=== PATIENT | male | born 1950 | race Caucasian/White ===

== ENCOUNTER 2017-03-11 20:05 | Emergency (ER) | payer BC ==
[~2017-03-11] VITALS: Ht 177.8 cm; Wt 105.2 kg
[~2017-03-11 20:05] MED LIST: ACHD5005 PO; ALLP100T PO; ALLP300T PO; AMLO5TAB2 PO; ASP325T NG; ASP81TEC PO; ASPI-586 PO; ASPI-624 PO; ASPI-999 PO; ASPI325T32 PO; ATOR40TA70 PO; CARV12.53 PO; CARV3.12 PO; CARV3.122 PO; CARV6.252 PO; CIPR500T78 PO; CLN.1TRX PO; CLOP75TA28 PO; CLOT45CR46 TOP; COLC0.6T7 PO; CPR500T PO; CTLP20T PO; CYCL10TA9 PO; ETD400T PO; EZET1TAB31 PO; FEBU40TA PO; FRSM40T PO; FURO40TA4 PO; HYDR-3454 PO; HYDR-3876 PO; HYDR118S10 PO; HYDR1TAB PO; HYDR1TAB8 OP; INDO50CA PO; LIDO20SO20 PO; LISI20TA2 PO; LISI40TA PO; LOSA100T28 PO; LSNP10T; NITR-68 PO; ONDA-42 SL; OXYC-12 PO; POTA10CA43 PO; PRAV80TA2 PO; SPIR25TA3 PO; TADA2.5T PO; TAMS0.4C2 PO; TAMS0.4C9 PO; TAMS0.4C98 PO; TEST75GE3 TD; TRAM50TA2 PO; [UNRECOGNIZED DRUG - REMARK]
[2017-03-11] MEDS ORDERED: DIGO125T18 (20:16)
[2017-03-11] MEDS ORDERED: TADA5TAB2 (20:16)
[2017-03-11] MEDS ORDERED: AMLO2.5T (20:16)
--- NOTE | 2017-03-11 20:36 | ED Lower Extremity ---
General Chief Complaint: Lower Extremity Stated Complaint: R FOOT PAIN Nursing Triage Note: PAIN TO DISTAL INFERIOR 1ST METATARSAL X2.5-3 WEEKS. NO KNOWN INJURY Nursing Sepsis Screen: No Definite Risk Source: patient Exam Limitations: no limitations History of Present Illness Time seen by provider: 20:33 Initial Comments To ER with reports of pain to the plantar surface of the right foot at the first MTP joint for the past 2 and half to 3 weeks. Has a history of gout but that typically affects the left foot and has never affected the right foot. He states that he may have exacerbated this while climbing on a ladder about a week ago. Onset: just prior to arrival Severity: moderate Pain/Injury Location: right 1st toe Allergies and Home Medications Allergies Coded Allergies: No Known Drug Allergies (Unverified , 10/23/09) Home Medications Amlodipine Besylate 2.5 Mg Tablet, (Reported) Aspirin 81 Mg Tablet.dr, 81 MG PO DAILY, (Reported) Carvedilol 3.125 Mg Tablet, 3.125 MG PO BID, (Reported) Clopidogrel Bisulfate 75 Mg Tablet, 75 MG PO DAILY, (Reported) Digoxin 125 Mcg Tablet, (Reported) Tadalafil 5 Mg Tablet, (Reported) Tamsulosin HCl 0.4 Mg Cap.er.24h, 0.4 MG PO DAILY, (Reported) Constitutional: see HPI EENTM: see HPI Respiratory: no symptoms reported Cardiovascular: no symptoms reported Genitourinary: no symptoms reported Musculoskeletal: see HPI Skin: no symptoms reported Psychiatric/Neurological: No Symptoms Reported Past Parmhsk-Bgjbgl-Blusoa Hx Patient Social History Alcohol Use: Denies Use Recreational Drug Use: No Smoking Status: Never a Smoker Recent Foreign Travel: No Contact w/Someone Who Travel: No Recent Infectious Disease Expo: No Recent Hopitalizations: No Immunizations Up To Date Tetanus Booster (TDap): Less than 5yrs Seasonal Allergies Seasonal Allergies: Yes Surgeries History of Surgeries: No (CAROTID, CARDIAC CATH--NO STENTS, CABGx4, R WRIST,EGD , ppm/aicd) Surgeries: Cardiac, CABG, Orthopedic, Pacemaker, Vascular Surgery Respiratory History of Respiratory Disorde: Yes Respiratory Disorders: Asthma Cardiovascular History of Cardiac Disorders: Yes (CAROTID DISEASE) Cardiac Disorders: Coronary Artery Disease, High Cholesterol, Hypertension, Peripheral Vascular Neurological History of Neurological Disord: Yes Neurological Disorders: TIA Reproductive System Hx Reproductive Disorders: No Sexually Transmitted Disease: No HIV/AIDS: No Genitourinary History of Genitourinary Disor: Yes Genitourinary Disorders: Prostate Problems, Kidney Stones Gastrointestinal History of Gastrointestinal Di: Yes Gastrointestinal Disorders: Gastroesophageal Reflux, Chronic Diarrhea Musculoskeletal History of Musculoskeletal Dis: Yes (RIGHT WRIST FX ORIF) Musculoskeletal Disorders: Chronic Back Pain, Fractures, Gout Endocrine History of Endocrine Disorders: No HEENT History of HEENT Disorders: No Loss of Vision: Bilateral Hearing Impairment: Deaf Cancer History of Cancer: No Psychosocial History of Psychiatric Problem: Yes Behavioral Health Disorders: Anxiety Integumentary History of Skin or Integumenta: No Blood Transfusions History of Blood Disorders: No Adverse Reaction to a Blood Tr: No Family Medical History Family Medial History: Cancer 03 FATHER (lung ca passed at 65) History of - disorder 03 MOTHER ( from complication of surgery with staph infection) Kidney disease 09 SISTER ( from severe uti at age 54) Physical Exam Vital Signs Vital Sign - Last 12Hours 03/11/17 20:16 Temp 97.1 Pulse 76 Resp 16 B/P (MAP) 155/97 Pulse Ox 98 O2 Delivery Room Air Capillary Refill : Less Than 3 Seconds General Appearance: WD/WN, no apparent distress HEENT: PERRL/EOMI, normal ENT inspection Neck: non-tender, full range of motion Respiratory: no respiratory distress, no accessory muscle use Gastrointestinal: normal bowel sounds, non tender, soft Hips: bilateral hip non-tender, bilateral hip normal inspection, bilateral hip normal range of motion Legs: bilateral leg non-tender, bilateral leg normal inspection, bilateral leg normal range of motion Knees: bilateral knee non-tender, bilateral knee normal inspection, bilateral knee normal range of motion Ankles: bilateral ankle non-tender, bilateral ankle normal inspection, bilateral ankle normal range of motion Feet: right foot pain, right foot soft tissue tenderness (there is tenderness to palpation as well as a bit of erythema to the plantar surface of the right foot over the first MTP joint. No pain to the medial or dorsal aspect of the right foot.) Progress/Results/Core Measures Results/Orders My Orders Orders - SHIVA DECKER APRN Foot, Right, 3 View (03/11/17 20:33) Vital Signs/I&O Vital Sign - Last 12Hours 03/11/17 20:16 Temp 97.1 Pulse 76 Resp 16 B/P (MAP) 155/97 Pulse Ox 98 O2 Delivery Room Air Blood Pressure Mean: 116 Diagnostic Imaging Diagonstic Imaging: Xray Comments NAME: JEFFREY MASON [facility] REC#: [id number] PT STATUS: REG ER : 1950 PHYSICIAN: SHIVA DECKER APRN ADMIT DATE: 03/11/17/ER Draft Date of Exam:03/11/17 FOOT, RIGHT, 3 VIEW INDICATION: Right foot injury. COMPARISON: None. FINDINGS: 3 views of the right foot demonstrate no fracture or dislocation. Articular surfaces are age-appropriate. There is no foreign body. IMPRESSION: No fracture or dislocation. Dictated on workstation # [id number] Dict: 03/11/172054 Trans: 03/11/172057 [id number] Interpreted by: JHONNY BECERRA Electronically signed by: Departure Impression Impression: Primary Impression: Right foot pain Disposition: HOME, SELF-CARE Condition: Stable Departure-Patient Inst. Decision time for Depature: 21:01 Referrals: DENY GOMEZ MD (PCP/Family) Primary Care Physician Patient Instructions: NO INSTRUCTIONS GIVEN Add. Discharge Instructions: 1. Continue to use Tylenol and Motrin as needed for pain 2. Follow-up with Dr. Gomez. Call tomorrow to make an appointment All discharge instructions reviewed with patient and/or family. Voiced understanding. SHIVA DECKER APRN Mar 11, 2017 20:36
--- NOTE | 2017-03-11 20:59 | Diagnostic Imaging Report ---
INDICATION: Right foot injury. COMPARISON: None. FINDINGS: 3 views of the right foot demonstrate no fracture or dislocation. Articular surfaces are age-appropriate. There is no foreign body. IMPRESSION: No fracture or dislocation. Dictated by: Dictated on workstation # [id number]
[2017-03-11 21:11] VITALS: BP 155/97
[2017-03-11] MEDS ORDERED: DEXAMETHASONE 10 MG/ML (DECADRON) 1 ML VIAL IM ONE (21:15)
[2017-03-11] MEDS ORDERED: KETOROLAC 60 MG/2 ML VIAL IM ONE (21:15)
== END 2017-03-11 21:20 | disposition home or self-care (01) ==
LOC: EDUNIT# 20:05 → ER 20:06
DX: M79.671 Pain in right foot (principal); I25.10 Atherosclerotic heart disease of native coronary artery without angina pectoris; E78.00 Pure hypercholesterolemia, unspecified; I10 Essential (primary) hypertension; I73.9 Peripheral vascular disease, unspecified; J45.909 Unspecified asthma, uncomplicated; K21.9 Gastro-esophageal reflux disease without esophagitis; M10.9 Gout, unspecified; F41.9 Anxiety disorder, unspecified; Z80.1 Family history of malignant neoplasm of trachea, bronchus and lung; Z95.0 Presence of cardiac pacemaker; Z87.19 Personal history of other diseases of the digestive system; Z79.82 Long term (current) use of aspirin; Z86.73 Personal history of transient ischemic attack (TIA), and cerebral infarction without residual deficits; Z95.1 Presence of aortocoronary bypass graft; Z87.442 Personal history of urinary calculi
CPT/HCPCS: 73630; 99284

== ENCOUNTER → 2017-04-17 | Outpatient (CLI) | payer BC ==
[~2017-04-17] MED LIST changes: +AMLO2.5T; +DIGO125T18; +TADA5TAB2
--- NOTE | 2017-04-17 09:16 | Diagnostic Imaging Report ---
EXAMINATION: Bilateral diagnostic mammogram with tomography evaluation. CAD is utilized. The current study was also evaluated with a Computer Aided Detection (CAD) system. No prior studies are available for comparison. INDICATION: Bilateral breast pain FINDINGS: There is bilateral retroareolar fibroglandular tissue seen suggestive of gynecomastia more prominent on the right side with no suspicious mass seen. There is an intramammary lymph node in the upper outer aspect of the right breast, probably benign measuring 5 mm. Benign-appearing calcifications are noted. IMPRESSION: Bilateral gynecomastia more prominent on the right side. Ultrasound evaluation pending. BI-RADS 0. ACR BI-RADS Category 0: Incomplete. (Needs additional imaging evaluation). Result letter will be mailed to the patient. Note: At least 10% of breast cancer is not imaged by mammography. Dictated by: Dictated on workstation # [id number]
--- NOTE | 2017-04-17 10:55 | Diagnostic Imaging Report ---
EXAMINATION: Bilateral breast ultrasound. TECHNIQUE: All four quadrants and the retroareolar region were examined on this study. FINDINGS: There are bilateral retroareolar breast masses seen. On the right side, it measures up to 2.6 x 1.2 x 1.2 cm. On the left side, it measures 2 x 1.2 x 1.4 cm. They are somewhat symmetric and have flame-shaped posterior borders. The combined ultrasound and mammographic appearance and symmetry in the retroareolar location are typical of gynecomastia. No definite superimposed suspicious mass. The 4 quadrants of the breasts were scanned bilaterally as well. There are axillary and axillary tail benign-appearing lymph nodes seen on the right side. No suspicious mass. IMPRESSION: The findings are suggestive of bilateral gynecomastia. Clinical followup is recommended. If symptoms persist or worsen, then a followup mammogram and ultrasound could be obtained to ensure no adverse development. ACR BI-RADS Category 2: Benign findings. Dictated by: Dictated on workstation # [id number]
== END ==
LOC: RAD 08:03
PROVIDERS: ATTEND Nurse Practitioner Family
DX: N64.9 Disorder of breast, unspecified (principal)
CPT/HCPCS: 77066

== ENCOUNTER 2017-09-21 23:27 | Emergency (ER) | payer OTHER, BC ==
[~2017-09-21] VITALS: Ht 177.8 cm; Wt 105.2 kg
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
[2017-09-22 01:16] VITALS: BP 135/88
--- OUTSIDE RECORDS SUMMARY | 2017-09-22 06:52 | XMS REPORT | Continuity of Care Document ---
Author Author [facility] Organization [facility] Address Unknown Phone Unavailable Allergies Active Description Code Type Severity Reaction Onset Reported/Identified Relationship to Patient Clinical Status Yes No Known Drug Allergies [id number] Drug Allergy Mild N/A 10/23/2009 Medications There is no data. Problems Date Dx Coded Attending Type Code Diagnosis Diagnosed By 04/26/2010 Ot 435.9 04/26/2010 Ot 784.59 05/16/2010 Ot 719.47 05/31/2010 Ot 401.9 05/31/2010 Ot 435.9 05/31/2010 Ot 782.0 05/31/2010 Ot V58.66 05/31/2010 Ot V58.69 08/07/2010 Ot 813.44 FX LOW RADIUS W ULNA-CL 08/07/2010 Ot 959.3 ELB/FOREARM/ WRST INJ NOS 08/07/2010 Ot E000.8 OTHER EXTERNAL CAUSE STATUS 08/07/2010 Ot E849[address] NEC 08/07/2010 Ot E885.9 FALL FROM SLIPPING, TRIPPING, OR STUMBLI 02/05/2011 Ot 274.9 GOUT NOS 02/05/2011 Ot 401.9 HYPERTENSION NOS 02/05/2011 Ot 780.4 DIZZINESS AND GIDDINESS 02/05/2011 Ot V45.81 AORTOCORONARY BYPASS 12/13/2012 JEFF HEREDIA KARLEY K Ot 401.9 HYPERTENSION NOS 12/13/2012 JEFF DO KARLEY K Ot V58.69 OTH MED,LT,CURRENT USE 12/16/2012 MAREN WADDELL, JANELL Temple Ot 592.1 CALCULUS OF URETER 12/16/2012 MAREN WADDELL, JANELL Temple Ot 789.09 ABDOMINAL PAIN, OTHER SPECIFIED SITE 01/07/2013 CORNELL FREEMAN MD Ot 592.0 CALCULUS OF KIDNEY 01/07/2013 CORNELL FREEMAN MD Ot 789.03 ABDOMINAL PAIN, RIGHT LOWER QUADRANT 01/08/2013 JAYSHREE YOUNG MD Ot 401.9 HYPERTENSION NOS 01/08/2013 JAYSHREE YOUNG MD Ot 493.90 ASTHMA, UNSPECIFIED 01/08/2013 JAYSHREE YOUNG MD Ot 592.0 CALCULUS OF KIDNEY 01/08/2013 JAYSHREE YOUNG MD Ot 789.03 ABDOMINAL PAIN, RIGHT LOWER QUADRANT 04/26/2013 ANASTACIA MCCONNELL Ot 840.9 SPRAIN SHOULDER/ARM NOS 04/26/2013 ANASTACIA MCCONNELL Ot 959.2 SHLDR/UPPER ARM INJ NOS 04/26/2013 ANASTACIA MCCONNELL Ot E000.8 OTHER EXTERNAL CAUSE STATUS 04/26/2013 ANASTACIA MCCONNELL Ot E849.0 ACCIDENT IN HOME 04/26/2013 ANASTACIA MCCONNELL Ot E927.0 OVEREXERTION FROM SUDDEN STRENUOUS MOVEM 06/19/2013 JOHANNA NUNEZ MD Ot 272.4 HYPERLIPIDEMIA NEC/NOS 06/19/2013 JOHANNA NUNEZ MD Ot 278.00 OBESITY, NOS 06/19/2013 JOHANNA NUNEZ MD Ot 401.9 HYPERTENSION NOS 06/19/2013 JOHANNA NUNEZ MD Ot 414.00 CORON ATHEROSCLER NOS TYPE VESSEL, NATIV 06/19/2013 JOHANNA NUNEZ MD Ot 786.50 CHEST PAIN NOS 06/19/2013 JOHANNA NUNEZ MD Ot V45.81 AORTOCORONARY BYPASS 06/19/2013 JOHANNA NUNEZ MD Ot V85.33 BODY MASS INDEX 33.0-33.9, ADULT 09/04/2013 ANASTACIA MCCONNELL Ot 112.9 CANDIDIASIS SITE NOS 09/04/2013 ANASTACIA MCCONNELL Ot 274.9 GOUT NOS 09/04/2013 ANASTACIA MCCONNELL Ot 729.5 PAIN IN LIMB 09/04/2013 ANASTACIA MCCONNELL Ot 782.3 EDEMA 10/30/2013 IGOR WADDELL, GINA Browne Ot 210.4 BENIGN DENITA MOUTH NEC/NOS 12/20/2014 Ot 414.01 12/20/2014 Ot 424.0 12/20/2014 Ot 429.3 12/20/2014 Ot V45.81 12/20/2014 Ot 272.4 12/20/2014 Ot 401.9 12/20/2014 Ot 780.79 12/20/2014 MAREN TULIO Ra FEDERAL LAW CLERK Ot 401.9 12/20/2014 MAREN TULIO Ra FEDERAL LAW CLERK Ot 414.01 12/20/2014 KAN WADDELL, WON Temple Ot 592.0 12/20/2014 AIMEE WADDELL FAC, ALI FACP CCDS Ot 272.4 12/20/2014 AIMEE WADDELL FAC, ALI FACP CCDS Ot 401.9 12/20/2014 AIMEE WADDELL FAC, ALI FACP CCDS Ot 414.00 12/20/2014 AIMEE WADDELL FAC, ALI FACP CCDS Ot 433.10 12/20/2014 AIMEE WADDELL FAC, ALI FACP CCDS Ot 780.79 12/20/2014 AIMEE WADDELL FAC, ALI FACP CCDS Ot V45.89 12/20/2014 IGOR WADDELL, GINA P Ot 784.2 12/20/2014 IGOR WADDELL, GINA P Ot V72.63 12/20/2014 IGOR WADDELL, GINA P Ot V72.81 12/20/2014 IGOR WADDELL, GINA P Ot V72.83 12/20/2014 IGOR WADDELL, GINA P Ot V72.84 12/20/2014 IGOR WADDELL, GINA P Ot V74.8 12/20/2014 CHARANJIT WALLER L FEDERAL LAW CLERK Ot 272.4 12/20/2014 CHARANJIT WALLER L FEDERAL LAW CLERK Ot 401.9 12/20/2014 BAIMACHARANJIT L FEDERAL LAW CLERK Ot 414.00 12/20/2014 BAIMA CHARANJIT L FEDERAL LAW CLERK Ot 425.4 12/20/2014 BAIMA CHARANJIT L FEDERAL LAW CLERK Ot 447.9 12/20/2014 BAIMA CHARANJIT L FEDERAL LAW CLERK Ot V45.89 12/20/2014 CHRISTIE NAYAK FEDERAL LAW CLERK Ot 272.4 12/20/2014 CHRISTIE NAYAK FEDERAL LAW CLERK Ot 274.9 12/20/2014 CHRISTIE NAYAK FEDERAL LAW CLERK Ot 401.9 01/07/2015 CHRISTIE NAYAK FEDERAL LAW CLERK Ot 257.2 01/07/2015 CHRISTIE NAYAK FEDERAL LAW CLERK Ot 414.00 01/07/2015 CHRISTIE NAYAK FEDERAL LAW CLERK Ot 433.10 01/09/2015 Ot 414.01 01/09/2015 Ot 424.0 01/09/2015 Ot 429.3 01/09/2015 Ot V45.81 01/09/2015 Ot 272.4 01/09/2015 Ot 401.9 01/09/2015 Ot 780.79 01/09/2015 TULIO ENGEL FEDERAL LAW CLERK Ot 401.9 01/09/2015 TULIO ENGEL FEDERAL LAW CLERK Ot 414.01 01/09/2015 KAN WADDELL, WON A Ot 592.0 01/09/2015 AIMEE WADDELL FACC, ALI FACP CCDS Ot 272.4 01/09/2015 AIMEE WADDELL FACC, ALI FACP CCDS Ot 401.9 01/09/2015 AIMEE WADDELL FACC, ALI FACP CCDS Ot 414.00 01/09/2015 AIMEE WADDELL FACC, ALI FACP CCDS Ot 433.10 01/09/2015 AIMEE WADDELL FACC, ALI FACP CCDS Ot 780.79 01/09/2015 AIMEE WADDELL FACC, ALI FACP CCDS Ot V45.89 01/09/2015 IGOR WADDELL, GINA P Ot 784.2 01/09/2015 IGOR WADDELL, GINA P Ot V72.63 01/09/2015 IGOR WADDELL, GINA P Ot V72.81 01/09/2015 IGOR WADDELL, GINA P Ot V72.83 01/09/2015 IGOR WADDELL, GINA P Ot V72.84 01/09/2015 IGOR WADDELL, GINA P Ot V74.8 01/09/2015 CHARANJIT WALLER L FEDERAL LAW CLERK Ot 272.4 01/09/2015 CHARANJIT WALLER L FEDERAL LAW CLERK Ot 401.9 01/09/2015 CHARANJIT WALLER L FEDERAL LAW CLERK Ot 414.00 01/09/2015 CHRISTIN CHARANJIT L FEDERAL LAW CLERK Ot 425.4 01/09/2015 BAIMA CHARANJIT L FEDERAL LAW CLERK Ot 447.9 01/09/2015 CHARANJIT WALLER L FEDERAL LAW CLERK Ot V45.89 01/09/2015 CHRISTIE NAYAK FEDERAL LAW CLERK Ot 272.4 01/09/2015 CHRISTIE NAYAK FEDERAL LAW CLERK Ot 274.9 01/09/2015 CHRISTIE NAYAK FEDERAL LAW CLERK Ot 401.9 01/09/2015 CHRISTIE NAYAK FEDERAL LAW CLERK Ot 257.2 01/09/2015 CHRISTIE NAYAK FEDERAL LAW CLERK Ot 414.00 01/09/2015 NAEL CHRISTIE Knapp FEDERAL LAW CLERK Ot 433.10 01/22/2015 Ot 414.01 01/22/2015 Ot 424.0 01/22/2015 Ot 429.3 01/22/2015 Ot V45.81 01/22/2015 Ot 272.4 01/22/2015 Ot 401.9 01/22/2015 Ot 780.79 01/22/2015 MARENTULIO FEDERAL LAW CLERK Ot 401.9 01/22/2015 MARENTULIO FEDERAL LAW CLERK Ot 414.01 01/22/2015 KAN WADDELL, WON Temple Ot 592.0 01/22/2015 AIMEE WADDELL FAC, ALI FACP CCDS Ot 272.4 01/22/2015 AIMEE WADDELL [facility], ALI FACP CCDS Ot 401.9 01/22/2015 AIMEE WADDELL [facility], ALI FACP CCDS Ot 414.00 01/22/2015 AIMEE WADDELL FAC, ALI FACP CCDS Ot 433.10 01/22/2015 AIMEE WADDELL [facility], ALI FACP CCDS Ot 780.79 01/22/2015 AIMEE WADDELL [facility], ALI FACP CCDS Ot V45.89 01/22/2015 IGOR WADDELL, GINA P Ot 784.2 01/22/2015 IGOR WADDELL, GINA P Ot V72.63 01/22/2015 IGOR WADDELL, GINA P Ot V72.81 01/22/2015 IGOR WADDELL, GINA P Ot V72.83 01/22/2015 IGOR WADDELL, GIAN P Ot V72.84 01/22/2015 IGOR WADDELL, GINA P Ot V74.8 01/22/2015 CHARANJIT WALLER L FEDERAL LAW CLERK Ot 272.4 01/22/2015 BAIAMANDA CHARANJIT L FEDERAL LAW CLERK Ot 401.9 01/22/2015 BAIAMANDA CHARANJIT L FEDERAL LAW CLERK Ot 414.00 01/22/2015 BAIMA CHARANJIT L FEDERAL LAW CLERK Ot 425.4 01/22/2015 BAIMA, CHARANJIT L FEDERAL LAW CLERK Ot 447.9 01/22/2015 BAIMA CHARANJIT L FEDERAL LAW CLERK Ot V45.89 01/22/2015 CHRISTIE NAYAK FEDERAL LAW CLERK Ot 272.4 01/22/2015 CHRISTIE NAYAK FEDERAL LAW CLERK Ot 274.9 01/22/2015 CHRISTIE NAYAK FEDERAL LAW CLERK Ot 401.9 01/22/2015 NAELCHRISTIE FEDERAL LAW CLERK Ot 257.2 01/22/2015 NAYAKCHRISTIE FEDERAL LAW CLERK Ot 414.00 01/22/2015 CHRISTIE NAYAK FEDERAL LAW CLERK Ot 433.10 01/22/2015 KARLEY AGUILAR DO Ot 592.1 CALCULUS OF URETER 01/22/2015 KARLEY AGUILAR DO Ot 789.00 ABDOMINAL PAIN, UNSPECIFIED SITE 01/24/2015 Ot 414.01 01/24/2015 Ot 424.0 01/24/2015 Ot 429.3 01/24/2015 Ot V45.81 01/24/2015 Ot 272.4 01/24/2015 Ot 401.9 01/24/2015 Ot 780.79 01/24/2015 MARENTULIO FEDERAL LAW CLERK Ot 401.9 01/24/2015 TULIO ENGEL FEDERAL LAW CLERK Ot 414.01 01/24/2015 KAN WADDELL, WON Temple Ot 592.0 01/24/2015 AIMEE WADDELL FACC, ALI FACP CCDS Ot 272.4 01/24/2015 AIMEE WADDELL FACC, ALI FACP CCDS Ot 401.9 01/24/2015 AIMEE WADDELL FACC, ALI FACP CCDS Ot 414.00 01/24/2015 AIMEE WADDELL FACC, ALI FACP CCDS Ot 433.10 01/24/2015 AIMEE WADDELL FACC, ALI FACP CCDS Ot 780.79 01/24/2015 AIMEE WADDELL FACC, ALI FACP CCDS Ot V45.89 01/24/2015 IGOR WADDELL, GINA P Ot 784.2 01/24/2015 IGOR WADDELL, GINA P Ot V72.63 01/24/2015 IGOR WADDELL, GINA P Ot V72.81 01/24/2015 IGOR WADDELL, GINA P Ot V72.83 01/24/2015 IGOR WADDELL, GINA P Ot V72.84 01/24/2015 IGOR WADDELL, GINA P Ot V74.8 01/24/2015 CHARANJIT WALLER L FEDERAL LAW CLERK Ot 272.4 01/24/2015 CHARANJIT WALLER L FEDERAL LAW CLERK Ot 401.9 01/24/2015 CHARANJIT WALLER L FEDERAL LAW CLERK Ot 414.00 01/24/2015 CHARANJIT WALLER L FEDERAL LAW CLERK Ot 425.4 01/24/2015 CHARANJIT WALLER L FEDERAL LAW CLERK Ot 447.9 01/24/2015 CHARANJIT WALLER FEDERAL LAW CLERK Ot V45.89 01/24/2015 NAELCHRISTIE FEDERAL LAW CLERK Ot 272.4 01/24/2015 CHRISTIE NAYAK FEDERAL LAW CLERK Ot 274.9 01/24/2015 CHRISTIE NAYAK FEDERAL LAW CLERK Ot 401.9 01/24/2015 CHRISTIE NAYAK FEDERAL LAW CLERK Ot 257.2 01/24/2015 NAYAKCHRISTIE FEDERAL LAW CLERK Ot 414.00 01/24/2015 NAYAKCHRISTIE FEDERAL LAW CLERK Ot 433.10 01/25/2015 KAN WADDELL, WON Temple Ot 592.0 CALCULUS OF KIDNEY 01/25/2015 KAN WADDELL, WON Temple Ot 592.1 CALCULUS OF URETER 01/25/2015 KAN WADDELL, WON Temple Ot 600.00 HYPERTROPHY (BENIGN) OF PROSTATE W/O URI 01/26/2015 KAN WADDELL, WON A Ot 592.9 01/26/2015 KAN WADDELL, WON A Ot 592.9 01/31/2015 KAN WADDELL, WON A Ot 592.0 01/31/2015 KAN WADDELL, WON A Ot 592.1 01/31/2015 KAN WADDELL, WON A Ot V72.63 01/31/2015 KAN WADDELL, WON A Ot V72.81 01/31/2015 KAN WADDELL, WON A Ot V74.8 02/10/2015 KAN WADDELL, WON A Ot 592.9 02/10/2015 KAN WADDELL, WON A Ot 592.0 02/10/2015 KAN WADDELL, WON A Ot 592.1 02/10/2015 KAN WADDELL, WON A Ot V72.63 02/10/2015 KAN WADDELL, WON A Ot V72.81 02/10/2015 KAN WADDELL, WON A Ot V74.8 02/18/2015 KAN WADDELL, WON A Ot V72.84 02/18/2015 KAN WADDELL, WON A Ot V72.84 02/22/2015 KAN WADDELL, WON Temple Ot 592.0 CALCULUS OF KIDNEY 02/24/2015 KAN WADDELL, WON A Ot 592.0 02/24/2015 KAN WADDELL, WON A Ot 562.10 02/24/2015 KAN WADDELL, WON A Ot 592.0 02/24/2015 KAN WADDELL, WON A Ot 592.1 03/25/2015 KAN WADDELL, WON A Ot 592.0 03/25/2015 KAN WADDELL, WON A Ot V67.09 04/07/2015 Ot 414.01 04/07/2015 Ot 424.0 04/07/2015 Ot 429.3 04/07/2015 Ot V45.81 04/07/2015 Ot 272.4 04/07/2015 Ot 401.9 04/07/2015 Ot 780.79 04/07/2015 TULIO ENEGL FEDERAL LAW CLERK Ot 401.9 04/07/2015 TULIO ENGEL M FEDERAL LAW CLERK Ot 414.01 04/07/2015 KAN WADDELL, WON A Ot 592.0 04/07/2015 AIMEE WADDELL FACC, ALI FACP CCDS Ot 272.4 04/07/2015 AIMEE WADDELL FACC, ALI FACP CCDS Ot 401.9 04/07/2015 AIMEE WADDELL FACC, ALI FACP CCDS Ot 414.00 04/07/2015 AIMEE WADDELL FACC, ALI FACP CCDS Ot 433.10 04/07/2015 AIMEE WADDELL FACC, ALI FACP CCDS Ot 780.79 04/07/2015 AIMEE WADDELL FACC, ALI FACP CCDS Ot V45.89 04/07/2015 IGOR WADDELL, GINA P Ot 784.2 04/07/2015 IGOR WADDELL, GINA P Ot V72.63 04/07/2015 IGOR WADDELL, GINA P Ot V72.81 04/07/2015 IGOR WADDELL, GINA P Ot V72.83 04/07/2015 IGOR WADDELL, GINA P Ot V72.84 04/07/2015 IGOR WADDELL, GINA P Ot V74.8 04/07/2015 CHARANJIT AWLLER FEDERAL LAW CLERK Ot 272.4 04/07/2015 CHARANJIT WALLER FEDERAL LAW CLERK Ot 401.9 04/07/2015 CHARANJIT WALLER L FEDERAL LAW CLERK Ot 414.00 04/07/2015 CHARANJIT WALLER FEDERAL LAW CLERK Ot 425.4 04/07/2015 CHARANJIT WALLER FEDERAL LAW CLERK Ot 447.9 04/07/2015 CHARANJIT WALLER FEDERAL LAW CLERK Ot V45.89 04/07/2015 CHRISTIE NAYAK FEDERAL LAW CLERK Ot 272.4 04/07/2015 CHRISTIE NAYAK FEDERAL LAW CLERK Ot 274.9 04/07/2015 CHRISTIE NAYAK FEDERAL LAW CLERK Ot 401.9 04/07/2015 CHRISTIE NAYAK FEDERAL LAW CLERK Ot 257.2 04/07/2015 CHRISTIE NAYAK FEDERAL LAW CLERK Ot 414.00 04/07/2015 CHRISTIE NAYAK FEDERAL LAW CLERK Ot 433.10 04/07/2015 KAN WADDELL, WON A Ot 592.9 04/07/2015 KAN WADDELL, WON A Ot 592.0 04/07/2015 KAN WADDELL, WON A Ot 592.1 04/07/2015 KAN WADDELL, WON A Ot V72.63 04/07/2015 KAN WADDELL, WON A Ot V72.81 04/07/2015 KAN WADDELL, WON A Ot V74.8 04/07/2015 KAN WADDELL, WON A Ot V72.84 04/07/2015 KAN WADDELL, WON A Ot 592.0 04/07/2015 KAN WADEDLL, WON A Ot 562.10 04/07/2015 KAN WADDELL, WON A Ot 592.0 04/07/2015 KAN WADDELL, WON A Ot 592.1 04/07/2015 KAN WADDELL, WON A Ot 592.0 04/07/2015 KAN WADDELL, WON A Ot V72.84 04/07/2015 KAN WADDELL, WON A Ot 592.0 04/07/2015 KAN WADDELL, WON A Ot V67.09 04/07/2015 Ot 414.01 04/07/2015 Ot 424.0 04/07/2015 Ot 429.3 04/07/2015 Ot V45.81 04/07/2015 Ot 272.4 04/07/2015 Ot 401.9 04/07/2015 Ot 780.79 04/07/2015 TULIO ENGEL FEDERAL LAW CLERK Ot 401.9 04/07/2015 TULIO ENGEL FEDERAL LAW CLERK Ot 414.01 04/07/2015 KAN WADDELL, WON A Ot 592.0 04/07/2015 AIMEE WADDELL [facility], ALI FACP CCDS Ot 272.4 04/07/2015 AIMEE WADDELL [facility], ALI FACP CCDS Ot 401.9 04/07/2015 AIMEE WADDELL [facility], ALI FACP CCDS Ot 414.00 04/07/2015 AIMEE WADDELL [facility], ALI FACP CCDS Ot 433.10 04/07/2015 AIMEE WADDELL [facility], ALI FACP CCDS Ot 780.79 04/07/2015 AIMEE WADDELL [facility], ALI FACP CCDS Ot V45.89 04/07/2015 IGOR WADDELL, GINA P Ot 784.2 04/07/2015 IGOR WADDELL, GINA P Ot V72.63 04/07/2015 IGOR WADDELL, GINA P Ot V72.81 04/07/2015 IGOR WADDELL, GINA P Ot V72.83 04/07/2015 IGOR WADDELL, GINA P Ot V72.84 04/07/2015 IGOR WADDELL, GINA P Ot V74.8 04/07/2015 CHARANJIT WALLER FEDERAL LAW CLERK Ot 272.4 04/07/2015 CHARANJIT WALLER FEDERAL LAW CLERK Ot 401.9 04/07/2015 CHARANJIT WALLER L FEDERAL LAW CLERK Ot 414.00 04/07/2015 CHARANJIT WALLER FEDERAL LAW CLERK Ot 425.4 04/07/2015 CHARANJIT WALLER L FEDERAL LAW CLERK Ot 447.9 04/07/2015 CHARANJIT WALLER L FEDERAL LAW CLERK Ot V45.89 04/07/2015 CHRISTIE NAYAK FEDERAL LAW CLERK Ot 272.4 04/07/2015 CHRISTIE NAYAK FEDERAL LAW CLERK Ot 274.9 04/07/2015 CHRISTIE NAYAK FEDERAL LAW CLERK Ot 401.9 04/07/2015 CHRISTIE NAYAK FEDERAL LAW CLERK Ot 257.2 04/07/2015 CHRISTIE NAYAK FEDERAL LAW CLERK Ot 414.00 04/07/2015 CHRISTIE NAYAK FEDERAL LAW CLERK Ot 433.10 04/07/2015 KAN WADDELL, WON Temple Ot 592.9 04/07/2015 KAN WADDELL, WON A Ot 592.0 04/07/2015 KAN WADDELL, WON A Ot 592.1 04/07/2015 KAN WADDELL, WON A Ot V72.63 04/07/2015 KAN WADDELL, WON A Ot V72.81 04/07/2015 KAN WADDELL, WON A Ot V74.8 04/07/2015 KAN WADDELL, WON A Ot V72.84 04/07/2015 KAN WADDELL, WON A Ot 592.0 04/07/2015 KAN WADDELL, WON A Ot 562.10 04/07/2015 KAN WADDELL, WON A Ot 592.0 04/07/2015 KAN WADDELL, WON A Ot 592.1 04/07/2015 KAN WADDELL, WON A Ot 592.0 04/07/2015 KAN WADDELL, WON A Ot V72.84 04/07/2015 KAN WADDELL, WON A Ot 592.0 04/07/2015 KAN WADDELL, WON A Ot V67.09 07/03/2015 Ot 414.01 07/03/2015 Ot 424.0 07/03/2015 Ot 429.3 07/03/2015 Ot V45.81 07/03/2015 Ot 272.4 07/03/2015 Ot 401.9 07/03/2015 Ot 780.79 07/03/2015 TULIO ENGEL FEDERAL LAW CLERK Ot 401.9 07/03/2015 TULIO ENGEL M FEDERAL LAW CLERK Ot 414.01 07/03/2015 KAN WADDELL, WON Temple Ot 592.0 07/03/2015 AIMEE WADDELL FACC, ALI FACP CCDS Ot 272.4 07/03/2015 AIMEE WADDELL FACC, ALI FACP CCDS Ot 401.9 07/03/2015 AIMEE WADDELL FACC, ALI FACP CCDS Ot 414.00 07/03/2015 AIMEE WADDELL FACC, ALI FACP CCDS Ot 433.10 07/03/2015 AIMEE WADDELL FACC, ALI FACP CCDS Ot 780.79 07/03/2015 AIMEE WADDELL FACC, ALI FACP CCDS Ot V45.89 07/03/2015 IGOR WADDELL, GINA P Ot 784.2 07/03/2015 IGOR WADDELL, GINA P Ot V72.63 07/03/2015 IGOR WADDELL, GINA P Ot V72.81 07/03/2015 IGOR WADDELL, GINA P Ot V72.83 07/03/2015 IGOR WADDELL, GINA P Ot V72.84 07/03/2015 IGOR WADDELL, GINA P Ot V74.8 07/03/2015 BAIAMANDA, CHARANJIT L FEDERAL LAW CLERK Ot 272.4 07/03/2015 BAIAMANDA, CHARANJIT L FEDERAL LAW CLERK Ot 401.9 07/03/2015 BAIMA, CHARANJIT L FEDERAL LAW CLERK Ot 414.00 07/03/2015 BAIAMANDA, CHARANJIT L FEDERAL LAW CLERK Ot 425.4 07/03/2015 BAIAMANDA, CHARANJIT L FEDERAL LAW CLERK Ot 447.9 07/03/2015 BAIAMANDA, CHARANJIT L FEDERAL LAW CLERK Ot V45.89 07/03/2015 NAYAKCHRISTIE FEDERAL LAW CLERK Ot 272.4 07/03/2015 NAYAKCHRISTIE FEDERAL LAW CLERK Ot 274.9 07/03/2015 CHRISTIE NAYAK FEDERAL LAW CLERK Ot 401.9 07/03/2015 NAYAKCHRISTIE FEDERAL LAW CLERK Ot 257.2 07/03/2015 NAYAKCHRISTIE FEDERAL LAW CLERK Ot 414.00 07/03/2015 NAELCHRISTIE FEDERAL LAW CLERK Ot 433.10 07/03/2015 KAN WADDELL, WON A Ot 592.9 07/03/2015 KAN WADDELL, WON A Ot 592.0 07/03/2015 KAN WADDELL, WON A Ot 592.1 07/03/2015 KAN WADDELL, WON A Ot V72.63 07/03/2015 KAN WADDELL, WON A Ot V72.81 07/03/2015 KNA WADDELL, WON A Ot V74.8 07/03/2015 KAN WADDELL, WON A Ot V72.84 07/03/2015 KAN WDADELL, WON A Ot 592.0 07/03/2015 KAN WADDELL, WON A Ot 562.10 07/03/2015 KAN WADDELL, WON A Ot 592.0 07/03/2015 KAN WADDELL, WON A Ot 592.1 07/03/2015 KAN WADDELL, WON A Ot 592.0 07/03/2015 KAN WADDELL, WON A Ot V72.84 07/03/2015 KAN WADDELL, WON A Ot 592.0 07/03/2015 KAN WADDELL, WON A Ot V67.09 07/03/2015 WEI WADDELL, GARRISON Zarate Ot 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, 07/03/2015 WEI WADDELL, GARRISON Zarate Ot G45.9 TRANSIENT CEREBRAL ISCHEMIC ATTACK, UNSP 07/03/2015 WEI WADDELL, GARRISON Zarate Ot I10 ESSENTIAL (PRIMARY) HYPERTENSION 07/03/2015 WEI WADDELL, GARRISON Zarate Ot I51.7 CARDIOMEGALY 07/03/2015 WEI WADDELL, GARRISON Zarate Ot Z95.1 PRESENCE OF AORTOCORONARY BYPASS GRAFT 07/04/2015 Ot 414.01 07/04/2015 Ot 424.0 07/04/2015 Ot 429.3 07/04/2015 Ot V45.81 07/04/2015 Ot 272.4 07/04/2015 Ot 401.9 07/04/2015 Ot 780.79 07/04/2015 MARENTULIO FEDERAL LAW CLERK Ot 401.9 07/04/2015 MAREN TULIO Knapp FEDERAL LAW CLERK Ot 414.01 07/04/2015 KAN WADDELL, WON Temple Ot 592.0 07/04/2015 AIMEE WADDELL FACC, ALI FACP CCDS Ot 272.4 07/04/2015 AIMEE WADDELL FACC, ALI FACP CCDS Ot 401.9 07/04/2015 AIMEE WADDELL FACC, ALI FACP CCDS Ot 414.00 07/04/2015 AIMEE WADDELL FACC, ALI FACP CCDS Ot 433.10 07/04/2015 AIMEE WADDELL FACC, ALI FACP CCDS Ot 780.79 07/04/2015 AIMEE WADDELL FACC, ALI FACP CCDS Ot V45.89 07/04/2015 IGOR WADDELL, GINA P Ot 784.2 07/04/2015 IGOR WADDELL, GINA P Ot V72.63 07/04/2015 IGOR WADDELL, GINA P Ot V72.81 07/04/2015 IGOR WADDELL, GINA P Ot V72.83 07/04/2015 IGOR WADDELL, GINA P Ot V72.84 07/04/2015 IGOR WADDELL, GINA P Ot V74.8 07/04/2015 CHARANJIT WALLER FEDERAL LAW CLERK Ot 272.4 07/04/2015 CHARANJIT WALLER FEDERAL LAW CLERK Ot 401.9 07/04/2015 CHARANJIT WALLER FEDERAL LAW CLERK Ot 414.00 07/04/2015 CHARANJIT WALLER FEDERAL LAW CLERK Ot 425.4 07/04/2015 CHARANJIT WALLER FEDERAL LAW CLERK Ot 447.9 07/04/2015 CHARANJIT WALLER FEDERAL LAW CLERK Ot V45.89 07/04/2015 CHRISTIE NAYAK FEDERAL LAW CLERK Ot 272.4 07/04/2015 CHRISTIE NAYAK FEDERAL LAW CLERK Ot 274.9 07/04/2015 CHRISTIE NAYAK FEDERAL LAW CLERK Ot 401.9 07/04/2015 CHRISTIE NAYAK FEDERAL LAW CLERK Ot 257.2 07/04/2015 CHRISTIE NAYAK FEDERAL LAW CLERK Ot 414.00 07/04/2015 CHRISTIE NAYAK FEDERAL LAW CLERK Ot 433.10 07/04/2015 KAN WADDELL, WON A Ot 592.9 07/04/2015 KAN WADDELL, WON A Ot 592.0 07/04/2015 KAN WADDELL, WON A Ot 592.1 07/04/2015 KAN WADDELL, WON A Ot V72.63 07/04/2015 KAN WADDELL, WON A Ot V72.81 07/04/2015 KAN WADDELL, WON A Ot V74.8 07/04/2015 KAN WADDELL, WON A Ot V72.84 07/04/2015 KAN WADDELL, WON A Ot 592.0 07/04/2015 KAN WADDELL, WON A Ot 562.10 07/04/2015 KAN WADDELL, WON A Ot 592.0 07/04/2015 KAN WADDELL, WON A Ot 592.1 07/04/2015 KAN WADDELL, WON A Ot 592.0 07/04/2015 KAN WADDELL, WON A Ot V72.84 07/04/2015 KAN WADDELL, WON A Ot 592.0 07/04/2015 KAN WADDELL, WON A Ot V67.09 07/21/2015 Ot 414.01 07/21/2015 Ot 424.0 07/21/2015 Ot 429.3 07/21/2015 Ot V45.81 07/21/2015 Ot 272.4 07/21/2015 Ot 401.9 07/21/2015 Ot 780.79 07/21/2015 TULIO ENGEL FEDERAL LAW CLERK Ot 401.9 07/21/2015 TULIO ENGEL FEDERAL LAW CLERK Ot 414.01 07/21/2015 KAN WADDELL, WON A Ot 592.0 07/21/2015 AIMEE WADDELL FAC, ALI FACP CCDS Ot 272.4 07/21/2015 AIMEE WADDELL [facility], ALI FACP CCDS Ot 401.9 07/21/2015 AIMEE WADDELL [facility], ALI FACP CCDS Ot 414.00 07/21/2015 AIMEE WADDELL [facility], ALI FACP CCDS Ot 433.10 07/21/2015 AIMEE WADDELL [facility], ALI FACP CCDS Ot 780.79 07/21/2015 AIMEE WADDELL [facility], ALI FACP CCDS Ot V45.89 07/21/2015 IGOR WADDELL, GINA P Ot 784.2 07/21/2015 IGOR WADDELL, GINA P Ot V72.63 07/21/2015 IGOR WADDELL, GINA P Ot V72.81 07/21/2015 IGOR WADDELL, GINA P Ot V72.83 07/21/2015 IGOR WADDELL, GINA P Ot V72.84 07/21/2015 IGOR WADDELL, GINA P Ot V74.8 07/21/2015 CHARANJIT WALLER FEDERAL LAW CLERK Ot 272.4 07/21/2015 CHARANJIT WALLER L FEDERAL LAW CLERK Ot 401.9 07/21/2015 CHARANJIT WALLER L FEDERAL LAW CLERK Ot 414.00 07/21/2015 CHARANJIT WALLER L FEDERAL LAW CLERK Ot 425.4 07/21/2015 CHARANJIT WALLER L FEDERAL LAW CLERK Ot 447.9 07/21/2015 CHARANJIT WALLER L FEDERAL LAW CLERK Ot V45.89 07/21/2015 CHRISTIE NAYAK FEDERAL LAW CLERK Ot 272.4 07/21/2015 CHRISTIE NAYAK FEDERAL LAW CLERK Ot 274.9 07/21/2015 CHRISTIE NAYAK FEDERAL LAW CLERK Ot 401.9 07/21/2015 CHRISTIE NAYAK FEDERAL LAW CLERK Ot 257.2 07/21/2015 CHRISTIE NAYAK FEDERAL LAW CLERK Ot 414.00 07/21/2015 CHRISTIE NAYAK FEDERAL LAW CLERK Ot 433.10 07/21/2015 KAN WADDELL, WON A Ot 592.9 07/21/2015 KAN WADDELL, WON A Ot 592.0 07/21/2015 KAN WADDELL, WON A Ot 592.1 07/21/2015 KAN WADDELL, WON A Ot V72.63 07/21/2015 KAN WADDELL, WON A Ot V72.81 07/21/2015 KAN WADDELL, WON A Ot V74.8 07/21/2015 KAN WADDELL, WON A Ot V72.84 07/21/2015 KAN WADDELL, WON A Ot 592.0 07/21/2015 KNA WADDELL, WON A Ot 562.10 07/21/2015 KAN WADDELL, WON A Ot 592.0 07/21/2015 KAN WADDELL, WON A Ot 592.1 07/21/2015 KAN WADDELL, WON A Ot 592.0 07/21/2015 KAN WADDELL, WON A Ot V72.84 07/21/2015 KAN WADDELL, WON A Ot 592.0 07/21/2015 KAN WADDELL, WON A Ot V67.09 07/21/2015 CHRISTIE NAYAK FEDERAL LAW CLERK Ot G45.9 07/21/2015 CHRISTIE NAYAK FEDERAL LAW CLERK Ot H53.8 07/21/2015 CHRISTIE NAYAK FEDERAL LAW CLERK Ot R03.0 07/22/2015 CHRISTIE NAYAK FEDERAL LAW CLERK Ot G45.9 07/22/2015 CHRISTIE NAYAK FEDERAL LAW CLERK Ot H53.8 07/22/2015 CHRISTIE NAYAK FEDERAL LAW CLERK Ot R03.0 09/01/2015 Ot 414.01 09/01/2015 Ot 424.0 09/01/2015 Ot 429.3 09/01/2015 Ot V45.81 09/01/2015 Ot 272.4 09/01/2015 Ot 401.9 09/01/2015 Ot 780.79 09/01/2015 TULIO ENGEL FEDERAL LAW CLERK Ot 401.9 09/01/2015 TULIO ENGEL FEDERAL LAW CLERK Ot 414.01 09/01/2015 KAN WADDELL, WON A Ot 592.0 09/01/2015 AIMEE WADDELL FACC, ALI FACP CCDS Ot 272.4 09/01/2015 AIMEE WADDELL FACC, ALI FACP CCDS Ot 401.9 09/01/2015 AIMEE WADDELL FACC, ALI FACP CCDS Ot 414.00 09/01/2015 AIMEE WADDELL FACC, ALI FACP CCDS Ot 433.10 09/01/2015 AIMEE WADDELL FAC, ALI FACP CCDS Ot 780.79 09/01/2015 AIMEE WADDELL FACC, ALI FACP CCDS Ot V45.89 09/01/2015 IGOR WADDELL, GINA P Ot 784.2 09/01/2015 IGOR WADDELL, GINA P Ot V72.63 09/01/2015 IGOR WADDELL, GINA P Ot V72.81 09/01/2015 IGOR WADDELL, GINA P Ot V72.83 09/01/2015 IGOR WADDELL, GINA P Ot V72.84 09/01/2015 IGOR WADDELL, GINA P Ot V74.8 09/01/2015 BAIMAMELACHARANJIT L FEDERAL LAW CLERK Ot 272.4 09/01/2015 BAIMA CHARANJIT L FEDERAL LAW CLERK Ot 401.9 09/01/2015 BAIMA, CHARANJIT L FEDERAL LAW CLERK Ot 414.00 09/01/2015 BAIMA, CHARANJIT L FEDERAL LAW CLERK Ot 425.4 09/01/2015 BAIMA, CHARANJIT L FEDERAL LAW CLERK Ot 447.9 09/01/2015 BAIMA CHARANJIT L FEDERAL LAW CLERK Ot V45.89 09/01/2015 CHRISTIE NAYAK FEDERAL LAW CLERK Ot 272.4 09/01/2015 CHRISTIE NAYAK FEDERAL LAW CLERK Ot 274.9 09/01/2015 CHRISTIE NAYAK FEDERAL LAW CLERK Ot 401.9 09/01/2015 CHRISTIE NAYAK FEDERAL LAW CLERK Ot 257.2 09/01/2015 CHRISTIE NAYAK FEDERAL LAW CLERK Ot 414.00 09/01/2015 CHRISTIE NAYAK FEDERAL LAW CLERK Ot 433.10 09/01/2015 KAN WADDELL, WON A Ot 592.9 09/01/2015 KAN WADDELL, WON A Ot 592.0 09/01/2015 KAN WADDELL, WON A Ot 592.1 09/01/2015 KAN WADDELL, WON A Ot V72.63 09/01/2015 KAN WADDELL, WON A Ot V72.81 09/01/2015 KAN WADDELL, WON A Ot V74.8 09/01/2015 KAN WADDELL, WON A Ot V72.84 09/01/2015 KAN WADDELL, WON A Ot 592.0 09/01/2015 KAN WADDELL, WON A Ot 562.10 09/01/2015 KAN WADDELL, WON Temple Ot 592.0 09/01/2015 KAN WADDELL, WON Temple Ot 592.1 09/01/2015 KAN WADDELL, WON Temple Ot 592.0 09/01/2015 KAN WADDELL, WON Temple Ot V72.84 09/01/2015 KAN WADDELL, WON Temple Ot 592.0 09/01/2015 KAN WADDELL, WON Temple Ot V67.09 09/01/2015 NAEL CHRISTIE Knapp FEDERAL LAW CLERK Ot G45.9 09/01/2015 NAEL CHRISTIE Knapp FEDERAL LAW CLERK Ot H53.8 09/01/2015 JONH NAYAKHANIE Ra FEDERAL LAW CLERK Ot R03.0 10/02/2015 HANNAH WADDELL, JAYSHREE Waller Ot 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, LEFT ANKLE AND FOOT 10/04/2015 HANNAH WADDELL, JAYSHREE Waller Ot M10.072 01/23/2016 Ot 414.01 CORONARY ATHEROSCLEROSIS OF AUGUSTINE CORON 01/23/2016 Ot 424.0 MITRAL VALVE DISORDER 01/23/2016 Ot 429.3 CARDIOMEGALY 01/23/2016 Ot V45.81 AORTOCORONARY BYPASS 01/23/2016 Ot 272.4 HYPERLIPIDEMIA NEC/NOS 01/23/2016 Ot 401.9 HYPERTENSION NOS 01/23/2016 Ot 780.79 OTH MALAISE FATIGUE 01/23/2016 TULIO ENGEL FEDERAL LAW CLERK Ot 401.9 HYPERTENSION NOS 01/23/2016 TULIO ENGEL FEDERAL LAW CLERK Ot 414.01 CORONARY ATHEROSCLEROSIS OF A[place]UST[place] CORON 01/23/2016 KAN WADDELL, WON Maverick Ot 592.0 CALCULUS OF KIDNEY 01/23/2016 AIMEE WADDELL FACC, ALI FACP CCDS Ot 272.4 HYPERLIPIDEMIA NEC/NOS 01/23/2016 AIMEE WADDELL FACC, ALI FACP CCDS Ot 401.9 HYPERTENSION NOS 01/23/2016 AIMEE WADDELL FACC, ALI FACP CCDS Ot 414.00 CORON ATHEROSCLER NOS TYPE VESSEL, NATIV 01/23/2016 AIMEE WADDELL FACC, ALI FACP CCDS Ot 433.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 W O CEREBRAL IN 01/23/2016 AIMEE WADDELL FACC, ALI FACP CCDS Ot 780.79 OTH MALAISE FATIGUE 01/23/2016 AIMEE WADDELL FACC, ALI FACP CCDS Ot V45.89 POSTSURGICAL STATES NEC 01/23/2016 GINA COSTA MD Ot 784.2 SWELLING IN HEAD NECK 01/23/2016 GINA COSTA MD Ot V72.63 PRE-PROCEDURAL LABORATORY EXAMINATION 01/23/2016 GINA COSTA MD Ot V72.81 [id number] CARDIOVASCULAR 01/23/2016 GINA COSTA MD Ot V72.83 EXAM PRE-OPERATIVE NEC 01/23/2016 GINA COSTA MD Ot V72.84 EXAM PRE-OPERATIVE NOS 01/23/2016 GINA COSTA MD Ot V74.8 SCREEN-BACTERIAL DIS NEC 01/23/2016 CHARANJIT WALLER L FEDERAL LAW CLERK Ot 272.4 HYPERLIPIDEMIA NEC/NOS 01/23/2016 CHARANJIT WALLER L FEDERAL LAW CLERK Ot 401.9 HYPERTENSION NOS 01/23/2016 CHARANJIT WALLER L FEDERAL LAW CLERK Ot 414.00 CORON ATHEROSCLER NOS TYPE VESSEL, NATIV 01/23/2016 CHARANJIT WALLER L FEDERAL LAW CLERK Ot 425.4 PRIM CARDIOMYOPATHY NEC 01/23/2016 MELA WALLERHER L FEDERAL LAW CLERK Ot 447.9 ARTERIAL DISEASE NOS 01/23/2016 CHRISTIN CHARANJIT L FEDERAL LAW CLERK Ot V45.89 POSTSURGICAL STATES NEC 01/23/2016 CHRISTIE NAYAK FEDERAL LAW CLERK Ot 272.4 HYPERLIPIDEMIA NEC/NOS 01/23/2016 CHRISTIE NAYAK FEDERAL LAW CLERK Ot 274.9 GOUT NOS 01/23/2016 CHRISTIE NAYAK FEDERAL LAW CLERK Ot 401.9 HYPERTENSION NOS 01/23/2016 CHRISTIE NAYAK FEDERAL LAW CLERK Ot 257.2 TESTICULAR HYPOFUNC NEC 01/23/2016 CHRISTIE NAYAK FEDERAL LAW CLERK Ot 414.00 CORON ATHEROSCLER NOS TYPE VESSEL, NATIV 01/23/2016 CHRISTIE NAYAK FEDERAL LAW CLERK Ot 433.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 W O CEREBRAL IN 01/23/2016 KAN WADDELL, WON Temple Ot 592.9 URINARY CALCULUS NOS 01/23/2016 KAN WADDELL, WON A Ot 592.0 CALCULUS OF KIDNEY 01/23/2016 WON OMER MD Ot 592.1 CALCULUS OF URETER 01/23/2016 WON OMER MD Ot V72.63 PRE-PROCEDURAL LABORATORY EXAMINATION 01/23/2016 WON OMER MD Ot V72.81 [id number] CARDIOVASCULAR 01/23/2016 KAN WADDELL, WON Temple Ot V74.8 SCREEN-BACTERIAL DIS NEC 01/23/2016 KAN WADDELL, WON Temple Ot V72.84 EXAM PRE-OPERATIVE NOS 01/23/2016 KAN WADDELL, WON Temple Ot 592.0 CALCULUS OF KIDNEY 01/23/2016 KAN WADDELL, WON Temple Ot 562.10 DIVERTICULOSIS COLON (W/O MENT OF HEMORR 01/23/2016 KAN WADDELL, WON Temple Ot 592.0 CALCULUS OF KIDNEY 01/23/2016 KAN WADDELL, WON Temple Ot 592.1 CALCULUS OF URETER 01/23/2016 KAN WADDELL, WON Temple Ot 592.0 CALCULUS OF KIDNEY 01/23/2016 KAN WADDELL, WON Temple Ot V72.84 EXAM PRE-OPERATIVE NOS 01/23/2016 KAN WADDELL, WON Temple Ot 592.0 CALCULUS OF KIDNEY 01/23/2016 KAN WADDELL, WON Temple Ot V67.09 SURGERY FOLLOW-UP, OTHER SURGERY 01/23/2016 CHRISTIE NAYAK FEDERAL LAW CLERK Ot G45.9 TRANSIENT CEREBRAL ISCHEMIC ATTACK, UNSP 01/23/2016 CHRISTIE NAYAK FEDERAL LAW CLERK Ot H53.8 OTHER VISUAL DISTURBANCES 01/23/2016 CHRISTIE NAYAK FEDERAL LAW CLERK Ot R03.0 ELEVATED BLOOD-PRESSURE READING, W/O RADHA 02/10/2016 Ot 414.01 CORONARY ATHEROSCLEROSIS OF AUGUST[place] CORON 02/10/2016 Ot 424.0 MITRAL VALVE DISORDER 02/10/2016 Ot 429.3 CARDIOMEGALY 02/10/2016 Ot V45.81 AORTOCORONARY BYPASS 02/10/2016 Ot 272.4 HYPERLIPIDEMIA NEC/NOS 02/10/2016 Ot 401.9 HYPERTENSION NOS 02/10/2016 Ot 780.79 OTH MALAISE FATIGUE 02/10/2016 TULIO ENGEL FEDERAL LAW CLERK Ot 401.9 HYPERTENSION NOS 02/10/2016 TULIO ENGEL FEDERAL LAW CLERK Ot 414.01 CORONARY ATHEROSCLEROSIS OF AUGUSTINE CORON 02/10/2016 WON OMER MD Ot 592.0 CALCULUS OF KIDNEY 02/10/2016 AIMEE WADDELL FACC, ALI FACP CCDS Ot 272.4 HYPERLIPIDEMIA NEC/NOS 02/10/2016 AIMEE WADDELL FACC, ALI FACP CCDS Ot 401.9 HYPERTENSION NOS 02/10/2016 AIMEE WADDELL [facility], [place] FACP CCDS Ot 414.00 CORON ATHEROSCLER NOS TYPE VESSEL, NATIV 02/10/2016 AIMEE MENJIVAR, [place] FACP CCDS Ot 433.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 W O CEREBRAL IN 02/10/2016 AIMEE WADDELL FACC, ABRAHAM FACP CCDS Ot 780.79 OTH MALAISE FATIGUE 02/10/2016 AIMEE WADDELL FACC, ABRAHAM FACP CCDS Ot V45.89 POSTSURGICAL STATES NEC 02/10/2016 IGOR WADDELL, GINA Browne Ot 784.2 SWELLING IN HEAD NECK 02/10/2016 IGOR WADDELL, GINA Browne Ot V72.63 PRE-PROCEDURAL LABORATORY EXAMINATION 02/10/2016 GINA COSTA MD Ot V72.81 [id number] CARDIOVASCULAR 02/10/2016 GINA COSTA MD Ot V72.83 EXAM PRE-OPERATIVE NEC 02/10/2016 GINA COSTA MD Ot V72.84 EXAM PRE-OPERATIVE NOS 02/10/2016 IGOR WADDELL, GINA Browne Ot V74.8 SCREEN-BACTERIAL DIS NEC 02/10/2016 CHARANJIT WALLER L FEDERAL LAW CLERK Ot 272.4 HYPERLIPIDEMIA NEC/NOS 02/10/2016 CHRISTIN CHARANJIT L FEDERAL LAW CLERK Ot 401.9 HYPERTENSION NOS 02/10/2016 CHARANJIT WALLER L FEDERAL LAW CLERK Ot 414.00 CORON ATHEROSCLER NOS TYPE VESSEL, NATIV 02/10/2016 CHARANJIT WALLER L FEDERAL LAW CLERK Ot 425.4 PRIM CARDIOMYOPATHY NEC 02/10/2016 MELA WALLERHER L FEDERAL LAW CLERK Ot 447.9 ARTERIAL DISEASE NOS 02/10/2016 CHARANJIT WALLER L FEDERAL LAW CLERK Ot V45.89 POSTSURGICAL STATES NEC 02/10/2016 CHRISTIE NAYAK FEDERAL LAW CLERK Ot 272.4 HYPERLIPIDEMIA NEC/NOS 02/10/2016 CHRISTIE NAYAK FEDERAL LAW CLERK Ot 274.9 GOUT NOS 02/10/2016 CHRISTIE NAYAK FEDERAL LAW CLERK Ot 401.9 HYPERTENSION NOS 02/10/2016 CHRISTIE NAYAK FEDERAL LAW CLERK Ot 257.2 TESTICULAR HYPOFUNC NEC 02/10/2016 CHRISTIE NAYAK FEDERAL LAW CLERK Ot 414.00 CORON ATHEROSCLER NOS TYPE VESSEL, NATIV 02/10/2016 CHRISTIE NAYAK FEDERAL LAW CLERK Ot 433.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 W O CEREBRAL IN 02/10/2016 KAN WADDELL, WON Temple Ot 592.9 URINARY CALCULUS NOS 02/10/2016 KAN WADDELL, WON A Ot 592.0 CALCULUS OF KIDNEY 02/10/2016 KAN WADDELL, WON A Ot 592.1 CALCULUS OF URETER 02/10/2016 WON OMER MD Ot V72.63 PRE-PROCEDURAL LABORATORY EXAMINATION 02/10/2016 WON OMER MD Ot V72.81 [id number] CARDIOVASCULAR 02/10/2016 WON OMER MD Ot V74.8 SCREEN-BACTERIAL DIS NEC 02/10/2016 WON OMER MD Ot V72.84 EXAM PRE-OPERATIVE NOS 02/10/2016 WON OMER MD Ot 592.0 CALCULUS OF KIDNEY 02/10/2016 KAN WADDELL, WON Temple Ot 562.10 DIVERTICULOSIS COLON (W/O MENT OF HEMORR 02/10/2016 WON OMER MD Ot 592.0 CALCULUS OF KIDNEY 02/10/2016 WON OMER MD A Ot 592.1 CALCULUS OF URETER 02/10/2016 WON OMER MD A Ot 592.0 CALCULUS OF KIDNEY 02/10/2016 WON OMER MD Ot V72.84 EXAM PRE-OPERATIVE NOS 02/10/2016 KAN WADDELL, WON Temple Ot 592.0 CALCULUS OF KIDNEY 02/10/2016 KAN WADDELL, WON Temple Ot V67.09 SURGERY FOLLOW-UP, OTHER SURGERY 02/10/2016 CHRISTIE NAYAKP Ot G45.9 TRANSIENT CEREBRAL ISCHEMIC ATTACK, UNSP 02/10/2016 CHRISTIE NAYAK FEDERAL LAW CLERK Ot H53.8 OTHER VISUAL DISTURBANCES 02/10/2016 CHRISTIE NAYAK FEDERAL LAW CLERK Ot R03.0 ELEVATED BLOOD-PRESSURE READING, W/O RADHA 04/25/2016 CHRISTIE NAYAK FEDERAL LAW CLERK Ot I10 ESSENTIAL (PRIMARY) HYPERTENSION 04/25/2016 CHRISTIE NAYAK FEDERAL LAW CLERK Ot R05 COUGH 04/25/2016 CHRISTIE NAYAK FEDERAL LAW CLERK Ot R06.02 SHORTNESS OF BREATH 04/25/2016 CHRISTIE NAYAK FEDERAL LAW CLERK Ot R06.83 SNORING 04/25/2016 CHRISTIE NAYAK FEDERAL LAW CLERK Ot R73.01 IMPAIRED FASTING GLUCOSE 04/30/2016 CHRISTIE NAYAK FEDERAL LAW CLERK Ot I10 ESSENTIAL (PRIMARY) HYPERTENSION 04/30/2016 CHRISTIE NAYAK FEDERAL LAW CLERK Ot R05 COUGH 04/30/2016 CHRISTIE NAYAK FEDERAL LAW CLERK Ot R06.02 SHORTNESS OF BREATH 04/30/2016 CHRISTIE NAYAK FEDERAL LAW CLERK Ot R06.83 SNORING 04/30/2016 CHRISTIE NAYAK FEDERAL LAW CLERK Ot R73.01 IMPAIRED FASTING GLUCOSE 05/03/2016 CHRISTIE NAYAK FEDERAL LAW CLERK Ot I10 ESSENTIAL (PRIMARY) HYPERTENSION 05/03/2016 CHRISTIE NAYAK FEDERAL LAW CLERK Ot R05 COUGH 05/03/2016 CHRISTIE NAYAK FEDERAL LAW CLERK Ot R06.02 SHORTNESS OF BREATH 05/03/2016 NAYAKCHRISTIE FEDERAL LAW CLERK Ot R06.83 SNORING 05/03/2016 NAYAKCHRISTIE FEDERAL LAW CLERK Ot R73.01 IMPAIRED FASTING GLUCOSE 05/14/2016 AIMEE WADDELL FACC, [place] FACP CCDS Ot E78.4 OTHER HYPERLIPIDEMIA 05/14/2016 AIMEE WADDELL FACC, ALI FACP CCDS Ot I11.0 HYPERTENSIVE HEART DISEASE WITH HEART FA 05/14/2016 AIMEE WADDELL FACC, ALI FACP CCDS Ot I25.10 ATHSCL HEART DISEASE OF [place]UST[place] CORONARY 05/14/2016 AIMEE WADDELL FACC, ALI FACP CCDS Ot I51.7 CARDIOMEGALY 05/14/2016 AIMEE WADDELL FACC ALI FACP CCDS Ot R06.02 SHORTNESS OF BREATH 05/16/2016 AIMEE WADDELL FACC, [place] FACP CCDS Ot E78.4 OTHER HYPERLIPIDEMIA 05/16/2016 AIMEE WADDELL FACC, ALI FACP CCDS Ot I11.0 HYPERTENSIVE HEART DISEASE WITH HEART FA 05/16/2016 AIMEE WADDELL FACC, ALI FACP CCDS Ot I25.10 ATHSCL HEART DISEASE OF [place] CORONARY 05/16/2016 AIMEE WADDELL FACC, ALI FACP CCDS Ot I51.7 CARDIOMEGALY 05/16/2016 AIMEE WADDELL FACC ALI FACP CCDS Ot R06.02 SHORTNESS OF BREATH 05/22/2016 NAEL CHRISTIE M FEDERAL LAW CLERK Ot G47.10 HYPERSOMNIA, UNSPECIFIED 05/22/2016 CHRISTIE NAYAK FEDERAL LAW CLERK Ot R06.02 SHORTNESS OF BREATH 05/22/2016 CHRISTIE NAYAK FEDERAL LAW CLERK Ot R06.83 SNORING 05/22/2016 CHRISTIE NAYAK FEDERAL LAW CLERK Ot G47.10 HYPERSOMNIA, UNSPECIFIED 05/22/2016 CHRISTIE NAYAK FEDERAL LAW CLERK Ot R06.02 SHORTNESS OF BREATH 05/22/2016 CHRISTIE NAYAK FEDERAL LAW CLERK Ot R06.83 SNORING 05/22/2016 AIMEE WADDELL FACC, [place] FACP CCDS Ot E78.4 OTHER HYPERLIPIDEMIA 05/22/2016 AIMEE WADDELL FACC, ALI FACP CCDS Ot I10 ESSENTIAL (PRIMARY) HYPERTENSION 05/22/2016 AIMEE WADDELL FACC, ALI FACP CCDS Ot I25.10 ATHSCL HEART DISEASE OF [place] CORONARY 05/22/2016 AIMEE WADDELL FACC, ALI FACP CCDS Ot I42.0 DILATED CARDIOMYOPATHY 05/22/2016 AIMEE WADDELL FACC, ALI FACP CCDS Ot I50.23 ACUTE ON CHRONIC SYSTOLIC (CONGESTIVE) H 05/22/2016 AIMEE WADDELL FACC, [place] FACP CCDS Ot I51.7 CARDIOMEGALY 05/24/2016 AIMEE WADDELL FACC, ALI FACP CCDS Ot E78.4 OTHER HYPERLIPIDEMIA 05/24/2016 AIMEE WADDELL FACC, ALI FACP CCDS Ot I10 ESSENTIAL (PRIMARY) HYPERTENSION 05/24/2016 AIMEE WADDELL FACC, ALI FACP CCDS Ot I25.10 ATHSCL HEART DISEASE OF [place]UST[place] CORONARY 05/24/2016 ABRAHAM YU MD, FACC FACP CCDS Ot I42.9 CARDIOMYOPATHY, UNSPECIFIED 05/24/2016 ABRAHAM YU MD, FACC FACP CCDS Ot R06.02 SHORTNESS OF BREATH 05/24/2016 AIMEE WADDELL FACC ALI FACP CCDS Ot E78.4 OTHER HYPERLIPIDEMIA 05/24/2016 AIMEE WADDELL FACC, ALI FACP CCDS Ot I10 ESSENTIAL (PRIMARY) HYPERTENSION 05/24/2016 AIMEE WADDELL FACC, ALI FACP CCDS Ot I25.10 ATHSCL HEART DISEASE OF [place]UST[place] CORONARY 05/24/2016 AIMEE WADDELL FACC, ALI FACP CCDS Ot I42.9 CARDIOMYOPATHY, UNSPECIFIED 05/24/2016 AIMEE WADDELL FACC, ALI FACP CCDS Ot R06.02 SHORTNESS OF BREATH 05/24/2016 AIMEE WADDELL FACC, ALI FACP CCDS Ot E66.9 OBESITY, UNSPECIFIED 05/24/2016 AIMEE WADDELL FACC, ALI FACP CCDS Ot E78.5 HYPERLIPIDEMIA, UNSPECIFIED 05/24/2016 AIMEE WADDELL FACC, ALI FACP CCDS Ot I10 ESSENTIAL (PRIMARY) HYPERTENSION 05/24/2016 AIMEE WADDELL FACC, ALI FACP CCDS Ot I25.10 ATHSCL HEART DISEASE OF [place]UST[place] CORONARY 05/24/2016 AIMEE WADDELL FACC, [place]RA[place] FACP CCDS Ot I42.0 DILATED CARDIOMYOPATHY 05/24/2016 AIMEE WADDELL FACC, ALI FACP CCDS Ot I44.7 LEFT BUNDLE-BRANCH BLOCK, UNSPECIFIED 05/24/2016 AIMEE WADDELL FACC, ALI FACP CCDS Ot I50.42 CHRONIC COMBINED SYSTOLIC AND DIASTOLIC 05/24/2016 AIMEE WADDELL FACC, ALI FACP CCDS Ot I71.2 THORACIC AORTIC ANEURYSM, WITHOUT RUPTUR 05/24/2016 AIMEE WADDELL FACC, ALI FACP CCDS Ot R53.82 CHRONIC FATIGUE, UNSPECIFIED 05/24/2016 AIMEE WADDELL FACC, ALI FACP CCDS Ot R73.09 OTHER ABNORMAL GLUCOSE 05/24/2016 AIMEE WADDELL FACC, ALI FACP CCDS Ot Z68.33 BODY MASS INDEX (BMI) 33.0-33.9, ADULT 05/24/2016 AIMEE WADDELL FACC, ALI FACP CCDS Ot Z79.899 OTHER PENITENTIARY (CURRENT) DRUG THERAPY 05/24/2016 AIMEE WADDELL FACC, ALI FACP CCDS Ot Z86.73 PRSNL HX OF TIA (TIA), AND CEREB INFRC W 05/24/2016 AIMEE WADDELL FACC, ALI FACP CCDS Ot Z95.1 PRESENCE OF AORTOCORONARY BYPASS GRAFT 05/25/2016 AIMEE WADDELL FACC, ALI FACP CCDS Ot E78.4 OTHER HYPERLIPIDEMIA 05/25/2016 AIMEE WADDELL FACC, ALI FACP CCDS Ot I11.0 HYPERTENSIVE HEART DISEASE WITH HEART FA 05/25/2016 AIMEE WADDELL FACC, ALI FACP CCDS Ot I25.10 ATHSCL HEART DISEASE OF [place] CORONARY 05/25/2016 AIMEE WADDELL FACC, ALI FACP CCDS Ot I51.7 CARDIOMEGALY 05/25/2016 AIMEE WADDELL FACC, ALI FACP CCDS Ot R06.02 SHORTNESS OF BREATH 05/27/2016 NAELCHRISTIE FEDERAL LAW CLERK Ot G47.10 HYPERSOMNIA, UNSPECIFIED 05/27/2016 NAELCHRISTIE FEDERAL LAW CLERK Ot R06.02 SHORTNESS OF BREATH 05/27/2016 NAYAKCHRISTIE FEDERAL LAW CLERK Ot R06.83 SNORING 05/27/2016 AIMEE WADDELL FACC, ALI FACP CCDS Ot E78.4 OTHER HYPERLIPIDEMIA 05/27/2016 AIMEE WADDELL FACC, ALI FACP CCDS Ot I10 ESSENTIAL (PRIMARY) HYPERTENSION 05/27/2016 AIMEE WADDELL FACC, ALI FACP CCDS Ot I25.10 ATHSCL HEART DISEASE OF [place] CORONARY 05/27/2016 AIMEE WADDELL FACC, ALI FACP CCDS Ot I42.0 DILATED CARDIOMYOPATHY 05/27/2016 AIMEE WADDELL FACC, ALI FACP CCDS Ot I50.23 ACUTE ON CHRONIC SYSTOLIC (CONGESTIVE) H 05/27/2016 AIMEE WADDELL FACC, ALI FACP CCDS Ot I51.7 CARDIOMEGALY 06/06/2016 IAMEE WADDELL FACC, ALI FACP CCDS Ot E78.4 OTHER HYPERLIPIDEMIA 06/06/2016 AIMEE WADDELL FACC, ALI FACP CCDS Ot I10 ESSENTIAL (PRIMARY) HYPERTENSION 06/06/2016 AIMEE WADDELL FACC, ALI FACP CCDS Ot I25.10 ATHSCL HEART DISEASE OF [place] CORONARY 06/06/2016 AIMEE WADDELL FACC, ALI FACP CCDS Ot I42.9 CARDIOMYOPATHY, UNSPECIFIED 06/06/2016 AIMEE WADDELL FACC, ALI FACP CCDS Ot R06.02 SHORTNESS OF BREATH 06/06/2016 AIMEE WADDELL FACC, ALI FACP CCDS Ot E78.4 OTHER HYPERLIPIDEMIA 06/06/2016 AIMEE WADDELL FACC, ALI FACP CCDS Ot I10 ESSENTIAL (PRIMARY) HYPERTENSION 06/06/2016 AIMEE WADDELL FACC, ALI FACP CCDS Ot I25.10 ATHSCL HEART DISEASE OF [place] CORONARY 06/06/2016 AIMEE WADDELL FACC, ALI FACP CCDS Ot I42.0 DILATED CARDIOMYOPATHY 06/06/2016 AIMEE WADDELL FACC, ALI FACP CCDS Ot I50.23 ACUTE ON CHRONIC SYSTOLIC (CONGESTIVE) H 06/06/2016 AIMEE WADDELL FACC, ALI FACP CCDS Ot I51.7 CARDIOMEGALY 07/03/2016 AIMEE WADDELL FACC, ALI FACP CCDS Ot E66.9 OBESITY, UNSPECIFIED 07/03/2016 AIMEE WADDELL FACC, ALI FACP CCDS Ot E78.5 HYPERLIPIDEMIA, UNSPECIFIED 07/03/2016 AIMEE WADDELL FACC, ALI FACP CCDS Ot I10 ESSENTIAL (PRIMARY) HYPERTENSION 07/03/2016 AIMEE WADDELL FACC, ALI FACP CCDS Ot I25.10 ATHSCL HEART DISEASE OF [place] CORONARY 07/03/2016 AIMEE WADDELL FACC, ALI FACP CCDS Ot I42.0 DILATED CARDIOMYOPATHY 07/03/2016 AIMEE WADDELL FACC, ALI FACP CCDS Ot I44.7 LEFT BUNDLE-BRANCH BLOCK, UNSPECIFIED 07/03/2016 AIMEE WADDELL FACC, ALI FACP CCDS Ot I50.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 COMBINED SYSTOLIC AND DIASTOLIC 07/03/2016 AIMEE WADDELL FACC, ALI FACP CCDS Ot I71.2 THORACIC AORTIC ANEURYSM, WITHOUT RUPTUR 07/03/2016 AIMEE WADDELL FACC, ALI FACP CCDS Ot R53.82 CHRONIC FATIGUE, UNSPECIFIED 07/03/2016 AIMEE WADDELL FACC, ALI FACP CCDS Ot R73.09 OTHER ABNORMAL GLUCOSE 07/03/2016 AIMEE WADDELL FACC, ALI FACP CCDS Ot Z68.33 BODY MASS INDEX (BMI) 33.0-33.9, ADULT 07/03/2016 AIMEE WADDELL FACC, ALI FACP CCDS Ot Z79.899 OTHER PENITENTIARY (CURRENT) DRUG THERAPY 07/03/2016 AIMEE WADDELL FACC, ALI FACP CCDS Ot Z86.73 PRSNL HX OF TIA (TIA), AND CEREB INFRC W 07/03/2016 AIMEE WADDELL FACC, ALI FACP CCDS Ot Z95.1 PRESENCE OF AORTOCORONARY BYPASS GRAFT 10/13/2016 Ot 414.01 CORONARY ATHEROSCLEROSIS OF [place]UST[place] CORON 10/13/2016 Ot 424.0 MITRAL VALVE DISORDER 10/13/2016 Ot 429.3 CARDIOMEGALY 10/13/2016 Ot V45.81 AORTOCORONARY BYPASS 10/13/2016 Ot 272.4 HYPERLIPIDEMIA NEC/NOS 10/13/2016 Ot 401.9 HYPERTENSION NOS 10/13/2016 Ot 780.79 OTH MALAISE FATIGUE 10/13/2016 TULIO ENGEL Ra FEDERAL LAW CLERK Ot 401.9 HYPERTENSION NOS 10/13/2016 TULIO ENGEL FEDERAL LAW CLERK Ot 414.01 CORONARY ATHEROSCLEROSIS OF [place]UST[place] CORON 10/13/2016 KAN WADDELL, WON Temple Ot 592.0 CALCULUS OF KIDNEY 10/13/2016 AIMEE WADDELL FAC, ALI FACP CCDS Ot 272.4 HYPERLIPIDEMIA NEC/NOS 10/13/2016 AIMEE WADDELL FACC, ALI FACP CCDS Ot 401.9 HYPERTENSION NOS 10/13/2016 AIMEE WADDELL FACC, ALI FACP CCDS Ot 414.00 CORON ATHEROSCLER NOS TYPE VESSEL, NATIV 10/13/2016 AIMEE WADDELL FACC, ALI FACP CCDS Ot 433.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 W O CEREBRAL IN 10/13/2016 AIMEE WADDELL FACC, ALI FACP CCDS Ot 780.79 OTH MALAISE FATIGUE 10/13/2016 AIMEE WADDELL FACC, ALI FACP CCDS Ot V45.89 POSTSURGICAL STATES NEC 10/13/2016 IGOR WADDELL, GINA P Ot 784.2 SWELLING IN HEAD NECK 10/13/2016 IGOR WADDELL, GINA P Ot V72.63 PRE-PROCEDURAL LABORATORY EXAMINATION 10/13/2016 IGOR WADDELL, GINA P Ot V72.81 [id number] CARDIOVASCULAR 10/13/2016 IGOR WADDELL, GINA P Ot V72.83 EXAM PRE-OPERATIVE NEC 10/13/2016 IGOR WADDELL, GINA P Ot V72.84 EXAM PRE-OPERATIVE NOS 10/13/2016 IGOR WADDELL, GINA P Ot V74.8 SCREEN-BACTERIAL DIS NEC 10/13/2016 CHARANJIT WALLER L FEDERAL LAW CLERK Ot 272.4 HYPERLIPIDEMIA NEC/NOS 10/13/2016 CHARANJIT WALLER L FEDERAL LAW CLERK Ot 401.9 HYPERTENSION NOS 10/13/2016 CHARANJIT WALLER L FEDERAL LAW CLERK Ot 414.00 CORON ATHEROSCLER NOS TYPE VESSEL, NATIV 10/13/2016 CHARANJIT WALLER L FEDERAL LAW CLERK Ot 425.4 PRIM CARDIOMYOPATHY NEC 10/13/2016 CHARANJIT WALLER L FEDERAL LAW CLERK Ot 447.9 ARTERIAL DISEASE NOS 10/13/2016 MELA WALLERHER L FEDERAL LAW CLERK Ot V45.89 POSTSURGICAL STATES NEC 10/13/2016 CHRISTIE NAYAK FEDERAL LAW CLERK Ot 272.4 HYPERLIPIDEMIA NEC/NOS 10/13/2016 CHRISTIE NAYAK FEDERAL LAW CLERK Ot 274.9 GOUT NOS 10/13/2016 CHRISTIE NAYAK FEDERAL LAW CLERK Ot 401.9 HYPERTENSION NOS 10/13/2016 CHRISTIE NAYAK FEDERAL LAW CLERK Ot 257.2 TESTICULAR HYPOFUNC NEC 10/13/2016 CHRISTIE NAYAK FEDERAL LAW CLERK Ot 414.00 CORON ATHEROSCLER NOS TYPE VESSEL, NATIV 10/13/2016 CHRISTIE NAYAK FEDERAL LAW CLERK Ot 433.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 W O CEREBRAL IN 10/13/2016 WON OMER MD Ot 592.9 URINARY CALCULUS NOS 10/13/2016 WON OMER MD Ot 592.0 CALCULUS OF KIDNEY 10/13/2016 WON OMER MD Ot 592.1 CALCULUS OF URETER 10/13/2016 WON OMER MD Ot V72.63 PRE-PROCEDURAL LABORATORY EXAMINATION 10/13/2016 WON OMER MD Ot V72.81 [id number] CARDIOVASCULAR 10/13/2016 WON OMER MD Ot V74.8 SCREEN-BACTERIAL DIS NEC 10/13/2016 WON OMER MD Ot V72.84 EXAM PRE-OPERATIVE NOS 10/13/2016 WON OMER MD Ot 592.0 CALCULUS OF KIDNEY 10/13/2016 WON OMER MD Ot 562.10 DIVERTICULOSIS COLON (W/O MENT OF HEMORR 10/13/2016 WON OMER MD Ot 592.0 CALCULUS OF KIDNEY 10/13/2016 WON OMER MD Ot 592.1 CALCULUS OF URETER 10/13/2016 WON OMER MD Ot 592.0 CALCULUS OF KIDNEY 10/13/2016 WON OMER MD Ot V72.84 EXAM PRE-OPERATIVE NOS 10/13/2016 WON OMER MD Ot 592.0 CALCULUS OF KIDNEY 10/13/2016 WON OMER MD Ot V67.09 SURGERY FOLLOW-UP, OTHER SURGERY 10/13/2016 CHRISTIE NAYAK FEDERAL LAW CLERK Ot G45.9 TRANSIENT CEREBRAL ISCHEMIC ATTACK, UNSP 10/13/2016 CHRISTIE NAYAK FEDERAL LAW CLERK Ot H53.8 OTHER VISUAL DISTURBANCES 10/13/2016 CHRISTIE NAYAK FEDERAL LAW CLERK Ot R03.0 ELEVATED BLOOD-PRESSURE READING, W/O RADHA 10/13/2016 CHRISTIE NAYAK FEDERAL LAW CLERK Ot I10 ESSENTIAL (PRIMARY) HYPERTENSION 10/13/2016 CHRISTIE NAYAK FEDERAL LAW CLERK Ot R05 COUGH 10/13/2016 CHRISTIE NAYAK FEDERAL LAW CLERK Ot R06.02 SHORTNESS OF BREATH 10/13/2016 CHRISTIE NAYAK FEDERAL LAW CLERK Ot R06.83 SNORING 10/13/2016 CHRISTIE NAYAK FEDERAL LAW CLERK Ot R73.01 IMPAIRED FASTING GLUCOSE 10/13/2016 AIMEE WADDELL FACC, ALI FACP CCDS Ot E78.4 OTHER HYPERLIPIDEMIA 10/13/2016 AIMEE WADDELL FACC, ALI FACP CCDS Ot I11.0 HYPERTENSIVE HEART DISEASE WITH HEART FA 10/13/2016 AIMEE WADDELL FACC, ALI FACP CCDS Ot I25.10 ATHSCL HEART DISEASE OF [place] CORONARY 10/13/2016 AIMEE WADDELL FACC, ALI FACP CCDS Ot I51.7 CARDIOMEGALY 10/13/2016 AIMEE WADDELL FACC, ALI FACP CCDS Ot R06.02 SHORTNESS OF BREATH 10/13/2016 AIMEE WADDELL FACC, ALI FACP CCDS Ot E78.4 OTHER HYPERLIPIDEMIA 10/13/2016 AIMEE WADDELL FACC, ALI FACP CCDS Ot I10 ESSENTIAL (PRIMARY) HYPERTENSION 10/13/2016 AIMEE WADDELL FACC, ALI FACP CCDS Ot I25.10 ATHSCL HEART DISEASE OF [place] CORONARY 10/13/2016 AIMEE WADDELL FACC, ALI FACP CCDS Ot I42.9 CARDIOMYOPATHY, UNSPECIFIED 10/13/2016 AIMEE WADDELL FACC, ALI FACP CCDS Ot R06.02 SHORTNESS OF BREATH 10/13/2016 AIMEE WADDELL FACC, ALI FACP CCDS Ot E78.4 OTHER HYPERLIPIDEMIA 10/13/2016 AIMEE WADDELL FACC, ALI FACP CCDS Ot I11.0 HYPERTENSIVE HEART DISEASE WITH HEART FA 10/13/2016 AIMEE WADDELL FACC, ALI FACP CCDS Ot I25.10 ATHSCL HEART DISEASE OF [place] CORONARY 10/13/2016 AIMEE WADDELL FACC, ALI FACP CCDS Ot I51.7 CARDIOMEGALY 10/13/2016 AIMEE WADDELL FACC, ALI FACP CCDS Ot R06.02 SHORTNESS OF BREATH 10/13/2016 AIMEE WADDELL FACC, ABRAHAM FACP CCDS Ot E78.4 OTHER HYPERLIPIDEMIA 10/13/2016 AIMEE WADDELL FACC, ALI FACP CCDS Ot I10 ESSENTIAL (PRIMARY) HYPERTENSION 10/13/2016 AIMEE WADDELL FACC, ALI FACP CCDS Ot I25.10 ATHSCL HEART DISEASE OF [place] CORONARY 10/13/2016 AIMEE WADDELL FACC, ALI FACP CCDS Ot I42.0 DILATED CARDIOMYOPATHY 10/13/2016 AIMEE AWDDELL FACC, ALI FACP CCDS Ot I50.23 ACUTE ON CHRONIC SYSTOLIC (CONGESTIVE) H 10/13/2016 AIMEE WADDELL FACC, ALI FACP CCDS Ot I51.7 CARDIOMEGALY 03/11/2017 Ot 414.01 CORONARY ATHEROSCLEROSIS OF [place]UST[place] CORON 03/11/2017 Ot 424.0 MITRAL VALVE DISORDER 03/11/2017 Ot 429.3 CARDIOMEGALY 03/11/2017 Ot V45.81 AORTOCORONARY BYPASS 03/11/2017 Ot 272.4 HYPERLIPIDEMIA NEC/NOS 03/11/2017 Ot 401.9 HYPERTENSION NOS 03/11/2017 Ot 780.79 OTH MALAISE FATIGUE 03/11/2017 TULIO ENGEL FEDERAL LAW CLERK Ot 401.9 HYPERTENSION NOS 03/11/2017 TULIO ENGEL FEDERAL LAW CLERK Ot 414.01 CORONARY ATHEROSCLEROSIS OF [place]UST[place] CORON 03/11/2017 KAN WADDELL, WON Temple Ot 592.0 CALCULUS OF KIDNEY 03/11/2017 AIMEE WADDELL FACC, ALI FACP CCDS Ot 272.4 HYPERLIPIDEMIA NEC/NOS 03/11/2017 AIMEE WADDELL FACC, ALI FACP CCDS Ot 401.9 HYPERTENSION NOS 03/11/2017 AIMEE WADDELL FACC, ALI FACP CCDS Ot 414.00 CORON ATHEROSCLER NOS TYPE VESSEL, NATIV 03/11/2017 AIMEE WADDELL FACC, ALI FACP CCDS Ot 433.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 W O CEREBRAL IN 03/11/2017 AIMEE WADDELL FACC, ALI FACP CCDS Ot 780.79 OTH MALAISE FATIGUE 03/11/2017 AIMEE WADDELL FACC, ALI FACP CCDS Ot V45.89 POSTSURGICAL STATES NEC 03/11/2017 GINA COSTA MD Ot 784.2 SWELLING IN HEAD NECK 03/11/2017 GINA COSTA MD Ot V72.63 PRE-PROCEDURAL LABORATORY EXAMINATION 03/11/2017 GINA COSTA MD Ot V72.81 [id number] CARDIOVASCULAR 03/11/2017 GINA COSTA MD Ot V72.83 EXAM PRE-OPERATIVE NEC 03/11/2017 GINA COSTA MD Ot V72.84 EXAM PRE-OPERATIVE NOS 03/11/2017 GINA COSTA MD Ot V74.8 SCREEN-BACTERIAL DIS NEC 03/11/2017 BAIMACHARANJIT L FEDERAL LAW CLERK Ot 272.4 HYPERLIPIDEMIA NEC/NOS 03/11/2017 BAIMA, CHARANJIT L FEDERAL LAW CLERK Ot 401.9 HYPERTENSION NOS 03/11/2017 BAIMA, CHARANJIT L FEDERAL LAW CLERK Ot 414.00 CORON ATHEROSCLER NOS TYPE VESSEL, NATIV 03/11/2017 BAIMA CHARANJIT L FEDERAL LAW CLERK Ot 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 W O CEREBRAL IN 03/11/2017 WON OMER MD Ot 592.9 URINARY CALCULUS NOS 03/11/2017 WON OMER MD Ot 592.0 CALCULUS OF KIDNEY 03/11/2017 WON OMER MD Ot 592.1 CALCULUS OF URETER 03/11/2017 WON OMER MD Ot V72.63 PRE-PROCEDURAL LABORATORY EXAMINATION 03/11/2017 WON OMER MD Ot V72.81 [id number] CARDIOVASCULAR 03/11/2017 WON OMER MD Ot V74.8 SCREEN-BACTERIAL DIS NEC 03/11/2017 WON OMER MD Ot V72.84 EXAM PRE-OPERATIVE NOS 03/11/2017 WON OMER MD Ot 592.0 CALCULUS OF KIDNEY 03/11/2017 KAN WADDELL, WON Temple Ot 562.10 DIVERTICULOSIS COLON (W/O MENT OF HEMORR 03/11/2017 KAN WADDELL, WON [place] Ot 592.0 CALCULUS OF KIDNEY 03/11/2017 WON OMER MD Ot 592.1 CALCULUS OF URETER 03/11/2017 WON OMER MD Ot 592.0 CALCULUS OF KIDNEY 03/11/2017 WON OMER MD Ot V72.84 EXAM PRE-OPERATIVE NOS 03/11/2017 KAN WADDELL, WON [place] Ot 592.0 CALCULUS OF KIDNEY 03/11/2017 KAN WADDELL, WON [place] Ot V67.09 SURGERY FOLLOW-UP, OTHER SURGERY 03/11/2017 CHRISTIE NAYAK FEDERAL LAW CLERK Ot G45.9 TRANSIENT CEREBRAL ISCHEMIC ATTACK, UNSP 03/11/2017 CHRISTIE NAYAK FEDERAL LAW CLERK Ot H53.8 OTHER VISUAL DISTURBANCES 03/11/2017 CHRISTIE NAYAK FEDERAL LAW CLERK Ot R03.0 ELEVATED BLOOD-PRESSURE READING, W/O RADHA 03/11/2017 CHRISTIE NAYAK FEDERAL LAW CLERK Ot I10 ESSENTIAL (PRIMARY) HYPERTENSION 03/11/2017 CHRISTIE NAYAK FEDERAL LAW CLERK Ot R05 COUGH 03/11/2017 CHRISTIE NAYAK FEDERAL LAW CLERK Ot R06.02 SHORTNESS OF BREATH 03/11/2017 CHRISTIE NAYAK FEDERAL LAW CLERK Ot R06.83 SNORING 03/11/2017 CHRISTIE NAYAK FEDERAL LAW CLERK Ot R73.01 IMPAIRED FASTING GLUCOSE 03/11/2017 AIMEE WADDELL FACC, ABRAHAM FACP CCDS Ot E78.4 OTHER HYPERLIPIDEMIA 03/11/2017 AIMEE WADDELL FACC, ABRAHAM FACP CCDS Ot I11.0 HYPERTENSIVE HEART DISEASE WITH HEART FA 03/11/2017 AIMEE WADDELL FACC, ABRAHAM FACP CCDS Ot I25.10 ATHSCL HEART DISEASE OF [place] CORONARY 03/11/2017 AIMEE WADDELL FACC, ABRAHAM FACP CCDS Ot I51.7 CARDIOMEGALY 03/11/2017 AIMEE WADDELL FACC, ABRAHAM FACP CCDS Ot R06.02 SHORTNESS OF BREATH 03/11/2017 AIMEE WADDELL FACC, ABRAHAM FACP CCDS Ot E78.4 OTHER HYPERLIPIDEMIA 03/11/2017 AIMEE WADDELL FACC, ALI FACP CCDS Ot I10 ESSENTIAL (PRIMARY) HYPERTENSION 03/11/2017 AIMEE WADDELL FACC, ALI FACP CCDS Ot I25.10 ATHSCL HEART DISEASE OF [place] CORONARY 03/11/2017 AIMEE WADDELL FACC, ALI FACP CCDS Ot I42.9 CARDIOMYOPATHY, UNSPECIFIED 03/11/2017 AIMEE WADDELL FACC, ALI FACP CCDS Ot R06.02 SHORTNESS OF BREATH 03/11/2017 AIMEE WADDELL FACC, ALI FACP CCDS Ot E78.4 OTHER HYPERLIPIDEMIA 03/11/2017 AIMEE WADDELL FACC, ALI FACP CCDS Ot I11.0 HYPERTENSIVE HEART DISEASE WITH HEART FA 03/11/2017 AIMEE WADDELL FACC, ALI FACP CCDS Ot I25.10 ATHSCL HEART DISEASE OF [place] CORONARY 03/11/2017 AIMEE WADDELL FACC, ALI FACP CCDS Ot I51.7 CARDIOMEGALY 03/11/2017 AIMEE WADDELL FACC, ALI FACP CCDS Ot R06.02 SHORTNESS OF BREATH 03/11/2017 AIMEE WADDELL FACC, ALI FACP CCDS Ot E78.4 OTHER HYPERLIPIDEMIA 03/11/2017 AIMEE WADDELL FACC, ALI FACP CCDS Ot I10 ESSENTIAL (PRIMARY) HYPERTENSION 03/11/2017 AIMEE WADDELL FACC, ALI FACP CCDS Ot I25.10 ATHSCL HEART DISEASE OF [place] CORONARY 03/11/2017 AIMEE WADDELL FACC, ALI FACP CCDS Ot I42.0 DILATED CARDIOMYOPATHY 03/11/2017 AIMEE WADDELL FACC, ALI FACP CCDS Ot I50.23 ACUTE ON CHRONIC SYSTOLIC (CONGESTIVE) H 03/11/2017 AIMEE WADDELL FACC, ALI FACP CCDS Ot I51.7 CARDIOMEGALY 03/11/2017 SHIVA DECKER APRN Ot E78.00 PURE HYPERCHOLESTEROLEMIA, UNSPECIFIED 03/11/2017 SHIVA DECKER APRN Ot F41.9 ANXIETY DISORDER, UNSPECIFIED 03/11/2017 SHIVA DECKER FISHERIES MANAGEMENT BIOLOGIST Ot I10 ESSENTIAL (PRIMARY) HYPERTENSION 03/11/2017 SHIVA DECKER FISHERIES MANAGEMENT BIOLOGIST Ot I25.10 ATHSCL HEART DISEASE OF [place] CORONARY 03/11/2017 SHIVA DECKER APRN Ot I73.9 PERIPHERAL VASCULAR DISEASE, UNSPECIFIED 03/11/2017 SHIVA DECKER APRN Ot J45.909 UNSPECIFIED ASTHMA, UNCOMPLICATED 03/11/2017 SHIVA DECKER APRN Ot K21.9 GASTRO-ESOPHAGEAL REFLUX DISEASE WITHOUT 03/11/2017 SHIVA DECKER APRN Ot M10.9 GOUT, UNSPECIFIED 03/11/2017 SHIVA DECKER APRN Ot M79.671 PAIN IN RIGHT FOOT 03/11/2017 SHIVA DECKER APRN Ot Z79.82 STAVE CUTTER (CURRENT) USE OF ASPIRIN 03/11/2017 SHIVA DECKER APRN Ot Z80.1 FAMILY HISTORY OF MALIG NEOPLASM OF TRAC 03/11/2017 SHIVA DECKER APRN Ot Z86.73 PRSNL HX OF TIA (TIA), AND CEREB INFRC W 03/11/2017 SHIVA DECKER APRN Ot Z87.19 PERSONAL HISTORY OF OTHER DISEASES OF TH 03/11/2017 SHIVA DECKER APRN Ot Z87.442 PERSONAL HISTORY OF URINARY CALCULI 03/11/2017 SHIVA DECKER APRN Ot Z95.0 PRESENCE OF CARDIAC PACEMAKER 03/11/2017 SHIVA DECKER APRN Ot Z95.1 PRESENCE OF AORTOCORONARY BYPASS GRAFT 03/13/2017 SHIVA DECKER APRN Ot E78.00 PURE HYPERCHOLESTEROLEMIA, UNSPECIFIED 03/13/2017 SHIVA DECKER APRN Ot F41.9 ANXIETY DISORDER, UNSPECIFIED 03/13/2017 SHIVA DECKER APRN Ot I10 ESSENTIAL (PRIMARY) HYPERTENSION 03/13/2017 SHIVA DECKER APRN Ot I25.10 ATHSCL HEART DISEASE OF [place] CORONARY 03/13/2017 SHIVA DECKER APRN Ot I73.9 PERIPHERAL VASCULAR DISEASE, UNSPECIFIED 03/13/2017 SHIVA DECKER APRN Ot J45.909 UNSPECIFIED ASTHMA, UNCOMPLICATED 03/13/2017 SHIVA DECKER APRN Ot K21.9 GASTRO-ESOPHAGEAL REFLUX DISEASE WITHOUT 03/13/2017 SHIVA DECKER APRN Ot M10.9 GOUT, UNSPECIFIED 03/13/2017 SHIVA DECKER APRN Ot M79.671 PAIN IN RIGHT FOOT 03/13/2017 SHIVA DECKER APRN Ot Z79.82 PENITENTIARY (CURRENT) USE OF ASPIRIN 03/13/2017 DECKER, PETER J FISHERIES MANAGEMENT BIOLOGIST Ot Z80.1 FAMILY HISTORY OF MALIG NEOPLASM OF [place] 03/13/2017 SHIVA DECKER APRN Ot Z86.73 PRSNL HX OF TIA (TIA), AND CEREB INFRC W 03/13/2017 SHIVA DECKER APRN Ot Z87.19 PERSONAL HISTORY OF OTHER DISEASES OF TH 03/13/2017 SHIVA DECKER APRN Ot Z87.442 PERSONAL HISTORY OF URINARY CALCULI 03/13/2017 SHIVA DECKER APRN Ot Z95.0 PRESENCE OF CARDIAC PACEMAKER 03/13/2017 SHIVA DECKER APRN Ot Z95.1 PRESENCE OF AORTOCORONARY BYPASS GRAFT 04/25/2017 RYAN HAYS FISHERIES MANAGEMENT BIOLOGIST Ot N64.9 DISORDER OF BREAST, UNSPECIFIED Procedures There is no data. Results Test Result Range Complete blood count (CBC) with automated white blood cell (WBC) differential - 04/24/16 10:45 Blood leukocytes automated count (number/volume) 9.9 10*3/uL 4.3-11.0 Blood erythrocytes automated count (number/volume) 5.23 10*6/uL 4.35-5.85 Venous blood hemoglobin measurement (mass/volume) 16.5 g/dL 13.3-17.7 Blood hematocrit (volume fraction) 47 % 40-54 Automated erythrocyte mean corpuscular volume 90 [foz_us] 80-99 Automated erythrocyte mean corpuscular hemoglobin (mass per erythrocyte) 32 pg 25-34 Automated erythrocyte mean corpuscular hemoglobin concentration measurement ( mass/volume) 35 g/dL 32-36 Automated erythrocyte distribution width ratio 14.8 % 10.0-14.5 Automated blood platelet count (count/volume) 190 10*3/uL 130-400 Automated blood platelet mean volume measurement 10.3 [foz_us] 7.4-10.4 Automated blood neutrophils/100 leukocytes 65 % 42-75 Automated blood lymphocytes/100 leukocytes 26 % 12-44 Blood monocytes/100 leukocytes 7 % 0-12 Automated blood eosinophils/100 leukocytes 2 % 0-10 Automated blood basophils/100 leukocytes 1 % 0-10 Blood neutrophils automated count (number/volume) 6.4 10*3 1.8-7.8 Blood lymphocytes automated count (number/volume) 2.6 10*3 1.0-4.0 Blood monocytes automated count (number/volume) 0.6 10*3 0.0-1.0 Automated eosinophil count 0.2 10*3/uL 0.0-0.3 Automated blood basophil count (count/volume) 0.1 10*3/uL 0.0-0.1 Comprehensive metabolic panel - 04/24/16 10:45 Serum or plasma sodium measurement (moles/volume) 141 mmol/L 135-145 Serum or plasma potassium measurement (moles/volume) 4.2 mmol/L 3.6-5.0 Serum or plasma chloride measurement (moles/volume) 110 mmol/L 98-107 Carbon dioxide 21 mmol/L 21-32 Serum or plasma anion gap determination (moles/volume) 10 mmol/L 5-14 Serum or plasma urea nitrogen measurement (mass/volume) 12 mg/dL 7-18 Serum or plasma creatinine measurement (mass/volume) 1.05 mg/dL 0.60-1.30 Serum or plasma urea nitrogen/creatinine mass ratio 11 NRG Serum or plasma creatinine measurement with calculation of estimated glomerular filtration rate > NRG Serum or plasma glucose measurement (mass/volume) 104 mg/dL 70-105 Serum or plasma calcium measurement (mass/volume) 9.3 mg/dL 8.5-10.1 Serum or plasma total bilirubin measurement (mass/volume) 1.2 mg/dL 0.1-1.0 Serum or plasma alkaline phosphatase measurement (enzymatic activity/volume) 81 U/L 40-136 Serum or plasma aspartate aminotransferase measurement (enzymatic activity/ volume) 16 U/L 5-34 Serum or plasma alanine aminotransferase measurement (enzymatic activity/volume ) 22 U/L 0-55 Serum or plasma protein measurement (mass/volume) 7.1 g/dL 6.4-8.2 Serum or plasma albumin measurement (mass/volume) 4.4 g/dL 3.2-4.5 Lipid 1996 panel - 04/24/16 10:45 Serum or plasma triglyceride measurement (mass/volume) 110 mg/dL <150 Serum or plasma cholesterol measurement (mass/volume) 153 mg/dL < 200 Serum or plasma cholesterol in HDL measurement (mass/volume) 39 mg/ dL 40-60 Cholesterol in LDL [mass/volume] in serum or plasma by direct assay 93 mg/dL 1-129 Serum or plasma cholesterol in VLDL measurement (mass/volume) 22 mg/ dL 5-40 Hemoglobin A1c - 04/24/16 10:45 Hemoglobin A1c 6.2 % 4.5-6.2 THYROID STIMULATING HORMONE - 04/24/16 10:45 THYROID STIMULATING HORMONE 2.88 u[iU]/mL 0.35-4.94 Complete blood count (CBC) with automated white blood cell (WBC) differential - 05/21/16 15:43 Blood leukocytes automated count (number/volume) 10.3 10*3/uL 4.3-11.0 Blood erythrocytes automated count (number/volume) 5.29 10*6/uL 4.35-5.85 Venous blood hemoglobin measurement (mass/volume) 16.9 g/dL 13.3-17.7 Blood hematocrit (volume fraction) 48 % 40-54 Automated erythrocyte mean corpuscular volume 91 [foz_us] 80-99 Automated erythrocyte mean corpuscular hemoglobin (mass per erythrocyte) 32 pg 25-34 Automated erythrocyte mean corpuscular hemoglobin concentration measurement ( mass/volume) 35 g/dL 32-36 Automated erythrocyte distribution width ratio 14.5 % 10.0-14.5 Automated blood platelet count (count/volume) 197 10*3/uL 130-400 Automated blood platelet mean volume measurement 10.8 [foz_us] 7.4-10.4 Automated blood neutrophils/100 leukocytes 66 % 42-75 Automated blood lymphocytes/100 leukocytes 23 % 12-44 Blood monocytes/100 leukocytes 9 % 0-12 Automated blood eosinophils/100 leukocytes 2 % 0-10 Automated blood basophils/100 leukocytes 1 % 0-10 Blood neutrophils automated count (number/volume) 6.7 10*3 1.8-7.8 Blood lymphocytes automated count (number/volume) 2.3 10*3 1.0-4.0 Blood monocytes automated count (number/volume) 0.9 10*3 0.0-1.0 Automated eosinophil count 0.2 10*3/uL 0.0-0.3 Automated blood basophil count (count/volume) 0.1 10*3/uL 0.0-0.1 Comprehensive metabolic panel - 05/21/16 15:43 Serum or plasma sodium measurement (moles/volume) 140 mmol/L 135-145 Serum or plasma potassium measurement (moles/volume) 3.7 mmol/L 3.6-5.0 Serum or plasma chloride measurement (moles/volume) 106 mmol/L 98-107 Carbon dioxide 23 mmol/L 21-32 Serum or plasma anion gap determination (moles/volume) 11 mmol/L 5-14 Serum or plasma urea nitrogen measurement (mass/volume) 16 mg/dL 7-18 Serum or plasma creatinine measurement (mass/volume) 1.11 mg/dL 0.60-1.30 Serum or plasma urea nitrogen/creatinine mass ratio 14 NRG Serum or plasma creatinine measurement with calculation of estimated glomerular filtration rate > NRG Serum or plasma glucose measurement (mass/volume) 111 mg/dL 70-105 Serum or plasma calcium measurement (mass/volume) 9.1 mg/dL 8.5-10.1 Serum or plasma total bilirubin measurement (mass/volume) 0.8 mg/dL 0.1-1.0 Serum or plasma alkaline phosphatase measurement (enzymatic activity/volume) 75 U/L 40-136 Serum or plasma aspartate aminotransferase measurement (enzymatic activity/ volume) 19 U/L 5-34 Serum or plasma alanine aminotransferase measurement (enzymatic activity/volume ) 20 U/L 0-55 Serum or plasma protein measurement (mass/volume) 7.0 g/dL 6.4-8.2 Serum or plasma albumin measurement (mass/volume) 4.3 g/dL 3.2-4.5 Magnesium - 05/21/16 15:43 Magnesium 2.2 mg/dL 1.8-2.4 Serum or plasma lithium measurement (moles/volume) - 05/21/16 15:43 BNP level 195.7 pg/mL <100.0 THYROID STIMULATING HORMONE - 05/21/16 15:43 THYROID STIMULATING HORMONE 2.50 u[iU]/mL 0.35-4.94 Automated blood complete blood count (hemogram) panel - 05/24/16 07:29 Blood leukocytes automated count (number/volume) 9.7 10*3/uL 4.3-11.0 Blood erythrocytes automated count (number/volume) 5.60 10*6/uL 4.35-5.85 Venous blood hemoglobin measurement (mass/volume) 17.4 g/dL 13.3-17.7 Blood hematocrit (volume fraction) 51 % 40-54 Automated erythrocyte mean corpuscular volume 91 [foz_us] 80-99 Automated erythrocyte mean corpuscular hemoglobin (mass per erythrocyte) 31 pg 25-34 Automated erythrocyte mean corpuscular hemoglobin concentration measurement ( mass/volume) 34 g/dL 32-36 Automated erythrocyte distribution width ratio 14.6 % 10.0-14.5 Automated blood platelet count (count/volume) 207 10*3/uL 130-400 Automated blood platelet mean volume measurement 10.7 [foz_us] 7.4-10.4 PT panel in platelet poor plasma by coagulation assay - 05/24/16 07:29 Prothrombin time (PT) in platelet poor plasma by coagulation assay 13.5 s 12.2-14.7 INR in platelet poor plasma or blood by coagulation assay 1.1 0.8-1.4 Activated partial thromboplastin time (aPTT) in platelet poor plasma bycoagulation assay - 05/24/16 07:29 Activated partial thromboplastin time (aPTT) in platelet poor plasma bycoagulation assay 27 s 24-35 Comprehensive metabolic panel - 05/24/16 07:29 Serum or plasma sodium measurement (moles/volume) 142 mmol/L 135-145 Serum or plasma potassium measurement (moles/volume) 4.1 mmol/L 3.6-5.0 Serum or plasma chloride measurement (moles/volume) 106 mmol/L 98-107 Carbon dioxide 25 mmol/L 21-32 Serum or plasma anion gap determination (moles/volume) 11 mmol/L 5-14 Serum or plasma urea nitrogen measurement (mass/volume) 20 mg/dL 7-18 Serum or plasma creatinine measurement (mass/volume) 1.11 mg/dL 0.60-1.30 Serum or plasma urea nitrogen/creatinine mass ratio 18 NRG Serum or plasma creatinine measurement with calculation of estimated glomerular filtration rate > NRG Serum or plasma glucose measurement (mass/volume) 109 mg/dL 70-105 Serum or plasma calcium measurement (mass/volume) 9.4 mg/dL 8.5-10.1 Serum or plasma total bilirubin measurement (mass/volume) 1.2 mg/dL 0.1-1.0 Serum or plasma alkaline phosphatase measurement (enzymatic activity/volume) 80 U/L 40-136 Serum or plasma aspartate aminotransferase measurement (enzymatic activity/ volume) 21 U/L 5-34 Serum or plasma alanine aminotransferase measurement (enzymatic activity/volume ) 19 U/L 0-55 Serum or plasma protein measurement (mass/volume) 7.4 g/dL 6.4-8.2 Serum or plasma albumin measurement (mass/volume) 4.6 g/dL 3.2-4.5 Lipid 1996 panel - 05/24/16 07:29 Serum or plasma triglyceride measurement (mass/volume) 109 mg/dL <150 Serum or plasma cholesterol measurement (mass/volume) 165 mg/dL < 200 Serum or plasma cholesterol in HDL measurement (mass/volume) 40 mg/ dL 40-60 Cholesterol in LDL [mass/volume] in serum or plasma by direct assay 97 mg/dL 1-129 Serum or plasma cholesterol in VLDL measurement (mass/volume) 22 mg/ dL 5-40 Methicillin resistant Staphylococcus aureus (MRSA) screening culture - 07:29 Methicillin resistant Staphylococcus aureus (MRSA) screening culture NEG NRG Encounters ACCT No. Visit Date/Time Discharge Status Pt. Type Provider Facility Loc./Unit Complaint [id number] 04/17/2017 08:03:00 04/17/2017 23:59:59 CLS Outpatient RYAN HAYS FISHERIES MANAGEMENT BIOLOGIST [facility] RAD BILATERAL BREAST PAIN [id number] 03/11/2017 20:06:00 03/11/2017 21:20:00 DIS Emergency SHIVA DECKER FISHER[employer] MANAGEMENT BIOLOGIST [facility] ER R FOOT PAIN [id number] 08/17/2016 21:00:00 08/17/2016 23:59:59 CLS Preadmit [employer]OM OPERATOR [facility] SLEEP ALIZA [id number] 05/24/2016 06:39:00 05/24/2016 13:50:00 DIS Outpatient ABRAHAM YU MD, FACC, FACP CCDS [facility] CATH CHF,CAD [id number] 05/23/2016 08:43:00 05/23/2016 23:59:59 CLS Outpatient ABRAHAM YU MD, FACC, FACP CCDS [facility] RT CAD,HLP,HTN [id number] 05/21/2016 20:02:00 05/22/2016 06:10:00 DIS Outpatient CHRISTIE NAYAK [facility] SLEEP SNORING, HYPERTENSION,EXCESSIVE DAYTIME SLEEPINESS, [id number] 05/21/2016 15:27:00 05/21/2016 23:59:59 CLS Outpatient ABRAHAM YU MD, FACC, FACP CCDS [facility] LAB CAD,SYSTOLIC CHF,HYPERTENSION [id number] 05/15/2016 08:30:00 05/15/2016 23:59:59 CLS Outpatient AIMEE WADDELL FACC, ABRAHAM SHAVER CCDS [facility] CARD CAD,HLP,HTN [id number] 05/11/2016 11:59:00 05/11/2016 23:59:59 CLS Outpatient AIMEE WADDELL FACC, ABRAHAM FACP CCDS [facility] CARD CAD,HTN,HLP, SOB [id number] 04/24/2016 10:16:00 04/24/2016 23:59:59 CLS Outpatient CHRISTIE NAYAK FEDERAL LAW CLERK [facility] LAB SHORTNESS OF BREATH ,COUGH,SNORING,HYPERTENSION [id number] 10/02/2015 13:15:00 10/02/2015 15:03:00 DIS Emergency HANNAH WADDELL, JAYSHREE Waller [facility] ER L FOOT GOUT [id number] 07/04/2015 14:01:00 07/04/2015 23:59:59 CLS Outpatient CHRISTIE NAYAK FEDERAL LAW CLERK [facility] RAD ELEVATED BP,TIA, [id number] 07/03/2015 15:21:00 07/03/2015 19:20:00 DIS Emergency GARRISON CARVAJAL MD [facility] ER HIGH BP/BLURRED VISION [id number] 03/15/2015 11:22:00 03/15/2015 23:59:59 CLS Outpatient WON OMER MD [facility] RAD STONES [id number] 02/22/2015 07:24:00 02/22/2015 12:45:00 DIS Outpatient WON OMER MD [facility] SDC RIGHT RENAL STONE [id number] 02/18/2015 05:47:00 02/18/2015 23:59:59 CLS Outpatient WON OMER MD [facility] PREOP RIGHT RENAL STONE [id number] 02/11/2015 08:37:00 02/11/2015 23:59:59 CLS Outpatient WON OMER MD [facility] RAD LEFT URETERAL/BILAT STONES [id number] 02/08/2015 11:59:00 02/08/2015 23:59:59 CLS Outpatient WON OMER MD [facility] RAD STONE [id number] 02/08/2015 05:55:00 02/08/2015 23:59:59 CLS Outpatient WON OMER MD [facility] PREOP RIGHT RENAL STONE [id number] 01/25/2015 08:25:00 01/25/2015 14:05:00 DIS Outpatient WON OMER MD [facility] LEFT URETERAL STONE; BILATERAL RENAL STONES [id number] 01/24/2015 15:00:00 01/24/2015 23:59:59 CLS Outpatient WON OMER MD [facility] PREOP LEFT URETERAL STONE; BILATERAL RENAL STONES [id number] 01/24/2015 13:29:00 01/24/2015 23:59:59 CLS Outpatient WON OMER MD [facility] RAD STONE [id number] 01/22/2015 09:24:00 01/22/2015 12:23:00 DIS Emergency JEFF DO, KARLEY K [facility] ER ABD PAIN [id number] 12/23/2014 11:02:00 12/23/2014 23:59:59 CLS Outpatient CHRISTIE NAYAK [facility] RAD CAD,CAROTID STENOSIS [id number] 02/10/2014 08:24:00 02/10/2014 23:59:59 CLS Outpatient CHRISTIE NAYAK [facility] LAB HTN,GOUT, PROSTATE SCREENING [id number] 02/10/2014 08:15:00 02/10/2014 23:59:59 CLS Outpatient CHARANJIT WALLER [facility] LAB CAD,CARDIOMYOPATHY, [id number] ARTERIAL DISEASE,HYPER [id number] 10/30/2013 06:35:00 10/30/2013 10:22:00 DIS Outpatient GINA COSTA MD [facility] LESION [id number] 10/23/2013 10:28:00 10/23/2013 23:59:59 CLS Outpatient IGOR WADDELL, GINA Browne [facility] PREOP LESION [id number] 09/04/2013 18:02:00 09/04/2013 21:27:00 DIS Emergency ANASTACIA MCCONNELL [facility] ER R FOOT INJ [id number] 07/27/2013 10:57:00 07/27/2013 23:59:59 CLS Outpatient AIMEE WADDELL FACC, ABRAHAM SHAVER CCDS [facility] CARD HTN,HLP,CAD [id number] 06/17/2013 18:40:00 06/19/2013 18:00:00 DIS Inpatient ENRIQUE WADDELL, JOHANNA Batista [facility] ICU CHEST PAIN [id number] 04/26/2013 20:54:00 04/26/2013 22:26:00 DIS Emergency ANASTACIA MCCONNELL [facility] ER L SHOULDER PAIN [id number] 01/23/2013 08:57:00 01/23/2013 23:59:59 CLS Outpatient TULIO ENGEL [facility] LAB CAD,HTN,STATIN [place] [id number] 01/23/2013 08:51:00 01/23/2013 23:59:59 CLS Outpatient WON OMER MD [facility] RAD BILAT RENAL STONES [id number] 01/08/2013 11:42:00 01/08/2013 12:57:00 DIS Emergency JAYSHREE YOUNG MD [facility] ER KIDNEY STONES [id number] 01/07/2013 19:14:00 01/07/2013 21:34:00 DIS Emergency CORNELL FREEMAN MD [facility] ER KIDNEY PAIN [id number] 12/16/2012 17:50:00 12/16/2012 20:10:00 DIS Emergency JANELL ENGEL MD [facility] ER ABD/FLANK PAIN [id number] 12/13/2012 11:57:00 12/13/2012 14:10:00 DIS Emergency KARLEY AGUILAR DO [facility] ER HIGH BLOOD PRESSURE HEAD ACHE [id number] 12/20/2014 16:58:00 Document Registration [id number] 12/20/2014 16:58:00 Document Registration [id number] 12/20/2014 16:58:00 Document Registration [id number] 12/20/2014 16:58:00 Document Registration [id number] 12/20/2014 16:58:00 Document Registration [id number] 12/20/2014 16:58:00 Document Registration [id number] 07/09/2012 08:21:00 Document Registration [id number] 05/31/2010 08:25:00 Document Registration [id number] 04/26/2010 17:58:00 Document Registration 0000 05/02/2017 23:08:36 05/02/2017 23:59:59 CLS Outpatient [id number] 12/16/2012 17:44:00 12/16/2012 17:48:00 DIS Emergency
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
== END 2017-09-22 01:16 | disposition home or self-care (01) ==
LOC: EDUNIT# 23:27 → ER 23:29
DX: Z04.3 Encounter for examination and observation following other accident (principal); M10.9 Gout, unspecified; K21.9 Gastro-esophageal reflux disease without esophagitis; I25.10 Atherosclerotic heart disease of native coronary artery without angina pectoris; E78.00 Pure hypercholesterolemia, unspecified; J45.909 Unspecified asthma, uncomplicated; I10 Essential (primary) hypertension; Z87.81 Personal history of (healed) traumatic fracture; Z87.442 Personal history of urinary calculi; Z86.73 Personal history of transient ischemic attack (TIA), and cerebral infarction without residual deficits; Z95.1 Presence of aortocoronary bypass graft; Z95.810 Presence of automatic (implantable) cardiac defibrillator; Z79.82 Long term (current) use of aspirin; V40.9XXA Unspecified car occupant injured in collision with pedestrian or animal in traffic accident, initial encounter; Y92.411 Interstate highway as the place of occurrence of the external cause
CPT/HCPCS: 71046

== ENCOUNTER 2017-11-27 16:12 | Emergency (ER) | payer MEDICARE, OTHER ==
[~2017-11-27] VITALS: Ht 170.2 cm; Wt 77.1 kg
--- NOTE | 2017-11-27 16:26 | ED Lower Extremity ---
General Chief Complaint: Lower Extremity Stated Complaint: L ANKLE SWELLING Nursing Triage Note: ARRIVED VIA AMB TO ROOM 05. COMPLAINS OF LEFT ANKLE SWELLING AND PAIN SINCE SAT. DENIES INJURY. Nursing Sepsis Screen: No Definite Risk Source: patient Exam Limitations: no limitations History of Present Illness Date Seen by Provider: Nov 27, 2017 Time Seen by Provider: 16:23 Initial Comments to ER with reports of left lateral ankle swelling and pain since Saturday. Denies any known injury. States he was working outside and noticed it was a little sore and then more sore and swollen the next day. He does have a history of gout in this foot but not in this location. Onset: just prior to arrival Severity: moderate Pain/Injury Location: left ankle Method of Injury: unknown Modifying Factors: Worse With Movement Allergies and Home Medications Allergies Coded Allergies: No Known Drug Allergies (Unverified , 10/23/09) Home Medications Aspirin 81 Mg Tablet.dr, 81 MG PO DAILY, (Reported) Carvedilol 3.125 Mg Tablet, 3.125 MG PO BID, (Reported) Cephalexin 500 Mg Capsule, 500 MG PO TID Prescribed by: SHIVA DECKER on 11/27/17 172 Clopidogrel Bisulfate 75 Mg Tablet, 75 MG PO DAILY, (Reported) Naproxen 500 Mg Tablet, 500 MG PO BID PRN for PAIN-MODERATE TO SEVERE Prescribed by: SHIVA DECKER on 11/27/17 172 Tamsulosin HCl 0.4 Mg Cap.er.24h, 0.4 MG PO DAILY, (Reported) Patient Home Medication List Home Medication List Reviewed: Yes Constitutional: see HPI EENTM: see HPI Respiratory: no symptoms reported Cardiovascular: no symptoms reported Genitourinary: no symptoms reported Musculoskeletal: see HPI Skin: no symptoms reported Psychiatric/Neurological: No Symptoms Reported Past Jdbdznt-Woesoi-Odxcal Hx Patient Social History Recent Foreign Travel: No Contact w/Someone Who Travel: No Recent Infectious Disease Expo: No Recent Hopitalizations: No Immunizations Up To Date Tetanus Booster (TDap): Less than 5yrs Seasonal Allergies Seasonal Allergies: Yes Past Medical History Surgeries: No (CAROTID, CARDIAC CATH--NO STENTS, CABGx4, R WRIST,EGD, ppm/aicd) Cardiac, CABG, Orthopedic, Pacemaker, Vascular Surgery Respiratory: Yes Asthma Cardiac: Yes (CAROTID DISEASE) Coronary Artery Disease, High Cholesterol, Hypertension, Peripheral Vascular Neurological: Yes TIA Reproductive Disorders: No Sexually Transmitted Disease: No HIV/AIDS: No Genitourinary: Yes Prostate Problems, Kidney Stones Gastrointestinal: Yes Gastroesophageal Reflux, Chronic Diarrhea Musculoskeletal: Yes (RIGHT WRIST FX ORIF) Chronic Back Pain, Fractures, Gout Endocrine: No HEENT: No Loss of Vision: Bilateral Hearing Impairment: Deaf Cancer: No Psychosocial: Yes Anxiety Integumentary: No Blood Disorders: No Adverse Reaction/Blood Tranf: No Family Medical History Cancer 03 FATHER (lung ca passed at 65) History of - disorder 03 MOTHER ( from complication of surgery with staph infection) Kidney disease 09 SISTER ( from severe uti at age 54) Physical Exam Vital Signs Vital Signs - First Documented 11/27/17 16:15 Temp 98.0 Pulse 94 Resp 16 B/P (MAP) 156/90 (112) Pulse Ox 97 O2 Delivery Room Air Capillary Refill : Less Than 3 Seconds General Appearance: WD/WN, no apparent distress HEENT: PERRL/EOMI, normal ENT inspection Neck: non-tender, full range of motion Respiratory: normal breath sounds, no respiratory distress, no accessory muscle use Gastrointestinal: normal bowel sounds, non tender Hips: bilateral hip non-tender, bilateral hip normal inspection, bilateral hip normal range of motion Legs: bilateral leg non-tender, bilateral leg normal inspection, bilateral leg normal range of motion Knees: bilateral knee non-tender, bilateral knee normal inspection, bilateral knee normal range of motion Ankles: left ankle pain, left ankle soft tissue tenderness, left ankle swelling , left ankle other (swelling over the lateral malleolus with a bit of erythema posterior to lateral malleolus. There is also some mild erythema to the anterior left lower leg. ) Progress/Results/Core Measures Results/Orders My Orders Orders - SHIVA DECKER APRN Us Venous Lower Ext Lt (11/27/17 16:20) Ankle, Left, 3 Views (11/27/17 16:20) Ketorolac Injection (Toradol Injection) (11/27/17 17:45) Dexamethasone Injection (Decadron Inject (11/27/17 17:45) Vital Signs/I&O 11/27/17 16:15 Temp 98.0 Pulse 94 Resp 16 B/P (MAP) 156/90 (112) Pulse Ox 97 O2 Delivery Room Air Blood Pressure Mean: 112 Departure Communication (Admissions) differential would include a gouty arthropathy though the pain is not the entire ankle. There is erythema over the anterior lower tibia so I would think infectious process such as a mild cellulitis will be more likely. Impression Primary Impression: Left ankle pain Additional Impression: Cellulitis of left lower limb Disposition: HOME, SELF-CARE Condition: Stable Departure-Patient Inst. Decision time for Depature: 17:23 Referrals: DENY GOMEZ MD (PCP/Family) Primary Care Physician Patient Instructions: Cellulitis (Skin Infection), Adult (DC) Add. Discharge Instructions: 1. return to ER for any worsening symptoms 2. See Dr Gomez later this week. 3. Take the antiinflammatories and antibiotics as directed Scripts Naproxen (Naproxen) 500 Mg Tablet 500 MG PO BID PRN for PAIN-MODERATE TO SEVERE, #30 TAB Prov: SHIVA DECKER APRN 11/27/17 Cephalexin (Keflex) 500 Mg Capsule 500 MG PO TID, #21 CAP Prov: SHIVA DECKER APRN 11/27/17 SHIVA DECKER APRN Nov 27, 2017 16:25
--- NOTE | 2017-11-27 17:17 | Diagnostic Imaging Report ---
PROCEDURE: US left lower extremity venous. TECHNIQUE: Multiple real-time grayscale images were obtained over the left lower extremity in various projections. Additional duplex Doppler and color Doppler images were also obtained. INDICATION: Left ankle pain and swelling. FINDINGS: Color Doppler imaging shows normal color flow enhancement from the external iliac vein throughout the left lower extremity to the ankle. Calf compression shows normal augmentation of flow at the popliteal level with Doppler sampling. There are no popliteal cysts. IMPRESSION: Normal left lower extremity venous ultrasound. Dictated by: Dictated on workstation # [id number]
--- NOTE | 2017-11-27 17:21 | Diagnostic Imaging Report ---
INDICATION: Left ankle pain and swelling since Saturday. No history of trauma. EXAMINATION: Three views of the left ankle were obtained. FINDINGS: The ankle mortise shows good alignment. The articulating surfaces are smooth. There are no fractures demonstrated. Talar plafond appears normal. No evidence of osteochondritis dissecans. Mild soft tissue swelling noted both medially and laterally. IMPRESSION: Mild soft tissue swelling with no evidence of fractures or significant degenerative changes. Dictated by: Dictated on workstation # [id number]
[2017-11-27] MEDS ORDERED: CEPH-507 PO (17:26)
[2017-11-27] MEDS ORDERED: NAPR-915 PO (17:26)
[2017-11-27] MEDS ORDERED: KETOROLAC 60 MG/2 ML VIAL IM ONE (17:45)
[2017-11-27] MEDS ORDERED: DEXAMETHASONE 10 MG/ML (DECADRON) 1 ML VIAL IM ONE (17:45)
[2017-11-27 17:57] VITALS: BP 149/98
== END 2017-11-27 17:57 | disposition home or self-care (01) ==
LOC: ER 16:12 → EDUNIT# 16:12 → ER 17:57
DX: L03.116 Cellulitis of left lower limb (principal); M25.572 Pain in left ankle and joints of left foot; J45.909 Unspecified asthma, uncomplicated; E78.00 Pure hypercholesterolemia, unspecified; I73.9 Peripheral vascular disease, unspecified; I10 Essential (primary) hypertension; I25.810 Atherosclerosis of coronary artery bypass graft(s) without angina pectoris; M10.9 Gout, unspecified; K21.9 Gastro-esophageal reflux disease without esophagitis; F41.9 Anxiety disorder, unspecified; Z80.1 Family history of malignant neoplasm of trachea, bronchus and lung; Z86.73 Personal history of transient ischemic attack (TIA), and cerebral infarction without residual deficits; Z87.442 Personal history of urinary calculi; Z87.19 Personal history of other diseases of the digestive system; Z79.82 Long term (current) use of aspirin; Z79.02 Long term (current) use of antithrombotics/antiplatelets; Z95.1 Presence of aortocoronary bypass graft; Z95.0 Presence of cardiac pacemaker
CPT/HCPCS: 73610; 96372

== ENCOUNTER 2018-01-29 06:27 | Emergency (ER) | payer OTHER, MEDICARE ==
[~2018-01-29] VITALS: Ht 177.8 cm; Wt 109.8 kg
[~2018-01-29 06:27] MED LIST changes: +CEPH-507 PO; +NAPR-915 PO; -SPIR25TA3 PO; +SPIR25TA5 PO
--- OUTSIDE RECORDS SUMMARY | 2018-01-29 06:37 | XMS REPORT | Continuity of Care Document ---
Author Author [facility] Organization [facility] Address Unknown Phone Unavailable Allergies Active Description Code Type Severity Reaction Onset Reported/Identified Relationship to Patient Clinical Status Yes No Known Drug Allergies [id number] Drug Allergy Mild N/A 10/23/2009 Medications There [...] 12/20/2014 Ot 780.79 12/20/2014 MAREN TULIO Ra FIXED INTEREST DEALER Ot 401.9 12/20/2014 MAREN TULIO Ra FIXED INTEREST DEALER Ot 414.01 12/20/2014 KAN WADDELL, WON Temple [...] P Ot V74.8 12/20/2014 CHARANJIT WALLER L FIXED INTEREST DEALER Ot 272.4 12/20/2014 CHARANJIT WALLER L FIXED INTEREST DEALER Ot 401.9 12/20/2014 BAIMACHARANJIT L FIXED INTEREST DEALER Ot 414.00 12/20/2014 BAIMA CHARANJIT L FIXED INTEREST DEALER Ot 425.4 12/20/2014 BAIMA CHARANJIT L FIXED INTEREST DEALER Ot 447.9 12/20/2014 BAIMA CHARANJIT L FIXED INTEREST DEALER Ot V45.89 12/20/2014 CHRISTIE NAYAK FIXED INTEREST DEALER Ot 272.4 12/20/2014 CHRISTIE NAYAK FIXED INTEREST DEALER Ot 274.9 12/20/2014 CHRISTIE NAYAK FIXED INTEREST DEALER Ot 401.9 01/07/2015 CHRISTIE NAYAK FIXED INTEREST DEALER Ot 257.2 01/07/2015 CHRISTIE NAYAK FIXED INTEREST DEALER Ot 414.00 01/07/2015 CHRISTIE NAYAK FIXED INTEREST DEALER Ot 433.10 01/09/2015 Ot 414.01 01/09/2015 Ot 424.0 01/09/2015 Ot 429.3 01/09/2015 Ot V45.81 01/09/2015 Ot 272.4 01/09/2015 Ot 401.9 01/09/2015 Ot 780.79 01/09/2015 TULIO ENGEL FIXED INTEREST DEALER Ot 401.9 01/09/2015 TULIO ENGEL FIXED INTEREST DEALER Ot 414.01 01/09/2015 KAN WADDELL, WON A [...] P Ot V74.8 01/09/2015 CHARANJIT WALLER L FIXED INTEREST DEALER Ot 272.4 01/09/2015 CHARANJIT WALLER L FIXED INTEREST DEALER Ot 401.9 01/09/2015 CHARANJIT WALLER L FIXED INTEREST DEALER Ot 414.00 01/09/2015 CHRISTIN CHARANJIT L FIXED INTEREST DEALER Ot 425.4 01/09/2015 BAIMA CHARANJIT L FIXED INTEREST DEALER Ot 447.9 01/09/2015 CHARANJIT WALLER L FIXED INTEREST DEALER Ot V45.89 01/09/2015 CHRISTIE NAYAK FIXED INTEREST DEALER Ot 272.4 01/09/2015 CHRISTIE NAYAK FIXED INTEREST DEALER Ot 274.9 01/09/2015 CHRISTIE NAYAK FIXED INTEREST DEALER Ot 401.9 01/09/2015 CHRISTIE NAYAK FIXED INTEREST DEALER Ot 257.2 01/09/2015 CHRISTIE NAYAK FIXED INTEREST DEALER Ot 414.00 01/09/2015 NAEL CHRISTIE Knapp FIXED INTEREST DEALER Ot 433.10 01/22/2015 Ot 414.01 01/22/2015 Ot 424.0 01/22/2015 Ot 429.3 01/22/2015 Ot V45.81 01/22/2015 Ot 272.4 01/22/2015 Ot 401.9 01/22/2015 Ot 780.79 01/22/2015 MARENTULIO FIXED INTEREST DEALER Ot 401.9 01/22/2015 MARENTULIO FIXED INTEREST DEALER Ot 414.01 01/22/2015 KAN WADDELL, WON Temple Ot 592.0 01/22/2015 AIMEE WADDELL FAC, ALI FACP CCDS Ot 272.4 01/22/2015 AIMEE WADDELL [facility], ALI FACP CCDS Ot 401.9 01/22/2015 AIMEE WADDELL [facility], ALI FACP CCDS Ot 414.00 01/22/2015 AIMEE WADDELL FAC, ALI FACP CCDS Ot 433.10 01/22/2015 AIMEE WADDELL [facility], ALI FACP CCDS Ot 780.79 01/22/2015 AIMEE WADDELL [facility], ALI FACP CCDS Ot V45.89 01/22/2015 IGOR WADDELL, GINA P Ot 784.2 01/22/2015 IGOR WADDELL, GINA P Ot V72.63 01/22/2015 IGOR WADDELL, GINA P Ot V72.81 01/22/2015 IGOR WADDELL, GINA P Ot V72.83 01/22/2015 IGOR WADDELL, GINA P Ot V72.84 01/22/2015 IGOR WADDELL, GINA P Ot V74.8 01/22/2015 CHARANJIT WALLER L FIXED INTEREST DEALER Ot 272.4 01/22/2015 BAIAMANDA CHARANJIT L FIXED INTEREST DEALER Ot 401.9 01/22/2015 BAIAMANDA CHARANJIT L FIXED INTEREST DEALER Ot 414.00 01/22/2015 BAIMA CHARANJIT L FIXED INTEREST DEALER Ot 425.4 01/22/2015 BAIMA, CHARANJIT L FIXED INTEREST DEALER Ot 447.9 01/22/2015 BAIMA CHARANJIT L FIXED INTEREST DEALER Ot V45.89 01/22/2015 CHRISTIE NAYAK FIXED INTEREST DEALER Ot 272.4 01/22/2015 CHRISTIE NAYAK FIXED INTEREST DEALER Ot 274.9 01/22/2015 CHRISTIE NAYAK FIXED INTEREST DEALER Ot 401.9 01/22/2015 NAELCHRISTIE FIXED INTEREST DEALER Ot 257.2 01/22/2015 NAYAKCHRISTIE FIXED INTEREST DEALER Ot 414.00 01/22/2015 CHRISTIE NAYAK FIXED INTEREST DEALER Ot 433.10 01/22/2015 KARLEY AGUILAR DO Ot 592.1 CALCULUS OF URETER 01/22/2015 KARLEY AGUILAR DO Ot 789.00 ABDOMINAL PAIN, UNSPECIFIED SITE 01/24/2015 Ot 414.01 01/24/2015 Ot 424.0 01/24/2015 Ot 429.3 01/24/2015 Ot V45.81 01/24/2015 Ot 272.4 01/24/2015 Ot 401.9 01/24/2015 Ot 780.79 01/24/2015 MARENTULIO FIXED INTEREST DEALER Ot 401.9 01/24/2015 TULIO ENGEL FIXED INTEREST DEALER Ot 414.01 01/24/2015 KAN WADDELL, WON Temple [...] P Ot V74.8 01/24/2015 CHARANJIT WALLER L FIXED INTEREST DEALER Ot 272.4 01/24/2015 CHARANJIT WALLER L FIXED INTEREST DEALER Ot 401.9 01/24/2015 CHARANJIT WALLER L FIXED INTEREST DEALER Ot 414.00 01/24/2015 CHARANJIT WALLER L FIXED INTEREST DEALER Ot 425.4 01/24/2015 CHARANJIT WALLER L FIXED INTEREST DEALER Ot 447.9 01/24/2015 CHARANJIT WALLER FIXED INTEREST DEALER Ot V45.89 01/24/2015 NAELCHRISTIE FIXED INTEREST DEALER Ot 272.4 01/24/2015 CHRISTIE NAYAK FIXED INTEREST DEALER Ot 274.9 01/24/2015 CHRISTIE NAYAK FIXED INTEREST DEALER Ot 401.9 01/24/2015 CHRISTIE NAYAK FIXED INTEREST DEALER Ot 257.2 01/24/2015 NAAYKCHRISTIE FIXED INTEREST DEALER Ot 414.00 01/24/2015 NAYAKCHRISTIE FIXED INTEREST DEALER Ot 433.10 01/25/2015 KAN WADDELL, WON Temple [...] 401.9 04/07/2015 Ot 780.79 04/07/2015 TULIO ENGEL FIXED INTEREST DEALER Ot 401.9 04/07/2015 TULIO ENGEL M FIXED INTEREST DEALER Ot 414.01 04/07/2015 KAN WADDELL, WON A [...] GINA P Ot V74.8 04/07/2015 CHARANJIT WALLER FIXED INTEREST DEALER Ot 272.4 04/07/2015 CHARANJIT WALLER FIXED INTEREST DEALER Ot 401.9 04/07/2015 CHARANJIT AWLLER L FIXED INTEREST DEALER Ot 414.00 04/07/2015 CHARANJIT WALLER FIXED INTEREST DEALER Ot 425.4 04/07/2015 CHARANJIT WALLER FIXED INTEREST DEALER Ot 447.9 04/07/2015 CHARANJIT WALLER FIXED INTEREST DEALER Ot V45.89 04/07/2015 CHRISTIE NAYAK FIXED INTEREST DEALER Ot 272.4 04/07/2015 CHRISTIE NAYAK FIXED INTEREST DEALER Ot 274.9 04/07/2015 CHRISTIE NAYAK FIXED INTEREST DEALER Ot 401.9 04/07/2015 CHRISTIE NAYAK FIXED INTEREST DEALER Ot 257.2 04/07/2015 CHRISTIE NAYAK FIXED INTEREST DEALER Ot 414.00 04/07/2015 CHRISTIE NAYAK FIXED INTEREST DEALER Ot 433.10 04/07/2015 KAN WADDELL, WON A [...] 401.9 04/07/2015 Ot 780.79 04/07/2015 TULIO ENGEL FIXED INTEREST DEALER Ot 401.9 04/07/2015 TULIO ENGEL FIXED INTEREST DEALER Ot 414.01 04/07/2015 KAN WADDELL, WON A Ot 592.0 04/07/2015 AIMEE WADDELL [facility], ALI FACP CCDS Ot 272.4 04/07/2015 AIMEE WADDELL [facility], ALI FACP CCDS Ot 401.9 04/07/2015 AIMEE WADDELL [facility], ALI FACP CCDS Ot 414.00 04/07/2015 AIMEE WADDELL [facility], ALI FACP CCDS Ot 433.10 04/07/2015 AIMEE WADDELL [facility], ALI FACP CCDS Ot 780.79 04/07/2015 AIMEE WADDELL [facility], ALI FACP CCDS Ot V45.89 04/07/2015 IGOR WADDELL, GINA P Ot 784.2 04/07/2015 IGOR WADDELL, GINA P Ot V72.63 04/07/2015 IGOR WADDELL, GINA P Ot V72.81 04/07/2015 IGOR WADDELL, GINA P Ot V72.83 04/07/2015 IGOR WADDELL, GINA P Ot V72.84 04/07/2015 IGOR WADDELL, GINA P Ot V74.8 04/07/2015 CHARANJIT WALLER FIXED INTEREST DEALER Ot 272.4 04/07/2015 CHARANJIT WALLER FIXED INTEREST DEALER Ot 401.9 04/07/2015 CHARANJIT WALLER L FIXED INTEREST DEALER Ot 414.00 04/07/2015 CHARANJIT WALLER FIXED INTEREST DEALER Ot 425.4 04/07/2015 CHARANJIT WALLER L FIXED INTEREST DEALER Ot 447.9 04/07/2015 CHARANJIT WALLER L FIXED INTEREST DEALER Ot V45.89 04/07/2015 CHRISTIE NAYAK FIXED INTEREST DEALER Ot 272.4 04/07/2015 CHRISTIE NAYAK FIXED INTEREST DEALER Ot 274.9 04/07/2015 CHRISTIE NAYAK FIXED INTEREST DEALER Ot 401.9 04/07/2015 CHRISTIE NAYAK FIXED INTEREST DEALER Ot 257.2 04/07/2015 CHRISTIE NAYAK FIXED INTEREST DEALER Ot 414.00 04/07/2015 CHRISTIE NAYAK FIXED INTEREST DEALER Ot 433.10 04/07/2015 KAN WADDELL, WON Temple [...] 401.9 07/03/2015 Ot 780.79 07/03/2015 TULIO ENGEL FIXED INTEREST DEALER Ot 401.9 07/03/2015 TULIO ENGEL M FIXED INTEREST DEALER Ot 414.01 07/03/2015 KAN WADDELL, WON Temple [...] IGOR WADDELL, GINA P Ot V74.8 07/03/2015 BAIMAANDA, CHARANJIT L FIXED INTEREST DEALER Ot 272.4 07/03/2015 BAIAMANDA, CHARANJIT L FIXED INTEREST DEALER Ot 401.9 07/03/2015 BAIMA, CHARANJIT L FIXED INTEREST DEALER Ot 414.00 07/03/2015 BAIAMANDA, CHARANJIT L FIXED INTEREST DEALER Ot 425.4 07/03/2015 BAIAMANDA, CHARANJIT L FIXED INTEREST DEALER Ot 447.9 07/03/2015 BAIAMANDA, CHARANJIT L FIXED INTEREST DEALER Ot V45.89 07/03/2015 NAYAKCRHISTIE FIXED INTEREST DEALER Ot 272.4 07/03/2015 NAYAKCHRISTIE FIXED INTEREST DEALER Ot 274.9 07/03/2015 CHRISTIE NAYAK FIXED INTEREST DEALER Ot 401.9 07/03/2015 NAYAKCHRISTIE FIXED INTEREST DEALER Ot 257.2 07/03/2015 NAYAKCHRISTIE FIXED INTEREST DEALER Ot 414.00 07/03/2015 NAELCHRISTIE FIXED INTEREST DEALER Ot 433.10 07/03/2015 KAN WADDELL, WON A Ot 592.9 07/03/2015 KAN WADDELL, WON A Ot 592.0 07/03/2015 KAN WADDELL, WON A Ot 592.1 07/03/2015 KAN WADDELL, WON A Ot V72.63 07/03/2015 KAN WADDELL, WON A Ot V72.81 07/03/2015 KAN WADDELL, WON A Ot V74.8 07/03/2015 KAN WADDELL, WON A Ot V72.84 07/03/2015 KAN WADDELL, WON A Ot 592.0 07/03/2015 KAN WADDELL, WON A Ot 562.10 07/03/2015 KAN WADDELL, WON A Ot 592.0 07/03/2015 KNA WADDELL, WON A Ot 592.1 07/03/2015 KAN WADDELL, WON A Ot 592.0 07/03/2015 KAN WADDELL, WON A Ot V72.84 07/03/2015 KAN WADDELL, WON A Ot 592.0 07/03/2015 KAN WADDELL, WON A Ot V67.09 07/03/2015 WEI WADDELL, GARRISON Zarate Ot 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, 07/03/2015 WEI WADDELL, GARRISON Zaraet Ot G45.9 TRANSIENT CEREBRAL ISCHEMIC ATTACK, UNSP 07/03/2015 WEI WADDELL, GARRISON Zarate Ot I10 ESSENTIAL (PRIMARY) HYPERTENSION 07/03/2015 WEI WADDELL, GARRISON Zarate Ot I51.7 CARDIOMEGALY 07/03/2015 WEI WADDELL, GARRISON Zarate Ot Z95.1 PRESENCE OF AORTOCORONARY BYPASS GRAFT 07/04/2015 Ot 414.01 07/04/2015 Ot 424.0 07/04/2015 Ot 429.3 07/04/2015 Ot V45.81 07/04/2015 Ot 272.4 07/04/2015 Ot 401.9 07/04/2015 Ot 780.79 07/04/2015 MARENTULIO FIXED INTEREST DEALER Ot 401.9 07/04/2015 MAREN TULIO Knapp FIXED INTEREST DEALER Ot 414.01 07/04/2015 KAN WADDELL, WON Temple Ot 592.0 07/04/2015 AIMEE WADDELL FACC, ALI FACP CCDS Ot 272.4 07/04/2015 AIMEE WADDELL FACC, ALI FACP CCDS Ot 401.9 07/04/2015 AIMEE WDADELL FACC, ALI FACP CCDS Ot 414.00 07/04/2015 [...] GINA P Ot V74.8 07/04/2015 CHARANJIT WALLER FIXED INTEREST DEALER Ot 272.4 07/04/2015 CHARANJIT WALLER FIXED INTEREST DEALER Ot 401.9 07/04/2015 CHARANJIT WALLER FIXED INTEREST DEALER Ot 414.00 07/04/2015 CHARANJIT WALLER FIXED INTEREST DEALER Ot 425.4 07/04/2015 CHARANJIT WALLER FIXED INTEREST DEALER Ot 447.9 07/04/2015 CHARANJIT WALLER FIXED INTEREST DEALER Ot V45.89 07/04/2015 CHRISTIE NAYAK FIXED INTEREST DEALER Ot 272.4 07/04/2015 CHRISTIE NAYAK FIXED INTEREST DEALER Ot 274.9 07/04/2015 CHRISTIE NAYAK FIXED INTEREST DEALER Ot 401.9 07/04/2015 CHRISTIE NAYAK FIXED INTEREST DEALER Ot 257.2 07/04/2015 CHRISTIE NAYAK FIXED INTEREST DEALER Ot 414.00 07/04/2015 CHRISTIE NAYAK FIXED INTEREST DEALER Ot 433.10 07/04/2015 KAN WADDELL, WON A [...] 401.9 07/21/2015 Ot 780.79 07/21/2015 TULIO ENGEL FIXED INTEREST DEALER Ot 401.9 07/21/2015 TULIO ENGEL FIXED INTEREST DEALER Ot 414.01 07/21/2015 KAN WADDELL, WON A Ot 592.0 07/21/2015 AIMEE WADDELL FAC, ALI FACP CCDS Ot 272.4 07/21/2015 AIMEE WADDELL [facility], ALI FACP CCDS Ot 401.9 07/21/2015 AIMEE WADDELL [facility], ALI FACP CCDS Ot 414.00 07/21/2015 AIMEE WADDELL [facility], ALI FACP CCDS Ot 433.10 07/21/2015 AIMEE WADDELL [facility], ALI FACP CCDS Ot 780.79 07/21/2015 AIMEE WADDELL [facility], ALI FACP CCDS Ot V45.89 07/21/2015 IGOR WADDELL, GINA P Ot 784.2 07/21/2015 IGOR WADDELL, GINA P Ot V72.63 07/21/2015 IGOR WADDELL, GINA P Ot V72.81 07/21/2015 IGOR WADDELL, GINA P Ot V72.83 07/21/2015 IGOR WADDELL, GINA P Ot V72.84 07/21/2015 IGOR WADDELL, GINA P Ot V74.8 07/21/2015 CHARANJIT WALLER FIXED INTEREST DEALER Ot 272.4 07/21/2015 CHARANJIT WALLER L FIXED INTEREST DEALER Ot 401.9 07/21/2015 CHARANJIT WALLER L FIXED INTEREST DEALER Ot 414.00 07/21/2015 CHARANJIT WALLER L FIXED INTEREST DEALER Ot 425.4 07/21/2015 CHARANJIT WALLER L FIXED INTEREST DEALER Ot 447.9 07/21/2015 CHARANJIT WALLER L FIXED INTEREST DEALER Ot V45.89 07/21/2015 CHRISTIE NAYAK FIXED INTEREST DEALER Ot 272.4 07/21/2015 CHRISTIE NAYAK FIXED INTEREST DEALER Ot 274.9 07/21/2015 CHRISTIE NAYAK FIXED INTEREST DEALER Ot 401.9 07/21/2015 CHRISTIE NAYAK FIXED INTEREST DEALER Ot 257.2 07/21/2015 CHRISTIE NAYAK FIXED INTEREST DEALER Ot 414.00 07/21/2015 CHRISTIE NAYAK FIXED INTEREST DEALER Ot 433.10 07/21/2015 KAN WADDELL, WON A Ot 592.9 07/21/2015 KAN WADEDLL, WON A Ot 592.0 07/21/2015 KAN WADDELL, WON A Ot 592.1 07/21/2015 KAN WADDELL, WON A Ot V72.63 07/21/2015 KAN WADDELL, WON A Ot V72.81 07/21/2015 KAN WADDELL, WON A Ot V74.8 07/21/2015 KAN WADDELL, WON A Ot V72.84 07/21/2015 KAN WADDELL, WON A Ot 592.0 07/21/2015 KAN WADDELL, WON A Ot 562.10 07/21/2015 KAN WADDELL, WON A Ot 592.0 07/21/2015 KAN WADDELL, WON A Ot 592.1 07/21/2015 KAN WADDELL, WON A Ot 592.0 07/21/2015 KAN WADDELL, WON A Ot V72.84 07/21/2015 KAN WADDELL, WON A Ot 592.0 07/21/2015 KAN WADDELL, WON A Ot V67.09 07/21/2015 CHRISTIE NAYAK FIXED INTEREST DEALER Ot G45.9 07/21/2015 CHRISTIE NAYAK FIXED INTEREST DEALER Ot H53.8 07/21/2015 CHRISTIE NAYAK FIXED INTEREST DEALER Ot R03.0 07/22/2015 CHRISTIE NAYAK FIXED INTEREST DEALER Ot G45.9 07/22/2015 CHRISTIE NAYAK FIXED INTEREST DEALER Ot H53.8 07/22/2015 CHRISTIE NAYAK FIXED INTEREST DEALER Ot R03.0 09/01/2015 Ot 414.01 09/01/2015 Ot 424.0 09/01/2015 Ot 429.3 09/01/2015 Ot V45.81 09/01/2015 Ot 272.4 09/01/2015 Ot 401.9 09/01/2015 Ot 780.79 09/01/2015 TULIO ENGEL FIXED INTEREST DEALER Ot 401.9 09/01/2015 TULIO ENGEL FIXED INTEREST DEALER Ot 414.01 09/01/2015 KAN WADDELL, WON A [...] GINA P Ot V74.8 09/01/2015 BAIMAMELACHARANJIT L FIXED INTEREST DEALER Ot 272.4 09/01/2015 BAIMA CHARANJIT L FIXED INTEREST DEALER Ot 401.9 09/01/2015 BAIMA, CHARANJIT L FIXED INTEREST DEALER Ot 414.00 09/01/2015 BAIMA, CHARANJIT L FIXED INTEREST DEALER Ot 425.4 09/01/2015 BAIMA, CHARANJIT L FIXED INTEREST DEALER Ot 447.9 09/01/2015 BAIMA CHARANJIT L FIXED INTEREST DEALER Ot V45.89 09/01/2015 CHRISTIE NAYAK FIXED INTEREST DEALER Ot 272.4 09/01/2015 CRHISTIE NAYAK FIXED INTEREST DEALER Ot 274.9 09/01/2015 CHRISTIE NAYAK FIXED INTEREST DEALER Ot 401.9 09/01/2015 CHRISTIE NAYAK FIXED INTEREST DEALER Ot 257.2 09/01/2015 CHRISTIE NAYAK FIXED INTEREST DEALER Ot 414.00 09/01/2015 CHRISTIE NAYAK FIXED INTEREST DEALER Ot 433.10 09/01/2015 KAN WADDELL, WON A [...] Temple Ot V67.09 09/01/2015 NAEL CHRISTIE Knapp FIXED INTEREST DEALER Ot G45.9 09/01/2015 NAEL CHRISTIE Knapp FIXED INTEREST DEALER Ot H53.8 09/01/2015 JONH NAYAKHANIE Ra FIXED INTEREST DEALER Ot R03.0 10/02/2015 HANNAH WADDELL, JAYSHREE Waller Ot 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, LEFT ANKLE AND FOOT 10/04/2015 HANNAH WADDELL, JAYSHREE Waller Ot M10.072 01/23/2016 Ot 414.01 CORONARY ATHEROSCLEROSIS OF [place] CORON 01/23/2016 Ot 424.0 MITRAL VALVE DISORDER 01/23/2016 Ot 429.3 CARDIOMEGALY 01/23/2016 Ot V45.81 AORTOCORONARY BYPASS 01/23/2016 Ot 272.4 HYPERLIPIDEMIA NEC/NOS 01/23/2016 Ot 401.9 HYPERTENSION NOS 01/23/2016 Ot 780.79 OTH MALAISE FATIGUE 01/23/2016 TULIO ENGEL FIXED INTEREST DEALER Ot 401.9 HYPERTENSION NOS 01/23/2016 TULIO ENGEL FIXED INTEREST DEALER Ot 414.01 CORONARY ATHEROSCLEROSIS OF [place] CORON 01/23/2016 KAN WADDELL, WON Maverick Ot [...] EXAMINATION 01/23/2016 GINA COSTA MD Ot V72.81 [id number] CARDIOVASCULAR 01/23/2016 GINA COSTA MD Ot V72.83 EXAM PRE-OPERATIVE NEC 01/23/2016 GINA COSTA MD Ot V72.84 EXAM PRE-OPERATIVE NOS 01/23/2016 GINA COSTA MD Ot V74.8 SCREEN-BACTERIAL DIS NEC 01/23/2016 CHARANJIT WALLER L FIXED INTEREST DEALER Ot 272.4 HYPERLIPIDEMIA NEC/NOS 01/23/2016 CHARANJIT WALLER L FIXED INTEREST DEALER Ot 401.9 HYPERTENSION NOS 01/23/2016 CHARANJIT WALLER L FIXED INTEREST DEALER Ot 414.00 CORON ATHEROSCLER NOS TYPE VESSEL, NATIV 01/23/2016 CHARANJIT WALLER L FIXED INTEREST DEALER Ot 425.4 PRIM CARDIOMYOPATHY NEC 01/23/2016 MELA WALLERHER L FIXED INTEREST DEALER Ot 447.9 ARTERIAL DISEASE NOS 01/23/2016 CHRISTIN CHARANJIT L FIXED INTEREST DEALER Ot V45.89 POSTSURGICAL STATES NEC 01/23/2016 CHRISTIE NAYAK FIXED INTEREST DEALER Ot 272.4 HYPERLIPIDEMIA NEC/NOS 01/23/2016 CHRISTIE NAYAK FIXED INTEREST DEALER Ot 274.9 GOUT NOS 01/23/2016 CHRISTIE NAYAK FIXED INTEREST DEALER Ot 401.9 HYPERTENSION NOS 01/23/2016 CHRISTIE NAYAK FIXED INTEREST DEALER Ot 257.2 TESTICULAR HYPOFUNC NEC 01/23/2016 CHRISTIE NAYAK FIXED INTEREST DEALER Ot 414.00 CORON ATHEROSCLER NOS TYPE VESSEL, NATIV 01/23/2016 CHRISTIE NAYAK FIXED INTEREST DEALER Ot 433.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 W O CEREBRAL IN 01/23/2016 KAN WADDELL, WON Temple Ot 592.9 URINARY CALCULUS NOS 01/23/2016 KAN WADDELL, WON A Ot 592.0 CALCULUS OF KIDNEY 01/23/2016 WON OMER MD Ot 592.1 CALCULUS OF URETER 01/23/2016 WON OMER MD Ot V72.63 PRE-PROCEDURAL LABORATORY EXAMINATION 01/23/2016 WON OMER MD Ot V72.81 [id number] CARDIOVASCULAR 01/23/2016 KAN WADDELL, WON Temple Ot [...] SURGERY FOLLOW-UP, OTHER SURGERY 01/23/2016 CHRISTIE NAYAK FIXED INTEREST DEALER Ot G45.9 TRANSIENT CEREBRAL ISCHEMIC ATTACK, UNSP 01/23/2016 CHRISTIE NAYAK FIXED INTEREST DEALER Ot H53.8 OTHER VISUAL DISTURBANCES 01/23/2016 CHRISTIE NAYAK FIXED INTEREST DEALER Ot R03.0 ELEVATED BLOOD-PRESSURE READING, W/O RADHA 02/10/2016 Ot 414.01 CORONARY ATHEROSCLEROSIS OF [place] CORON 02/10/2016 Ot 424.0 MITRAL VALVE DISORDER 02/10/2016 Ot 429.3 CARDIOMEGALY 02/10/2016 Ot V45.81 AORTOCORONARY BYPASS 02/10/2016 Ot 272.4 HYPERLIPIDEMIA NEC/NOS 02/10/2016 Ot 401.9 HYPERTENSION NOS 02/10/2016 Ot 780.79 OTH MALAISE FATIGUE 02/10/2016 TULIO ENGEL FIXED INTEREST DEALER Ot 401.9 HYPERTENSION NOS 02/10/2016 TULIO ENGEL FIXED INTEREST DEALER Ot 414.01 CORONARY ATHEROSCLEROSIS OF [place] CORON 02/10/2016 WON OMER MD Ot 592.0 CALCULUS OF KIDNEY 02/10/2016 AIMEE WADDELL FACC, ALI FACP CCDS Ot 272.4 HYPERLIPIDEMIA NEC/NOS 02/10/2016 AIMEE WADDELL FACC, ALI FACP CCDS Ot 401.9 HYPERTENSION NOS 02/10/2016 AIMEE WADDELL [facility] FACP CCDS Ot 414.00 CORON [...] EXAMINATION 02/10/2016 GINA COSTA MD Ot V72.81 [id number] CARDIOVASCULAR 02/10/2016 GINA COSTA MD Ot V72.83 EXAM PRE-OPERATIVE NEC 02/10/2016 GINA COSTA MD Ot V72.84 EXAM PRE-OPERATIVE NOS 02/10/2016 IGOR WADDELL, GINA Browne Ot V74.8 SCREEN-BACTERIAL DIS NEC 02/10/2016 CHARANJIT WALLER L FIXED INTEREST DEALER Ot 272.4 HYPERLIPIDEMIA NEC/NOS 02/10/2016 CHRISTIN CHARANJIT L FIXED INTEREST DEALER Ot 401.9 HYPERTENSION NOS 02/10/2016 CHARANJIT WALLER L FIXED INTEREST DEALER Ot 414.00 CORON ATHEROSCLER NOS TYPE VESSEL, NATIV 02/10/2016 CHARANJIT WALLER L FIXED INTEREST DEALER Ot 425.4 PRIM CARDIOMYOPATHY NEC 02/10/2016 MELA WALLERHER L FIXED INTEREST DEALER Ot 447.9 ARTERIAL DISEASE NOS 02/10/2016 CHARANJIT WALLER L FIXED INTEREST DEALER Ot V45.89 POSTSURGICAL STATES NEC 02/10/2016 CHRISTIE NAYAK FIXED INTEREST DEALER Ot 272.4 HYPERLIPIDEMIA NEC/NOS 02/10/2016 CHRISTIE NAYAK FIXED INTEREST DEALER Ot 274.9 GOUT NOS 02/10/2016 CHRISTIE NAYAK FIXED INTEREST DEALER Ot 401.9 HYPERTENSION NOS 02/10/2016 CHRISTIE NAYAK FIXED INTEREST DEALER Ot 257.2 TESTICULAR HYPOFUNC NEC 02/10/2016 CHRISTIE NAYAK FIXED INTEREST DEALER Ot 414.00 CORON ATHEROSCLER NOS TYPE VESSEL, NATIV 02/10/2016 CHRISTIE NAYAK FIXED INTEREST DEALER Ot 433.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 W O CEREBRAL IN 02/10/2016 KAN WADDELL, WON Temple Ot 592.9 URINARY CALCULUS NOS 02/10/2016 KAN WADDELL, WON A Ot 592.0 CALCULUS OF KIDNEY 02/10/2016 KAN WADDELL, WON A Ot 592.1 CALCULUS OF URETER 02/10/2016 WON OMER MD Ot V72.63 PRE-PROCEDURAL LABORATORY EXAMINATION 02/10/2016 WON OMER MD Ot V72.81 [id number] CARDIOVASCULAR 02/10/2016 WON OMER MD Ot V74.8 [...] CEREBRAL ISCHEMIC ATTACK, UNSP 02/10/2016 CHRISTIE NAYAK FIXED INTEREST DEALER Ot H53.8 OTHER VISUAL DISTURBANCES 02/10/2016 CHRISTIE NAYAK FIXED INTEREST DEALER Ot R03.0 ELEVATED BLOOD-PRESSURE READING, W/O RADHA 04/25/2016 CHRISTIE NAYAK FIXED INTEREST DEALER Ot I10 ESSENTIAL (PRIMARY) HYPERTENSION 04/25/2016 CHRISTIE NAYAK FIXED INTEREST DEALER Ot R05 COUGH 04/25/2016 CHRISTIE NAYAK FIXED INTEREST DEALER Ot R06.02 SHORTNESS OF BREATH 04/25/2016 CHRISTIE NAYAK FIXED INTEREST DEALER Ot R06.83 SNORING 04/25/2016 CHRISTIE NAYAK FIXED INTEREST DEALER Ot R73.01 IMPAIRED FASTING GLUCOSE 04/30/2016 CHRISTIE NAYAK FIXED INTEREST DEALER Ot I10 ESSENTIAL (PRIMARY) HYPERTENSION 04/30/2016 CHRISTIE NAYAK FIXED INTEREST DEALER Ot R05 COUGH 04/30/2016 CHRISTIE NAYAK FIXED INTEREST DEALER Ot R06.02 SHORTNESS OF BREATH 04/30/2016 CHRISTIE NAYAK FIXED INTEREST DEALER Ot R06.83 SNORING 04/30/2016 CHRISTIE NAYAK FIXED INTEREST DEALER Ot R73.01 IMPAIRED FASTING GLUCOSE 05/03/2016 CHRISTIE NAYAK FIXED INTEREST DEALER Ot I10 ESSENTIAL (PRIMARY) HYPERTENSION 05/03/2016 CHRISTIE NAYAK FIXED INTEREST DEALER Ot R05 COUGH 05/03/2016 CHRISTIE NAYAK FIXED INTEREST DEALER Ot R06.02 SHORTNESS OF BREATH 05/03/2016 NAYAKCHRISTIE FIXED INTEREST DEALER Ot R06.83 SNORING 05/03/2016 NAYAKCHRISTIE FIXED INTEREST DEALER Ot R73.01 IMPAIRED FASTING GLUCOSE 05/14/2016 AIMEE WADDELL FACC, ABRAHAM FACP CCDS Ot E78.4 OTHER HYPERLIPIDEMIA 05/14/2016 AIMEE WADDELL FACC, ALI FACP CCDS Ot I11.0 HYPERTENSIVE HEART DISEASE WITH HEART FA 05/14/2016 AIMEE WADDELL FACC, ALI FACP CCDS Ot I25.10 ATHSCL HEART DISEASE OF [place] CORONARY 05/14/2016 AIMEE WADDELL FACC, ALI FACP CCDS Ot I51.7 CARDIOMEGALY 05/14/2016 AIMEE WADDELL FACC ALI FACP CCDS Ot R06.02 SHORTNESS OF BREATH 05/16/2016 AIMEE WADDELL FACC, ABRAHAM FACP CCDS Ot E78.4 OTHER HYPERLIPIDEMIA 05/16/2016 AIMEE WADDELL FACC, ALI FACP CCDS Ot I11.0 HYPERTENSIVE HEART DISEASE WITH HEART FA 05/16/2016 AIMEE WADDELL FACC, ALI FACP CCDS Ot I25.10 ATHSCL HEART DISEASE OF [place] CORONARY 05/16/2016 AIMEE WADDELL FACC, ALI FACP CCDS Ot I51.7 CARDIOMEGALY 05/16/2016 AIMEE WADDELL FACC ALI FACP CCDS Ot R06.02 SHORTNESS OF BREATH 05/22/2016 NAEL CHRISTIE M FIXED INTEREST DEALER Ot G47.10 HYPERSOMNIA, UNSPECIFIED 05/22/2016 CHRISTIE NAYAK FIXED INTEREST DEALER Ot R06.02 SHORTNESS OF BREATH 05/22/2016 CHRISTIE NAYAK FIXED INTEREST DEALER Ot R06.83 SNORING 05/22/2016 CHRISTIE NAYAK FIXED INTEREST DEALER Ot G47.10 HYPERSOMNIA, UNSPECIFIED 05/22/2016 CHRISTIE NAYAK FIXED INTEREST DEALER Ot R06.02 SHORTNESS OF BREATH 05/22/2016 CHRISTIE NAYAK FIXED INTEREST DEALER Ot R06.83 SNORING 05/22/2016 AIMEE WADDELL FACC, ABRAHAM FACP CCDS Ot E78.4 OTHER HYPERLIPIDEMIA 05/22/2016 AIMEE WADDELL FACC, ALI FACP CCDS Ot I10 ESSENTIAL (PRIMARY) HYPERTENSION 05/22/2016 AIMEE WADDELL FACC, ALI FACP CCDS Ot I25.10 ATHSCL HEART DISEASE OF [place] CORONARY 05/22/2016 AIMEE WADDELL FACC, ALI FACP [...] CCDS Ot I25.10 ATHSCL HEART DISEASE OF [place] CORONARY 05/24/2016 ABRAHAM YU MD, FACC FACP CCDS Ot I42.9 CARDIOMYOPATHY, UNSPECIFIED 05/24/2016 ABRAHAM YU MD, FACC FACP CCDS Ot R06.02 SHORTNESS OF BREATH 05/24/2016 AIMEE WADDELL FACC ALI FACP CCDS Ot E78.4 OTHER HYPERLIPIDEMIA 05/24/2016 AIMEE WADDELL FACC, ALI FACP CCDS Ot I10 ESSENTIAL (PRIMARY) HYPERTENSION 05/24/2016 AIMEE WADDELL FACC, ALI FACP CCDS Ot I25.10 ATHSCL HEART DISEASE OF [place] CORONARY 05/24/2016 AIMEE WADDELL FACC, ALI FACP [...] CCDS Ot I25.10 ATHSCL HEART DISEASE OF [place] CORONARY 05/24/2016 AIMEE WADDELL FACC, ABRAHAM FACP [...] FACC, ALI FACP CCDS Ot Z79.899 OTHER JAIL (CURRENT) DRUG THERAPY 05/24/2016 AIMEE WADDELL FACC, [...] CCDS Ot I25.10 ATHSCL HEART DISEASE OF [place] CORONARY 05/25/2016 AIMEE WADDELL FACC, ALI FACP CCDS Ot I51.7 CARDIOMEGALY 05/25/2016 AIMEE WADDELL FACC, ALI FACP CCDS Ot R06.02 SHORTNESS OF BREATH 05/27/2016 NAELCHRISTIE FIXED INTEREST DEALER Ot G47.10 HYPERSOMNIA, UNSPECIFIED 05/27/2016 NAELCHRISTIE FIXED INTEREST DEALER Ot R06.02 SHORTNESS OF BREATH 05/27/2016 NAYAKCHRISTIE FIXED INTEREST DEALER Ot R06.83 SNORING 05/27/2016 AIMEE WADDELL FACC, ALI FACP CCDS Ot E78.4 OTHER HYPERLIPIDEMIA 05/27/2016 AIMEE WADDELL FACC, ALI FACP CCDS Ot I10 ESSENTIAL (PRIMARY) HYPERTENSION 05/27/2016 AIMEE WADDELL FACC, ALI FACP CCDS Ot I25.10 ATHSCL HEART DISEASE OF [place] CORONARY 05/27/2016 AIMEE WADDELL FACC, ALI FACP CCDS Ot I42.0 DILATED CARDIOMYOPATHY 05/27/2016 AIMEE WADDELL FACC, ALI FACP CCDS Ot I50.23 ACUTE ON CHRONIC SYSTOLIC (CONGESTIVE) H 05/27/2016 AIMEE WADDELL FACC, ALI FACP CCDS Ot I51.7 CARDIOMEGALY 06/06/2016 AIMEE WADDELL FACC, ALI FACP CCDS Ot E78.4 OTHER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
[2018-01-29] MEDS ORDERED: LIDOCAINE 2% 20 ML (XYLOCAINE) VIAL INJ STA (07:17)
--- NOTE | 2018-01-29 07:40 | ED Upper Extremity ---
General Chief Complaint: Skin/Wound Problems Stated Complaint: SWELLING IN ELBOW POST OP Nursing Triage Note: PT HAD SURGERY WITH DR. OCONNOR A WEEK AGO SATURDAY AND "REMOVED GOUT" TO LEFT ELBOW. SUTURES SCHEDULED TO BE REMOVED AT 0800 THIS AM. PT WENT TO SLEEP AT 2300 01/28/18 AND WOKE UP APPROX [id number] WITH SWOLLEN LEFT ELBOW AROUND SUTURE LINE. DENIES BUMPING SITE. Nursing Sepsis Screen: No Definite Risk Source: patient Exam Limitations: no limitations History of Present Illness Date Seen by Provider: Jan 29, 2018 Time Seen by Provider: 06:40 Initial Comments Here with report of markedly trouble swelling since midnight last night. He had surgery last week to have the elbow cleaned and evaluated. Sutures are still and in his posterior get those out this morning. Reports pain with full extension but he is able to flex and rotate arm without difficulty. Denies recent fever or chills. Denies recent trauma but states that he did use his elbow to close the door of his vehicle the other day does not remember that occurred or that there is any other specific problems related to that. Swelling was not there at all last night but was there this morning when he woke up. He is on clopidogrel. Onset: this morning Severity: moderate Pain/Injury Location: left elbow Method of Injury: unknown Modifying Factors: Improves With Immobilization; Worse With Movement; Improves With Rest Allergies and Home Medications Allergies Coded Allergies: No Known Drug Allergies (Unverified , 10/23/09) Home Medications Aspirin 81 Mg Tablet.dr, 81 MG PO DAILY, (Reported) Carvedilol 3.125 Mg Tablet, 3.125 MG PO BID, (Reported) Cephalexin 500 Mg Capsule, 500 MG PO TID Prescribed by: SHIVA DECKER on 11/27/17 172 Clopidogrel Bisulfate 75 Mg Tablet, 75 MG PO DAILY, (Reported) Naproxen 500 Mg Tablet, 500 MG PO BID PRN for PAIN-MODERATE TO SEVERE Prescribed by: SHIVA DECKER on 11/27/17 172 Tamsulosin HCl 0.4 Mg Cap.er.24h, 0.4 MG PO DAILY, (Reported) Patient Home Medication List Home Medication List Reviewed: Yes Constitutional: see HPI; No chills, No fever Respiratory: no symptoms reported Cardiovascular: no symptoms reported Musculoskeletal: see HPI, joint pain, joint swelling Skin: no symptoms reported; No change in color; lesions (sutured wound to the left elbow) Past Xampitl-Eptgfb-Cfaavg Hx Past Med/Social Hx: Reviewed Nursing Past Med/Soc Hx Patient Social History Alcohol Use: Denies Use Recreational Drug Use: No Smoking Status: Never a Smoker 2nd Hand Smoke Exposure: No Recent Foreign Travel: No Contact w/Someone Who Travel: No Recent Infectious Disease Expo: No Recent Hopitalizations: No Immunizations Up To Date Tetanus Booster (TDap): Less than 5yrs Seasonal Allergies Seasonal Allergies: Yes Past Medical History Surgeries: No (CAROTID, CARDIAC CATH--NO STENTS, CABGx4, R WRIST,EGD, ppm/aicd , LEFT ELBOW) Cardiac, CABG, Orthopedic, Pacemaker, Vascular Surgery Respiratory: Yes Asthma Cardiac: Yes (CAROTID DISEASE) Coronary Artery Disease, High Cholesterol, Hypertension, Peripheral Vascular Neurological: Yes TIA Reproductive Disorders: No Sexually Transmitted Disease: No HIV/AIDS: No Genitourinary: Yes Prostate Problems, Kidney Stones Gastrointestinal: Yes Gastroesophageal Reflux, Chronic Diarrhea Musculoskeletal: Yes (RIGHT WRIST FX ORIF) Chronic Back Pain, Fractures, Gout Endocrine: No HEENT: No Loss of Vision: Bilateral Hearing Impairment: Deaf Cancer: No Psychosocial: Yes Anxiety Integumentary: No Blood Disorders: No Adverse Reaction/Blood Tranf: No Family Medical History Reviewed Nursing Family Hx Cancer 03 FATHER (lung ca passed at 65) History of - disorder 03 MOTHER ( from complication of surgery with staph infection) Kidney disease 09 SISTER ( from severe uti at age 54) Physical Exam Vital Signs Vital Signs - First Documented 01/29/18 06:46 Temp 97.6 Pulse 66 Resp 17 B/P (MAP) 189/109 (135) Pulse Ox 97 O2 Delivery Room Air Capillary Refill : Less Than 3 Seconds Height, Weight, BMI Height: 5'10.00" Weight: 242lbs. 0oz. 109.924078hy; 33.3 BMI Method:Stated General Appearance: WD/WN, no apparent distress Cardiovascular: regular rate, rhythm, no murmur Respiratory: lungs clear, normal breath sounds Elbow/Forearm: Left, limited ROM, swelling (moderate effusion noted to the posterior elbow approximately 6 x 4 cm and tense. Sutures are clean, dry and intact.) Wrist: Yes normal inspection Hand: normal inspection, normal ROM, Left Neurologic/Psychiatric: alert, oriented x 3 Skin: warm/dry; No ecchymosis Procedures/Interventions Additional Procedures: Arthrocentesis Aspirating Progress Arthrocentesis of left elbow joint effusion. Verbal consent obtained. Access via left lateral posterior approach to the largest part of the effusion. 2 percent lidocaine injected to site of aspiration. 18-gauge needle on 30 mL syringe placed through anesthetized site approximately 30 mL of bloody fluid obtained from effusion. We did send approximately 10 mL of fluid for culture. Wound expressed and all fluid obtained was bloody. No purulence or foul smell to the fluid. Covered with antibiotic ointment and dressing. Secured with [place] wrap. Patient feeling much better afterwards. Progress/Results/Core Measures Results/Orders My Orders Orders - CORNELL FREEMAN MD Lidocaine 2% Injection 20 Ml (Xylocaine (01/29/18 07:17) Vital Signs/I&O 01/29/18 06:46 Temp 97.6 Pulse 66 Resp 17 B/P (MAP) 189/109 (135) Pulse Ox 97 O2 Delivery Room Air Blood Pressure Mean: 135 Progress Progress Note : Progress Note Seen and evaluated. Discussed the case with DANILO Dixon for Dr. Oconnor. We will do arthrocentesis and have him follow-up at the clinic afterwards. This is discussed with the patient who agrees. 0810: Arthrocentesis complete. We will go ahead and get cultures of the fluid and have him follow-up with Dr. Oconnor's office right after departure here. I did talk with Javier Rivera again and he agrees with just culture at this point since the fluid was grossly bloody. Discharged home with return precautions. Patient family verbalized understanding instructions and agreement with plan. Departure Impression Primary Impression: Hemarthrosis, left elbow Disposition: 01 HOME, SELF-CARE Condition: Improved Departure-Patient Inst. Decision time for Depature: 08:10 Referrals: DENY PECK MD (PCP/Family) Primary Care Physician Patient Instructions: Hemarthrosis (DC) Add. Discharge Instructions: All discharge instructions reviewed with patient and/or family. Voiced understanding. Follow-up at Dr. Oconnor's office directly after departing here. Return for worse pain, fever, red streaks up the arm, swelling or other concerns as needed. Copy Copies To 1: JHONY OCONNOR TIMOTHY D MD Jan 29, 2018 07:40
[2018-01-29 08:17] VITALS: BP 162/96
== END 2018-01-29 08:27 | disposition home or self-care (01) ==
LOC: EDUNIT# 06:27 → ER 06:28
DX: S53.402A Unspecified sprain of left elbow, initial encounter (principal); J45.909 Unspecified asthma, uncomplicated; I25.10 Atherosclerotic heart disease of native coronary artery without angina pectoris; E78.00 Pure hypercholesterolemia, unspecified; I10 Essential (primary) hypertension; I73.9 Peripheral vascular disease, unspecified; K21.9 Gastro-esophageal reflux disease without esophagitis; F41.9 Anxiety disorder, unspecified; Z87.442 Personal history of urinary calculi; Z86.73 Personal history of transient ischemic attack (TIA), and cerebral infarction without residual deficits; Z95.1 Presence of aortocoronary bypass graft; Z95.0 Presence of cardiac pacemaker; X50.0XXA Overexertion from strenuous movement or load, initial encounter
CPT/HCPCS: 10140; 87070; 87205

== ENCOUNTER → 2018-06-02 | Outpatient (CLI) | payer MEDICARE, OTHER ==
[~2018-06-02] MED LIST changes: -AMLO2.5T; +AMLO2.5T3; -LOSA100T28 PO; +LOSA100T8 PO
--- NOTE | 2018-06-02 13:04 | Diagnostic Imaging Report ---
INDICATION: History of congestive heart failure, coronary disease, hyperlipidemia, hypertension.. TECHNIQUE: Segmental pulse pressures were performed of the upper and lower extremities. FINDINGS: RIGHT Brachial: 193 mmHg Ankle (Posterior Tibial): 234 mm Hg Index: 1.21 Ankle (Dorsalis Pedis): 222 mm Hg Index: 1.15 LEFT Brachial: 192 mmHg Ankle (Posterior Tibial): 221 mm Hg Index: 1.15 Ankle (Dorsalis Pedis): 1221 mm Hg Index: 1.15 IMPRESSION: Ankle-brachial indices as above. Ankle-Brachial Index Diagnosis/Interpretation <=0.90 Peripheral Arterial Disease 0.91-0.99 Borderline 1.00-1.40 Normal >1.40 Concern for noncompressible arteries, (assoc with Diabetes Mellitus) Dictated by: Dictated on workstation # [id number]
--- NOTE | 2018-06-02 13:25 | Diagnostic Imaging Report ---
PROCEDURE: US Bilateral lower extremity arterial. TECHNIQUE: Multiple real-time grayscale images are obtained through both lower extremity arterial systems with color Doppler imaging and color Doppler spectral analysis. INDICATION: Leg pain, coronary artery disease. COMPARISON: There are no prior studies available for comparison. FINDINGS: There is fairly good arterial blood flow to both lower extremities. Biphasic waveforms were noted at all levels with the exception of the dorsalis pedis artery on the right. The waveform in this area was monophasic. There is no abrupt alteration of the velocities to suggest hemodynamically significant stenosis. If clinical concern regarding an underlying abnormality persists, then CTA of the aorta with bilateral runoffs would be recommended. IMPRESSION: There is atherosclerotic disease involving both lower extremity arterial systems but there is no hemodynamically significant stenosis identified. Additional considerations, as above. Dictated by: Dictated on workstation # [id number]
== END ==
LOC: RAD 10:44
PROVIDERS: ATTEND Internal Medicine Interventional Cardiology
DX: I25.10 Atherosclerotic heart disease of native coronary artery without angina pectoris (principal); N52.9 Male erectile dysfunction, unspecified; I11.0 Hypertensive heart disease with heart failure; I50.23 Acute on chronic systolic (congestive) heart failure; E78.5 Hyperlipidemia, unspecified; M79.604 Pain in right leg; M79.605 Pain in left leg; Z95.810 Presence of automatic (implantable) cardiac defibrillator
CPT/HCPCS: 93922; 93925

== ENCOUNTER → 2018-07-24 | Outpatient (CLI) | payer MEDICARE ==
[~2018-07-24] VITALS: Ht 177.8 cm; Wt 103.0 kg
[~2018-07-24] MED LIST changes: -AMLO2.5T3; +AMLO2.5T4; +LOSA100T57 PO; -LOSA100T8 PO
== END | disposition home or self-care (01) ==
LOC: PREOP 05:38
PROVIDERS: ATTEND Internal Medicine Interventional Cardiology
DX: Z01.818 Encounter for other preprocedural examination (principal)

== ENCOUNTER 2019-01-12 09:25 | Day surgery (SDC) | payer MEDICARE ==
[~2019-01-12] VITALS: Ht 177.8 cm; Wt 100.7 kg
[2019-01-12] VITALS (12 sets, daily range): BP systolic 142–179; BP diastolic 75–104
[2019-01-12] MEDS ORDERED: HEParin (CATH LAB) 2,000 ML IV ONE (09:28)
[2019-01-12] MEDS ORDERED: NS IV 1000 ML 1,000 ML ONE (09:28)
[2019-01-12] MEDS ORDERED: LIDOCAINE 1% INJ 20 ML 20 ML VIAL ONE (09:28)
[2019-01-12] MEDS ORDERED: ISOPROTERENOL 0.2 MG/D5W 50 ML IV ONE (09:30)
[2019-01-12] MEDS ORDERED: NS IV 1000 ML 1,000 ML IV SCH (09:30)
[2019-01-12 10:06] LABS: HEMOGLOBIN 15.9 G/DL (13.3-17.7); MEAN PLATELET VOLUME 10.2 FL (7.4-10.4); RED CELL DISTRIBUTION WIDTH 14.4 % (10.0-14.5); WHITE BLOOD COUNT 8.7 10^3/uL (4.3-11.0)
[2019-01-12 10:28] LABS: INR 0.9 (0.8-1.4); PROTHROMBIN TIME PATIENT 12.6 SEC (12.2-14.7)
[2019-01-12 10:30] LABS: ALANINE AMINOTRANSFERASE 16 U/L (0-55); ALBUMIN 4.4 GM/DL (3.2-4.5); ALKALINE PHOSPHATASE 91 U/L (40-136); BILIRUBIN,TOTAL 0.7 MG/DL (0.1-1.0); BUN/CREATININE RATIO 14; CALCIUM 9.4 MG/DL (8.5-10.1); CARBON DIOXIDE 22 MMOL/L (21-32); CHLORIDE 107 MMOL/L (98-107); CREATININE SERUM 1.05 MG/DL (0.60-1.30); GFR ESTIMATED > 60; GLUCOSE 102 MG/DL (70-105); POTASSIUM 3.8 MMOL/L (3.6-5.0); SODIUM 140 MMOL/L (135-145); TOTAL PROTEIN 7.1 GM/DL (6.4-8.2)
[2019-01-12] MEDS ORDERED: VALS80TA31 PO (10:54)
[2019-01-12] MEDS ORDERED: ALLO300T2 PO (10:54)
[2019-01-12] MEDS ORDERED: FURO40TA4 PO (10:54)
[2019-01-12] MEDS ORDERED: CARV6.252 PO (10:54)
[2019-01-12] MEDS ORDERED: proPOfol 200 MG/20 ML (DIPRIVAN) VIAL IV ONE (11:23)
[2019-01-12] MEDS ORDERED: fentaNYL INJECTION 100 MCG/2 ML AMP ONE (11:23)
[2019-01-12] MEDS ORDERED: SEVOFLURANE (ULTANE) 15 ML INHAL SOLN ONE ×2 (11:24→15:19)
[2019-01-12] MEDS ORDERED: DEXAMETHASONE 10 MG/ML (DECADRON) 1 ML VIAL ONE (11:24)
[2019-01-12] MEDS ORDERED: ONDANSETRON 4 MG/2 ML (SDV) Z0FRAN ONE ×2 (11:24→14:58)
[2019-01-12] MEDS ORDERED: MIDAZOLAM 2 MG/2 ML (VERSED) VIAL ONE (11:29)
[2019-01-12] MEDS ORDERED: morphine INJ 10 MG/ML 1ML (SYR OR VIAL) ONE (14:57)
[2019-01-12] MEDS ORDERED: LACTATED RINGERS 1,000 ML IV ONE (15:05)
--- NOTE | 2019-01-12 15:19 | Cardiac Procedure Note-CS/ASA ---
Pre-Procedure Note Pre-Op Procedure Note H&P Reviewed The H&P was reviewed, patient examined and no changes noted. Date H&P Reviewed: Jan 12, 2019 Time H&P Reviewed: 10:00 Conscious Sedation Pre-Proced Time 10:00 ASA Score 3 For ASA 3 and 4: Consider anesthesia and medical clearance. Also, for patients with a history of failed moderate sedation consider anesthesia. Airway Lungs Heart ASA score ASA 1: a normal healthy patient ASA 2: a patient with a mild systemic disease (mid diabetes, controlled hypertension, obesity ASA 3: a patient with a severe systemic disease that limits activity (angina, COPD, prior Myocardial infarction) ASA 4: a patient with an incapacitating disease that is a constant threat to life (CHF, renal failure) ASA 5: a moribund patient not expected to survive 24 hrs. (ruptured aneurysm) ASA 6: a declared brain- patient whose organs are being harvested. For emergent operations, add the letter E after the classification Mallampati Classification Grade 1 Sedation Plan Analgesia, Amnesia, Plan communicated to team members, Discussed options with patient/fam, Discussed risks with patient/fam The patient is an appropriate candidate to undergo the planned procedure, sedation, and anesthesia. The patient immediately re-assessed prior to indication. Ra OLIVERA MD Jan 12, 2019 15:19
--- NOTE | 2019-01-12 15:29 | Electrophysiology Procedure ---
EP Procedure DATE OF SERVICE:01/12/19 CARDIAC PROCUREMENT COST COORDINATOR: Julienne Mccollum MD, [facility], [facility]. INDICATION: Typical atrial flutter, Possible PSVT. PREOPERATIVE DIAGNOSIS: Typical atrial flutter, Possible PSVT. POSTOPERATIVE DIAGNOSES: Typical atrial flutter ablation. HISTORY: this is a 68-year-old gentleman with previous history of biventricular ICD. Device interrogation showed narrow complex tachycardia for 44 seconds. Cycle length 400 ms. Morphology very likely typical atrial flutter. The patient is planned for comprehensive EP study and ablation. PROCEDURE PERFORMED: 1. Comprehensive EP study with induction. 2. Fluoroscopy. 3. left atrial pacing and recording. 4. Drug infusion. 5. Ablation of typical atrial flutter. 6. Comprehensive 3D mapping with the carto system. COMPLICATION: None. ESTIMATED BLOOD LOSS: 10 mL. CONTRAST USED: None. FLUOROSCOPY TIME: 12.9 minutes. FLUOROSCOPY DOSE: 278 mgy. SPECIMENS: None. ANESTHESIA: Done by our anesthesia colleagues. ANTICOAGULATION: none. PROCEDURE IN DETAIL: After informed consent was taken, the patient was brought to the EP lab. Anesthesia was provided by our anesthesia colleagues. The patient was draped and prepped in the usual sterile fashion. The patient presented to the EP lab in sinus rhythm. Access was gained in the right femoral vein with a 6-Sammarinese and an 8-Sammarinese sheath. Left access in left femoral vein was gained with 5-Sammarinese and 6-Sammarinese sheath respectively. High right atrial catheter was an ablation catheter, right ventricular catheter was placed, his catheter and the CS catheter were also placed. A comprehensive EP study was done including left atrial pacing and recording. Left-sided bypass tract was not identified. RV pacing demonstrated concentric atrial activation. Dual AV justyna physiology was demonstrated with single echoes. However PSVT was not induced. Dual AV justyna echoes were not demonstrated with or without Isuprel. Typical atrial flutter was not induced with rapid atrial pacing with and without Isuprel infusion. A 3D electroanatomic mapping was donewith the carto system. Ablation was performed in the cavotricuspid isthmus.CS pacing and pacing from the ablation catheter at different positions on the lateral side of the ablation line were used to verify bidirectional block. We then waited for 30 minutes and rechecked and confirmed bidirectional block.Isuprel was given post-procedure, however, we could not induce atrial flutter.The patienttolerated the procedure well and did not have any complication. The patientleft the lab in sinus rhythm. Total ablation time was 15 minutes and 2 seconds. MEASUREMENTS/EP STUDY: AA interval 1002 ms, AH interval 90 ms, HV interval 36 seconds, VT interval 216 ms, QRS duration 157 ms, QT interval 483 ms, AV Wenckebach when pacing at 320 ms, Retrograde Wenckebach when pacing at 530 ms, Atrial ERP was 600/240 ms, Atrial ERP was 600/250 ms, Fast pathway ERP was 600/290 ms, Slow pathway ERP was 600/230 ms, Atrial ERP was 600/220 ms PLAN: The patient will be observed overnight and will be discharged home tomorrow with precise followup instructions. Julienne Mccollum MD, [facility], CCDS Cardiac Electrophysiology Ra MCCOLLUM MD Jan 12, 2019 15:29
[2019-01-12] MEDS ORDERED: PATIENT MAY USE OWN MEDS, ALL PO SCH (15:30)
[2019-01-12] MEDS: NS IV 1000 ML 1,000 ML IV SCH (18:54)
--- NOTE | 2019-01-13 00:23 | NUR ---
ISUPREL, ZOFRAN AND MORPHINE NON ADMIN - GIVEN IN WIRE MESH FILTER FABRICATOR
[2019-01-13 03:30] LABS: HEMOGLOBIN 15.2 G/DL (13.3-17.7); MEAN PLATELET VOLUME 10.1 FL (7.4-10.4); RED CELL DISTRIBUTION WIDTH 14.2 % (10.0-14.5); WHITE BLOOD COUNT 11.6 10^3/uL (4.3-11.0)
[2019-01-13 04:00] VITALS: BP 144/83
[2019-01-13] MEDS: NS IV 1000 ML 1,000 ML IV SCH (05:15)
[2019-01-13 09:31] VITALS: BP 157/96
--- NOTE | 2019-01-13 12:36 | Anesthesia-General Post-Op ---
General Patient Condition Mental Status/LOC: Same as Preop Cardiovascular: Satisfactory Nausea/Vomiting: Absent Respiratory: Satisfactory Pain: Controlled Complications: Absent Post Op Complications Complications None Follow Up Care/Instructions Patient Instructions None needed. Anesthesia/Patient Condition Patient Condition Patient was already discharged to home this morning but he was doing well, no complaints, stable vital signs, no apparent adverse anesthesia problems per nursing staff. ROSE CARROLL DO Jan 13, 2019 12:36
--- NOTE | 2019-01-13 13:38 | Cardiology Discharge Summary ---
Diagnosis/Chief Complaint Date of Admission 01/12/2019 Date of Discharge 01/13/2019 Admission Diagnosis Typical atrial flutter Final/Discharge Diagnosis Successful typical atrial flutter ablation. Chief Complaint/HPI Chief Complaint/HPI this is a 68-year-old gentleman with previous history of biventricular ICD. Device interrogation showed narrow complex tachycardia for 44 seconds. Cycle length 400 ms. Morphology very likely typical atrial flutter. The patient is planned for comprehensive EP study and ablation. Discharge Summary Procedures Typical atrial flutter ablation. Discharge Physical Examination Unremarkable. Hospital Course Was the Problem List Reviewed?: Yes Unremarkable. Discussion & Recommendations Discussion Discharge took over 30 minutes to complete. All discharge instructions were discussed at length with the patient. The procedure were discussed at length with the patient. Patient will continue on same medications and follow-up in 3- 4 weeks. Follow up appt.: Dr. Mccollum in 3-4 weeks. Dicharge Diet: Cardiac Diet Activity as Tolerated: Yes Home Medications Reviewed patient Home Medication Reconciliation performed by pharmacy medication reconciliations environmental health technician and/or nursing. Patients Allergies have been reviewed. Discharge Home Medications: Reviewed and agree with Discharge Medication list on patient's Discharge Instruction sheet Condition at discharge Stable. Instructions to patient/family Discussed with the patient. Ra MCCOLLUM MD Jan 13, 2019 13:38
--- NOTE | 2019-01-13 13:38 | Discharge Inst-Post CATH ---
Discharge Inst-CATH/EP Post Cardiac Cath/EP D/C Inst Follow Up/Plan Dr. Mccollum in 3-4 weeks. <b>CARDIAC CATH/EP PROCEDURE DISCHARGE INSTRUCTIONS</b> ACTIVITY * Go Home directly and rest. * Limit activity of the leg (or wrist if it was used) for 7 days including aerobics, swimming, jogging, bicycling, etc. * Restrict stair-climbing for 7 days if possible, if not, climb up with your non-cath leg, then bring together on the same step. * Avoid lifting, pushing, pulling or excessive movement of the affected extremity for 7 days. * Customary sexual activity may be resumed after 2 days-use caution not to use a position that strains or causes pain to the affected extremity. * No driving for 24 hours. * NO SMOKING. * Avoid straining for bowel movements for 7 days. * Gentle walking on level ground is allowed. * Returning to work will depend on the type of procedure and the results. Your doctor will discuss this with you. CALL YOUR DOCTOR FOR ANY OF THE FOLLOWING: *If bleeding from the puncture site occurs- Apply gentle pressure to site with clean cloth and call your doctor or EMS. * If a knot or lump forms under the skin, increases in size, or causes pain. * If bruising appears to be worsening or moving further down your leg instead of disappearing. * Temperature above 101 F. CARE OF YOUR GROIN INCISION; * Bruising or purple discoloration of the skin near the puncture site is common. * You may shower only, no bathtub bathing for 5 days. Be careful to avoid slipping as your leg may feel stiff. * If a closure device was used on your femoral artery, please see the attached guide regarding care of the device and your leg. * Leave dressing on FOR 24 hours. CARE OF YOUR WRIST INCISION; * Bruising or purple discoloration of the skin near the puncture site is common. * You may shower. * DO NOT submerge wrist. * Leave dressing on FOR 24 hours. Ra MCCOLLUM MD Jan 13, 2019 13:38
== END 2019-01-13 11:30 | disposition home or self-care (01) ==
LOC: CATH 09:25 → ICU 16:19 → CATH 01-13 11:30
PROVIDERS: ATTEND Internal Medicine Interventional Cardiology
DX: I48.3 Typical atrial flutter (principal); I11.0 Hypertensive heart disease with heart failure; I50.23 Acute on chronic systolic (congestive) heart failure; E78.5 Hyperlipidemia, unspecified; K21.9 Gastro-esophageal reflux disease without esophagitis; I77.89 Other specified disorders of arteries and arterioles; I25.5 Ischemic cardiomyopathy; E66.9 Obesity, unspecified; N52.9 Male erectile dysfunction, unspecified; I25.10 Atherosclerotic heart disease of native coronary artery without angina pectoris; Z79.899 Other long term (current) drug therapy; Z95.1 Presence of aortocoronary bypass graft; Z87.442 Personal history of urinary calculi; Z79.82 Long term (current) use of aspirin; Z95.810 Presence of automatic (implantable) cardiac defibrillator
CPT/HCPCS: 36415; 80053; 85027; 85610; 85730; 87081; 93005; 93613; 93620; 93621; 93623; 93653

== ENCOUNTER → 2019-07-03 | Outpatient (CLI) | payer MEDICARE, OTHER ==
[~2019-07-03] MED LIST changes: +ALLO300T2 PO; -TAMS0.4C98 PO; +TMSL.4C PO; +VALS80TA31 PO
--- NOTE | 2019-07-03 10:08 | Diagnostic Imaging Report ---
PROCEDURE: US carotid duplex, bilateral. TECHNIQUE: Multiple real-time grayscale images were obtained over the carotid arteries in various projections, bilaterally. Additional spectral analysis and color Doppler duplex images were also obtained. INDICATION: Carotid arterial disease. There is mild plaquing at the carotid bulbs and bifurcations bilaterally extending into the proximal internal and external carotid arteries. Velocities are normal bilaterally. No velocity elevation or stenosis is seen. Both vertebral arteries show antegrade flow. IMPRESSION: Mild bilateral carotid plaque. There is no evidence of a hemodynamically significant stenosis. Parameters based on the consensus panel Hernandez-Scale and Doppler ultrasound criteria published April 2003, Radiology, Volume 229. DOPPLER (peak systolic velocity M/S Right Left CCA .87 .88 ICA Proximal .73 .73 ICA Mid .66 .59 ICA Distal .23 .24 RATIO .8 .8 ECA 1.98 1.43 VERT .53 .53 Dictated by: Dictated on workstation # [id number]
== END ==
LOC: RAD 08:54
PROVIDERS: ATTEND Internal Medicine Interventional Cardiology
DX: I65.23 Occlusion and stenosis of bilateral carotid arteries (principal)
CPT/HCPCS: 93880

== ENCOUNTER → 2019-07-03 | Outpatient (CLI) | payer MEDICARE, OTHER | LOC: CARD 08:57 | PROVIDERS: ATTEND Internal Medicine Interventional Cardiology | DX: I25.10 Atherosclerotic heart disease of native coronary artery without angina pectoris (principal); I42.0 Dilated cardiomyopathy; I51.7 Cardiomegaly; Z95.810 Presence of automatic (implantable) cardiac defibrillator | CPT/HCPCS: 93306 ==

== ENCOUNTER 2019-11-02 15:11 | Outpatient (RCR) | payer MEDICARE, OTHER | END 2020-01-18 14:55 | disposition home or self-care (01) | PROVIDERS: ATTEND Nurse Practitioner Family | DX: M54.16 Radiculopathy, lumbar region (principal); K21.9 Gastro-esophageal reflux disease without esophagitis; J45.909 Unspecified asthma, uncomplicated; E11.9 Type 2 diabetes mellitus without complications; I63.9 Cerebral infarction, unspecified; I11.9 Hypertensive heart disease without heart failure; Z95.0 Presence of cardiac pacemaker ==

== ENCOUNTER 2020-03-17 08:02 | Outpatient (RCR) | payer MEDICARE, OTHER | END 2020-05-09 | disposition home or self-care (01) | PROVIDERS: ATTEND Physician Assistant | DX: M48.062 Spinal stenosis, lumbar region with neurogenic claudication (principal); I10 Essential (primary) hypertension; E11.9 Type 2 diabetes mellitus without complications; K21.9 Gastro-esophageal reflux disease without esophagitis; Z95.0 Presence of cardiac pacemaker ==

== ENCOUNTER → 2021-02-15 | Outpatient (CLI) | payer MEDICARE, OTHER ==
[~2021-02-15] MED LIST changes: -HYDR-3876 PO; +HYDR-3920 PO
== END ==
LOC: CARD 11:00
PROVIDERS: ATTEND Nurse Practitioner Family
DX: I35.8 Other nonrheumatic aortic valve disorders (principal); I51.7 Cardiomegaly; I51.89 Other ill-defined heart diseases
CPT/HCPCS: 93306

== ENCOUNTER → 2021-05-12 | Outpatient (CLI) | payer MEDICARE, OTHER ==
[~2021-05-12] MED LIST changes: +CATHETER FLUSH 10 ML SYR IV PRN; +REGADENOSON 0.4 MG/5 ML SYR (LEXISCAN) IV ONE
[2021-05-12 09:07] VITALS: BP 192/102
--- NOTE | 2021-05-16 16:55 | CARDIAC CATHETERIZATION ---
DATE OF SERVICE: 05/12/2021 RESTING AND POST REGADENOSON TECHNETIUM-99M TETROFOSMIN SPECT CT IMAGING ORDERING PHYSICIAN: Luz Diaz APRN PRIMARY PHYSICIAN: abby Boyce DO CLINICAL DIAGNOSIS: Coronary artery disease. Baseline images were carried out after injection of 10.64 mCi of technetium-99m Tetrofosmin. This was followed by 0.4 mg regadenoson and 29.8 mCi of technetium-99m Tetrofosmin for stress imaging. The electrocardiogram showed sinus rhythm with a paced ventricular rhythm. The electrocardiogram did not change significantly with regadenoson infusion. The patient tolerated the procedure well. Review of images at rest and following stress indicates a large anterolateral and apical perfusion defect that is predominantly fixed. Gated images show anterolateral and apical akinesis. Left ventricular ejection fraction is calculated to be 43%. Left ventricular end diastolic volume is 186 mL. TID is absent (1.14). CONCLUSIONS: 1. Large anterolateral and apical infarction without significant ischemia. 2. Anterolateral and apical akinesis. 3. Left ventricular ejection fraction is calculated to be 43%. 4. Marked cardiomegaly. Job ID: [id number] DocumentID: [id number] Dictated Date: 05/16/2021 14:38:37 Furnace And Wash Equipment Operator Date: 05/16/2021 16:55:04 Dictated By: ABRAHAM YU MD, MA, FACP, FACC,
--- NOTE | 2021-05-16 18:28 | STRESS TEST ---
DATE OF SERVICE: 05/12/2021 RESTING AND POST REGADENOSON TECHNETIUM-99M TETROFOSMIN SPECT CT IMAGING ORDERING PHYSICIAN: Luz Diaz APRN PRIMARY PHYSICIAN: Dr. Boyce. CLINICAL DIAGNOSIS: Coronary artery disease. Baseline images were carried out after injection of 10.64 mCi of technetium-99m Tetrofosmin. This was followed by 0.4 mg regadenoson and 29.8 mCi of technetium-99m Tetrofosmin for stress imaging. The electrocardiogram showed sinus rhythm and a paced ventricular rhythm. The electrocardiogram did not change significantly with regadenoson infusion. The patient tolerated the procedure well. Review of images at rest and following stress indicates an apical perfusion defect and apical hypokinesis to akinesis. There is also mild global hypokinesis. Left ventricular ejection fraction is calculated to be 26%. Left ventricular end-diastolic volume 144 mL. TID is absent (1.16). CONCLUSIONS: 1. Apical infarction without significant ischemia. 2. Apical akinesis and global hypokinesis. 3. Left ventricular ejection fraction 26%. 4. Moderate cardiomegaly. Job ID: [id number] DocumentID: [id number] Dictated Date: 05/16/2021 15:14:19 General Ophthalmologist Date: 05/16/2021 17:41:35 Dictated By: ABRAHAM YU MD, MA, FACP, FACC, MTDD
== END ==
LOC: CARD 07:30
PROVIDERS: ATTEND Nurse Practitioner Family
DX: I25.10 Atherosclerotic heart disease of native coronary artery without angina pectoris (principal); I51.7 Cardiomegaly
CPT/HCPCS: 78452; 93017; A9502

== ENCOUNTER → 2021-09-25 | Outpatient (CLI) | payer MEDICARE, OTHER ==
[~2021-09-25] MED LIST changes: -CATHETER FLUSH 10 ML SYR IV PRN; -REGADENOSON 0.4 MG/5 ML SYR (LEXISCAN) IV ONE
--- NOTE | 2021-09-25 08:08 | Diagnostic Imaging Report ---
PROCEDURE: CT head without contrast. TECHNIQUE: Multiple contiguous axial images were obtained through the brain without the use of intravenous contrast. Auto Exposure Controls were utilized during the CT exam to meet ALARA standards for radiation dose reduction. INDICATION: Headache. FINDINGS: There is prominence of the ventricles and sulci. There is chronic microvascular ischemic disease. There is chronic encephalomalacia in the left frontal lobe compatible with prior CVA. There is no hydrocephalus. There is no midline shift. There is no mass, hemorrhage or extra-axial fluid collection. Sinuses and mastoid air cells are clear. IMPRESSION: Chronic encephalomalacia in the left frontal lobe. Atrophy and chronic microvascular ischemic disease. Dictated by: Dictated on workstation # [id number]
== END ==
LOC: RAD 07:45
PROVIDERS: ATTEND Nurse Practitioner Family
DX: G93.89 Other specified disorders of brain (principal); I67.82 Cerebral ischemia; R26.9 Unspecified abnormalities of gait and mobility; I65.29 Occlusion and stenosis of unspecified carotid artery; I25.10 Atherosclerotic heart disease of native coronary artery without angina pectoris
CPT/HCPCS: 70450

== ENCOUNTER 2021-10-14 19:11 | Emergency (ER) | payer MEDICARE, OTHER ==
[~2021-10-14] VITALS: Ht 178 cm; Wt 110.0 kg
--- NOTE | 2021-10-14 20:09 | ED General ---
General Chief Complaint: Dizziness/Syncope Stated Complaint: LIGHTHEADED Nursing Triage Note: c/o feeling lightheaded after dinner approx. 1830. sx improved now. (HERMILO PIERRE) History of Present Illness Date Seen by Provider: Oct 14, 2021 Time Seen by Provider: 19:15 Initial Comments 71-year-old male presents after 2 episodes of becoming lightheaded at approximately 1800 tonight. Symptoms are not present in ED. He denies a history of hypotension, palpitations, hypoglycemia or hyperglycemia, but reports feeling this way intermittently. He has episodes of diarrhea or urgency to pass BM after eating, to the point that he alters when he eats and assuring he is home. Denies ever having colonoscopy. He has an implanted defibrillator/pacemaker. He sees Dr. Birmingham for cardiology, will be seeing him soon. Had CT head recently and Dr. Gomez's office reported it showed no abnormalities. He was active today, doing outside yard work but nothing he felt was strenuous. He drank a Pepsi about 1:30. He tried to check his B/P while feeling lightheaded but the machine didn't work. reports his face becomes red, but he isn't diaphoretic or nauseated. Timing/Duration: 1-3 Hours Severity: Mild Associated Systoms: No Chest Pain, No Cough, No Diaphoresis, No Fever/Chills, No Headaches, No Loss of Appetite, No Malaise, No Nausea/Vomiting, No Rash, No Seizure, No Shortness of Air; Syncope; No Weakness (HERMILO PIERRE) Allergies and Home Medications Allergies Coded Allergies: No Known Drug Allergies (Unverified , 07/24/18) Patient Home Medication List Home Medication List Reviewed: Yes (HERMILO PIERRE) Allopurinol (Allopurinol) 300 Mg Tablet, 300 MG PO DAILY, (Reported) Entered as Reported by: GILDARDO LIRA on 01/12/19 1054 Aspirin (Aspir 81) 81 Mg Tablet.dr, 81 MG PO DAILY, (Reported) Entered as Reported by: PHILIPPE CABAN on 05/24/16 0746 Carvedilol (Carvedilol) 6.25 Mg Tablet, 6.25 MG PO BID, (Reported) Entered as Reported by: GILDARDO LIRA on 01/12/19 1054 Clopidogrel Bisulfate (Clopidogrel) 75 Mg Tablet, 75 MG PO DAILY, (Reported) Entered as Reported by: PHILIPPE CABAN on 05/24/16 0746 Digoxin (Digox) 125 Mcg Tablet, (Reported) Entered as Reported by: ARSH MCCORMICK on 03/11/172015 Furosemide (Furosemide) 40 Mg Tablet, 40 MG PO DAILY, (Reported) Entered as Reported by: GILDARDO LIRA on 01/12/19 1054 Naproxen (Naproxen) 500 Mg Tablet, 500 MG PO BID PRN for PAIN-MODERATE TO SEVERE Prescribed by: SHIVA DECKER on 11/27/17 172 Tadalafil (Cialis) 5 Mg Tablet, (Reported) Entered as Reported by: ARSH MCCORMICK on 03/11/172015 Valsartan (Valsartan) 80 Mg Tablet, 80 MG PO DAILY, (Reported) Entered as Reported by: GILDARDO LIRA on 01/12/19 1054 Review of Systems Review of Systems Constitutional: no symptoms reported, see HPI Respiratory: no symptoms reported, see HPI Cardiovascular: see HPI; No chest pain; syncope Gastrointestinal: see HPI; No abdominal pain; diarrhea; No loss of appetite, No nausea, No vomiting (HERMILO PIERRE) All Other Systems Reviewed Negative Unless Noted: Yes (HERMILO PIERRE) Past Uasiqtk-Okysml-Zpymuu Hx Patient Social History Tobacco Use?: No Substance use?: No Alcohol Use?: No Pt feels they are or have been: No (HERMILO PIERRE) Immunizations Up To Date Tetanus Booster (TDap): Less than 5yrs (HERMILO PIERRE) Seasonal Allergies Seasonal Allergies: No (HERMILO PIERRE) Past Medical History Surgery/Hospitalization HX: cardiac cath, cabg x4, ortho, egd, ppm/aicd, cad, high cholesterol, htn, pvd, renal stones, gerd, ch back pain, gout Surgeries: No (CAROTID, CARDIAC CATH--NO STENTS, CABGx4, R WRIST,EGD, ppm/aicd, LEFT ELBOW) CABG, Defibrillator, Orthopedic Respiratory: Yes COPD Currently Using CPAP: No Cardiac: Yes (SVT, ATRIAL FLUTTER HX) Cardiomyopathy, Coronary Artery Disease, High Cholesterol, Hypertension Neurological: Yes TIA Reproductive Disorders: No Sexually Transmitted Disease: No HIV/AIDS: No Genitourinary: Yes Kidney Stones Gastrointestinal: Yes Gastroesophageal Reflux Musculoskeletal: Yes Fractures, Gout Endocrine: No HEENT: Yes (GLASSES) Loss of Vision: Bilateral Hearing Impairment: Deaf Cancer: No Psychosocial: No Anxiety Integumentary: No Blood Disorders: No Adverse Reaction/Blood Tranf: No (HERMILO PIERRE ANGELICA) Family Medical History Reviewed Nursing Family Hx (HERMILO PIERREP) Cancer 03 FATHER (lung ca passed at 65) History of - disorder 03 MOTHER ( from complication of surgery with staph infection) Kidney disease 09 SISTER ( from severe uti at age 54) Physical Exam Vital Signs Vital Signs - First Documented 10/14/21 19:15 Temp 36.8 Pulse 71 Resp 16 B/P (MAP) 146/94 (111) Pulse Ox 95 O2 Delivery Room Air (JEFF,KARLEY K DO) Vital Signs Capillary Refill : Less Than 3 Seconds (HERMILO PIERRE) Height, Weight, BMI Height: 5'10.00" Weight: 222lbs. 0.0oz. 100.005435ot; 34.00 BMI Method:Stated General Appearance: No Apparent Distress, WD/WN HEENT: PERRL/EOMI, TMs Normal, Normal ENT Inspection, Pharynx Normal Neck: Full Range of Motion, Normal Inspection, Non Tender Respiratory: Chest Non Tender, Lungs Clear, Normal Breath Sounds Cardiovascular: Regular Rate, Rhythm, No Edema, No Gallop, No Murmur, Normal Peripheral Pulses Gastrointestinal: Normal Bowel Sounds, Non Tender, Soft Extremity: Normal Capillary Refill, Normal Inspection, Normal Range of Motion, Non Tender, No Calf Tenderness Neurologic/Psychiatric: Alert, Oriented x3, No Motor/Sensory Deficits, Normal Mood/Affect (IGNACIOHERMILO DOMINGUEZ) Progress/Results/Core Measures Suspected Sepsis SIRS Temperature: Pulse: 71 Respiratory Rate: 16 Laboratory Tests 10/14/21 20:15: White Blood Count 10.4 Blood Pressure 146 /94 Mean: 111 Laboratory Tests 10/14/21 20:15: Creatinine 1.25, INR Comment 0.9, Platelet Count 185, Total Bilirubin 0.8 (HERMILO PIERRE ANGELICA) Results/Orders Lab Results Laboratory Tests Test 10/14/21 19:42 10/14/21 20:15 Range/Units Glucometer 139 H 70-110 MG/DL White Blood Count 10.4 4.3-11.0 10^3/uL Red Blood Count 4.92 4.30-5.52 10^6/uL Hemoglobin 16.5 13.3-17.7 g/dL Hematocrit 46 40-54 % Mean Corpuscular Volume 94 80-99 fL Mean Corpuscular Hemoglobin 34 25-34 pg Mean Corpuscular Hemoglobin Concent 36 32-36 g/dL Red Cell Distribution Width 13.6 10.0-14.5 % Platelet Count 185 130-400 10^3/uL Mean Platelet Volume 10.6 9.0-12.2 fL Immature Granulocyte % (Auto) 0 % Neutrophils (%) (Auto) 73 42-75 % Lymphocytes (%) (Auto) 18 12-44 % Monocytes (%) (Auto) 6 0-12 % Eosinophils (%) (Auto) 2 0-10 % Basophils (%) (Auto) 1 0-10 % Neutrophils # (Auto) 7.6 1.8-7.8 10^3/uL Lymphocytes # (Auto) 1.8 1.0-4.0 10^3/uL Monocytes # (Auto) 0.7 0.0-1.0 10^3/uL Eosinophils # (Auto) 0.2 0.0-0.3 10^3/uL Basophils # (Auto) 0.1 0.0-0.1 10^3/uL Immature Granulocyte # (Auto) 0.0 0.0-0.1 10^3/uL Prothrombin Time 12.9 12.2-14.7 SEC INR Comment 0.9 0.8-1.4 Activated Partial Thromboplast Time 27 24-35 SEC Sodium Level 142 135-145 MMOL/L Potassium Level 3.6 3.6-5.0 MMOL/L Chloride Level 106 98-107 MMOL/L Carbon Dioxide Level 20 L 21-32 MMOL/L Anion Gap 16 H 5-14 MMOL/L Blood Urea Nitrogen 12 7-18 MG/DL Creatinine 1.25 0.60-1.30 MG/DL Estimat Glomerular Filtration Rate 62 BUN/Creatinine Ratio 10 Glucose Level 151 H 70-105 MG/DL Calcium Level 9.4 8.5-10.1 MG/DL Corrected Calcium 9.2 8.5-10.1 MG/DL Magnesium Level 2.1 1.6-2.4 MG/DL Total Bilirubin 0.8 0.1-1.0 MG/DL Aspartate Amino Transf (AST/SGOT) 16 5-34 U/L Alanine Aminotransferase (ALT/SGPT) 17 0-55 U/L Alkaline Phosphatase 74 40-136 U/L Myoglobin 131.9 H 10.0-92.0 NG/ML Troponin I < 0.028 <0.028 NG/ML Total Protein 6.9 6.4-8.2 GM/DL Albumin 4.3 3.2-4.5 GM/DL (KARLEY AGUILAR DO) Vital Signs/I&O 10/14/21 10/14/21 19:15 21:18 Temp 36.8 36.5 Pulse 71 64 Resp 16 16 B/P (MAP) 146/94 (111) 160/95 Pulse Ox 95 96 O2 Delivery Room Air Room Air (KARLEY AGUILAR DO) Vital Signs/I&O Capillary Refill : Less Than 3 Seconds (HERMILO PIERRE) Blood Pressure Mean: 111 Point of Care Testing Finger Stick Blood Glucose: 139 (HERMILO PIERRE) Progress Note : Time: 19:15 Progress Note Patient seen and evaluated, discussed options and care, he is agreeable to having labs and EKG. He takes aspirin 81 mg daily. 2004 labs all essentially normal, EKG showed no ST elevation. Patient denies any continuation of symptoms. (HERMILO PIERRE) ECG Initial ECG Impression Date: Oct 14, 2021 Initial ECG Impression Time: 20:05 Initial ECG Rate: 71 Initial ECG Rhythm: Normal Sinus Initial ECG Intervals: Normal Initial ECG Intervals DE 163, QRSD 190, QT 472. QTc 513. [place] P1 17, QRS 124, T- 47. Initial ECG Impression: Normal Initial ECG Comparisson: Unchanged Comment No ST elevation (HERMILO PIERRE) Departure Impression Primary Impression: Syncope Qualified Codes: R55 - Syncope and collapse Disposition: 01 HOME, SELF-CARE Condition: Improved Departure-Patient Inst. Decision time for Depature: 21:10 (HERMILO PIERRE) Referrals: DENY GOMEZ MD (PCP/Family) Primary Care Physician Patient Instructions: Syncope (Fainting) (DC) Add. Discharge Instructions: Schedule appt with General Surgery or GI doctor for colonoscopy. Follow up with Dr. Hernandez. Eat small frequent meals. Obtain new Blood Pressure cuff and monitor, if symptoms occur. Continue home medications. Return to Emergency Dept for new, urgent health care needs. All discharge instructions reviewed with patient and/or family. Voiced understanding. ATTENDING PHYSICIAN NOTE: I WAS PHYSICALLY PRESENT ER PHYSICIAN, BUT I WAS NOT INVOLVED IN ANY DECISION MAKING OR ANY CARE OF THIS PATIENT. (KARLEY AGUILAR DO) Copy Copies To 1: DENY GOMEZ MD, AMY ARNP Oct 14, 2021 20:09 KARLEY AGUILAR DO Oct 15, 2021 01:57
[2021-10-14 20:34] LABS: ALBUMIN 4.3 GM/DL (3.2-4.5)
[2021-10-14 20:35] LABS: POTASSIUM 3.6 MMOL/L (3.6-5.0)
[2021-10-14 20:36] LABS: CALCIUM 9.4 MG/DL (8.5-10.1)
[2021-10-14 20:37] LABS: TOTAL PROTEIN 6.9 GM/DL (6.4-8.2)
[2021-10-14 20:39] LABS: BILIRUBIN,TOTAL 0.8 MG/DL (0.1-1.0)
[2021-10-14 20:41] LABS: CREATININE SERUM 1.25 MG/DL (0.60-1.30)
[2021-10-14 20:43] LABS: MAGNESIUM 2.1 MG/DL (1.6-2.4)
[2021-10-14 20:49] LABS: BASOPHILS # (AUTO) 0.1 10^3/uL (0.0-0.1); BASOPHILS % (AUTO) 1 % (0-10); EOSINOPHILS # (AUTO) 0.2 10^3/uL (0.0-0.3); EOSINOPHILS % (AUTO) 2 % (0-10); HEMATOCRIT 46 % (40-54); HEMOGLOBIN 16.5 g/dL (13.3-17.7); LYMPHOCYTES # (AUTO) 1.8 10^3/uL (1.0-4.0); LYMPHOCYTES % (AUTO) 18 % (12-44); MEAN CORPUSCULAR HEMOGLOBIN 34 pg (25-34); MEAN CORPUSCULAR HGB CONC 36 g/dL (32-36); MEAN CORPUSCULAR VOLUME 94 fL (80-99); MEAN PLATELET VOLUME 10.6 fL (9.0-12.2); MONOCYTES # (AUTO) 0.7 10^3/uL (0.0-1.0); MONOCYTES % (AUTO) 6 % (0-12); NEUTROPHILS # (AUTO) 7.6 10^3/uL (1.8-7.8); NEUTROPHILS % (AUTO) 73 % (42-75); PLATELET COUNT 185 10^3/uL (130-400); WHITE BLOOD COUNT 10.4 10^3/uL (4.3-11.0)
[2021-10-14 20:55] LABS: INR 0.9 (0.8-1.4); PROTHROMBIN TIME PATIENT 12.9 SEC (12.2-14.7)
[2021-10-14 21:18] VITALS: BP 160/95
== END 2021-10-14 21:21 | disposition home or self-care (01) ==
LOC: EDUNIT# 19:11 → ER 19:13
DX: R55 Syncope and collapse (principal)
CPT/HCPCS: 36415; 80053; 82947; 83735; 83874; 84484; 85025; 85610; 85730; 93005

== ENCOUNTER 2021-10-31 18:55 | Emergency (ER) | payer MEDICARE, OTHER ==
[2021-10-31 19:42] LABS: BASOPHILS # (AUTO) 0.1 10^3/uL (0.0-0.1); BASOPHILS % (AUTO) 1 % (0-10); EOSINOPHILS # (AUTO) 0.2 10^3/uL (0.0-0.3); EOSINOPHILS % (AUTO) 2 % (0-10); HEMATOCRIT 48 % (40-54); HEMOGLOBIN 16.9 g/dL (13.3-17.7); LYMPHOCYTES # (AUTO) 2.4 10^3/uL (1.0-4.0); LYMPHOCYTES % (AUTO) 23 % (12-44); MEAN CORPUSCULAR HEMOGLOBIN 33 pg (25-34); MEAN CORPUSCULAR HGB CONC 35 g/dL (32-36); MEAN CORPUSCULAR VOLUME 95 fL (80-99); MEAN PLATELET VOLUME 10.4 fL (9.0-12.2); MONOCYTES # (AUTO) 0.7 10^3/uL (0.0-1.0); MONOCYTES % (AUTO) 7 % (0-12); NEUTROPHILS # (AUTO) 6.8 10^3/uL (1.8-7.8); NEUTROPHILS % (AUTO) 67 % (42-75); PLATELET COUNT 176 10^3/uL (130-400); WHITE BLOOD COUNT 10.2 10^3/uL (4.3-11.0)
[2021-10-31 20:00] LABS: ALBUMIN 4.4 GM/DL (3.2-4.5); CHLORIDE 106 MMOL/L (98-107); POTASSIUM 3.5 MMOL/L (3.6-5.0); SODIUM 143 MMOL/L (135-145)
[2021-10-31 20:01] LABS: CALCIUM 9.6 MG/DL (8.5-10.1)
[2021-10-31 20:02] LABS: GLUCOSE 138 MG/DL (70-105); TOTAL PROTEIN 7.3 GM/DL (6.4-8.2)
[2021-10-31 20:03] LABS: CARBON DIOXIDE 21 MMOL/L (21-32)
[2021-10-31 20:04] LABS: BILIRUBIN,TOTAL 1.4 MG/DL (0.1-1.0)
[2021-10-31 20:06] LABS: ALKALINE PHOSPHATASE 73 U/L (40-136); CREATININE SERUM 1.56 MG/DL (0.60-1.30); GFR ESTIMATED 48
[2021-10-31 20:07] LABS: BUN/CREATININE RATIO 13
[2021-10-31 20:09] LABS: ALANINE AMINOTRANSFERASE 15 U/L (0-55)
--- NOTE | 2021-10-31 21:07 | Diagnostic Imaging Report ---
CLINICAL INDICATION: Patient with right hand numbness for 20 minutes. Patient has elevated blood pressure. EXAM: Axial CT scan of the brain performed without IV contrast. High-resolution axial CT brain images with sagittal and coronal reformations were also created. Auto Exposure Controls were utilized during the CT exam to meet ALARA standards for radiation dose reduction. COMPARISON: Head CT without contrast dated 09/25/2021. FINDINGS: There is no dense vessel sign. There is no CT evidence of interval acute cerebral infarct, intracranial hemorrhage, brain herniation or midline shift. Stable small to moderate-sized chronic infarct involving the left frontal lobe. Stable small chronic infarct involving the left caudate. There are small patchy areas of low density involving the white matter of both cerebral hemispheres, likely representing chronic small vessel ischemic disease. The brain parenchymal volume appears appropriate for patient's age. There is no hydrocephalus, brain herniation or midline shift. The extracranial soft tissues, skull, and orbits are unremarkable. There is mild mucosal thickening involving the sphenoid sinus. IMPRESSION: 1: Stable CT scan of the brain with no evidence of acute intracranial process. There is no dense vessel sign. 2: Stable chronic infarct involving the left frontal lobe. Results of this report were discussed with Dr. Yadav via the telephone on 10/31/2021 at 2102 hours. Dictated by: Dictated on workstation # [id number]
--- NOTE | 2021-10-31 21:14 | Diagnostic Imaging Report ---
CLINICAL INDICATION: Patient with right hand/arm numbness x20 minutes. Patient has hypertension. EXAM: Axial CT scan of the cervical spine performed without IV contrast. Sagittal and coronal reformatted images were created. Auto Exposure Controls were utilized during the CT exam to meet ALARA standards for radiation dose reduction. COMPARISON: None. FINDINGS: There is no evidence of acute cervical spine fracture or dislocation. There are hypertrophic spurs throughout the cervical spine and facet arthropathy. C1-C2: Unremarkable. C2-C3: There is no significant central canal or neuroforaminal narrowing. C3-C4: There is the appearance of a diffuse disk bulge and mild facet arthropathy. There is no significant neuroforaminal narrowing. There is at least mild to moderate central canal narrowing. C4-C5: There is mild bilateral facet arthropathy. There are small left uncinate spurs. There is moderate left neuroforaminal narrowing. There is no significant right neural foramen narrowing. There is no significant bony central canal narrowing. There is moderate loss of disk space height. C5-C6: There is a diffuse disk bulge with moderate to severe loss of disk space height. There are bilateral uncinate spurs. There is severe bilateral neuroforaminal narrowing. There is at least mild to moderate central canal narrowing. C6-C7: There is mild bilateral facet arthropathy. There is at least mild bilateral neuroforaminal narrowing. There is no significant central canal narrowing. C7-T1: Unremarkable. IMPRESSION: 1: There is cervical spine degenerative disease with no acute fracture or dislocation. 2: There is significant cervical spine degenerative disease at the C5-C6 level with diffuse disk bulge and uncinate spurs. There is severe bilateral neuroforaminal narrowing and at least mild to moderate central canal stenosis. Nonemergent MRI of the cervical spine would better evaluate. Dictated by: Dictated on workstation # [id number]
--- NOTE | 2021-10-31 21:18 | Diagnostic Imaging Report ---
CLINICAL INDICATION: Patient with right hand numbness. EXAM: Portable chest x-ray upright view. COMPARISON: Chest x-ray dated 07/03/2015. FINDINGS: Lungs/pleura: Lungs are clear. There is no pneumothorax. There is no pleural effusion. Mediastinum: Unremarkable. Pulmonary vasculature: Unremarkable. Heart: Stable cardiomegaly. There is interval placement of a cardiac pacemaker/AICD overlying the left chest with leads projecting over the heart. Stable postoperative changes to the chest with sternotomy wires. Bones/extrathoracic soft tissue: There are degenerative spurs involving the thoracic spine. IMPRESSION: There is no radiographic evidence of acute cardiopulmonary process. Dictated by: Dictated on workstation # [id number]
[2021-10-31 21:28] LABS: PROTHROMBIN TIME PATIENT 13.2 SEC (12.2-14.7)
[2021-10-31 21:36] LABS: FIBRIN DEGRADATION PRODUCTS 0.8 UG/ML (0.00-0.49)
[2021-10-31 21:57] LABS: BILIRUBIN,URINE NEGATIVE (NEGATIVE); CLARITY,URINE CLEAR; GLUCOSE, URINE (UA) NEGATIVE (NEGATIVE); KETONES,URINE NEGATIVE (NEGATIVE); LEUKOCYTE ESTERASE ,URINE NEGATIVE (NEGATIVE); NITRITE,URINE NEGATIVE (NEGATIVE); PH,URINE 5.5 (5-9); PROTEIN,URINE TRACE (NEGATIVE)
[2021-10-31 22:01] LABS: COLOR,URINE YELLOW
[2021-10-31 22:04] LABS: BACTERIA,URINE TRACE /HPF; WBC,URINE RARE /HPF
[2021-10-31] MEDS ORDERED: CATHETER FLUSH 10 ML SYR IV PRN (23:45)
[2021-10-31] MEDS ORDERED: NS 100 ML (IVPB) BAG IV ONE (23:45)
[2021-10-31] MEDS ORDERED: IOHEXOL 350 MG/ML 100 ML (OMNIPAQUE 350) VIAL IV ONE (23:45)
--- NOTE | 2021-11-01 01:18 | ED Cardiac General ---
History of Present Illness General Chief Complaint: Cardiac/General Problems Stated Complaint: RIGHT NUMB Nursing Triage Note: PT AMB TO RM 2 WITH WITH C/O R HAND AND ARM NUMBNESS THAT STARTED THIS AFTERNOON WHILE AT WORK AND HTN History of Present Illness Date Seen by Provider: October 31, 2021 Time Seen by Provider: 19:20 Initial Comments 71-year-old male with PMH of pacemaker/CAD/CVA/CABG/gout, is here with complaints of right hand tingling and numbness which began around 4:30 PM today. Patient has no other symptoms or complaints. Patient is able to ambulate and move his upper extremities without any issues. Patient states the tingling and numbness is mainly in 4 of his fingers only. Patient states that when he had a stroke last time these were the same symptoms he had at that time as well that is why he came to the ER. It does not radiate. Denies falls, injuries, neck pain or neck stiffness, chest pain, LOC, falls, weakness. Allergies and Home Medications Allergies Coded Allergies: No Known Drug Allergies (Unverified , 07/24/18) Patient Home Medication List Home Medication List Reviewed: Yes Allopurinol (Allopurinol) 300 Mg Tablet, 300 MG PO DAILY, (Reported) Entered as Reported by: GILDARDO LIRA on 01/12/19 1054 Aspirin (Aspir 81) 81 Mg Tablet.dr, 81 MG PO DAILY, (Reported) Entered as Reported by: PHILIPPE CABAN on 05/24/16 0746 Carvedilol (Carvedilol) 6.25 Mg Tablet, 6.25 MG PO BID, (Reported) Entered as Reported by: GILDARDO LIRA on 01/12/19 1054 Clopidogrel Bisulfate (Clopidogrel) 75 Mg Tablet, 75 MG PO DAILY, (Reported) Entered as Reported by: PHILIPPE CABAN on 05/24/16 0746 Digoxin (Digox) 125 Mcg Tablet, (Reported) Entered as Reported by: ARSH MCCORMICK on 03/11/172015 Furosemide (Furosemide) 40 Mg Tablet, 40 MG PO DAILY, (Reported) Entered as Reported by: GILDARDO ILRA on 01/12/19 1054 Naproxen (Naproxen) 500 Mg Tablet, 500 MG PO BID PRN for PAIN-MODERATE TO SEVERE Prescribed by: SHIVA DECKER on 11/27/17 1726 Tadalafil (Cialis) 5 Mg Tablet, (Reported) Entered as Reported by: ARSH MCCORMICK on 03/11/172015 Valsartan (Valsartan) 80 Mg Tablet, 80 MG PO DAILY, (Reported) Entered as Reported by: GILDARDO LIRA on 01/12/19 1054 Review of Systems Review of Systems Constitutional: no symptoms reported EENTM: No Symptoms Reported Respiratory: No Symptoms Reported Cardiovascular: No Symptoms Reported Gastrointestinal: No Symptoms Reported Genitourinary: No Symptoms Reported Musculoskeletal: no symptoms reported Skin: no symptoms reported Psychiatric/Neurological: Numbness, Tingling Endocrine: No Symptoms Reported Hematologic/Lymphatic: No Symptoms Reported Past Qriwkcm-Nlbadf-Sgzgti Hx Patient Social History Tobacco Use?: No Substance use?: No Alcohol Use?: No Pt feels they are or have been: No Immunizations Up To Date Tetanus Booster (TDap): Less than 5yrs Influenza Vaccine Up-to-Date: No; Not Current Seasonal Allergies Seasonal Allergies: No Past Medical History Surgery/Hospitalization HX: cardiac cath, cabg x4, ortho, egd, ppm/aicd, cad, high cholesterol, htn, pvd, renal stones, gerd, ch back pain, gout Surgeries: No (CAROTID, CARDIAC CATH--NO STENTS, CABGx4, R WRIST,EGD, ppm/aicd, LEFT ELBOW) CABG, Defibrillator, Orthopedic Respiratory: Yes COPD Currently Using CPAP: No Cardiac: Yes (SVT, ATRIAL FLUTTER HX) Cardiomyopathy, Coronary Artery Disease, High Cholesterol, Hypertension Neurological: Yes TIA Reproductive Disorders: No Sexually Transmitted Disease: No HIV/AIDS: No Genitourinary: Yes Kidney Stones Gastrointestinal: Yes Gastroesophageal Reflux Musculoskeletal: Yes Fractures, Gout Endocrine: No HEENT: Yes (GLASSES) Loss of Vision: Bilateral Hearing Impairment: Deaf Cancer: No Psychosocial: No Anxiety Integumentary: No Blood Disorders: No Adverse Reaction/Blood Tranf: No Family Medical History Cancer 03 FATHER (lung ca passed at 65) History of - disorder 03 MOTHER ( from complication of surgery with staph infection) Kidney disease 09 SISTER ( from severe uti at age 54) Physical Exam Vital Signs Vital Signs - First Documented 10/31/21 11/01/21 19:10 01:22 Temp 36.0 Pulse 67 Resp 18 B/P (MAP) 170/103 (125) Pulse Ox 97 O2 Delivery Room Air Capillary Refill : Height, Weight, BMI Height: 5'10.00" Weight: 222lbs. 0.0oz. 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 Norm as Tested Skin: Normal Color Lymphatic: No Adenopathy Progress/Results/Core Measures Results/Orders Lab Results Laboratory Tests Test 10/31/21 19:34 10/31/21 21:45 10/31/21 23:45 Range/Units White Blood Count 10.2 4.3-11.0 10^3/uL Red Blood Count 5.07 4.30-5.52 10^6/uL Hemoglobin 16.9 13.3-17.7 g/dL Hematocrit 48 40-54 % Mean Corpuscular Volume 95 80-99 fL Mean Corpuscular Hemoglobin 33 25-34 pg Mean Corpuscular Hemoglobin Concent 35 32-36 g/dL Red Cell Distribution Width 13.8 10.0-14.5 % Platelet Count 176 130-400 10^3/uL Mean Platelet Volume 10.4 9.0-12.2 fL Immature Granulocyte % (Auto) 0 % Neutrophils (%) (Auto) 67 42-75 % Lymphocytes (%) (Auto) 23 12-44 % Monocytes (%) (Auto) 7 0-12 % Eosinophils (%) (Auto) 2 0-10 % Basophils (%) (Auto) 1 0-10 % Neutrophils # (Auto) 6.8 1.8-7.8 10^3/uL Lymphocytes # (Auto) 2.4 1.0-4.0 10^3/uL Monocytes # (Auto) 0.7 0.0-1.0 10^3/uL Eosinophils # (Auto) 0.2 0.0-0.3 10^3/uL Basophils # (Auto) 0.1 0.0-0.1 10^3/uL Immature Granulocyte # (Auto) 0.0 0.0-0.1 10^3/uL Prothrombin Time 13.2 12.2-14.7 SEC INR Comment 1.0 0.8-1.4 Activated Partial Thromboplast Time 25 24-35 SEC D-Dimer 0.80 H 0.00-0.49 UG/ML Sodium Level 143 135-145 MMOL/L Potassium Level 3.5 L 3.6-5.0 MMOL/L Chloride Level 106 98-107 MMOL/L Carbon Dioxide Level 21 21-32 MMOL/L Anion Gap 16 H 5-14 MMOL/L Blood Urea Nitrogen 21 H 7-18 MG/DL Creatinine 1.56 H 0.60-1.30 MG/DL Estimat Glomerular Filtration Rate 48 BUN/Creatinine Ratio 13 Glucose Level 138 H 70-105 MG/DL Calcium Level 9.6 8.5-10.1 MG/DL Corrected Calcium 9.3 8.5-10.1 MG/DL Total Bilirubin 1.4 H 0.1-1.0 MG/DL Aspartate Amino Transf (AST/SGOT) 15 5-34 U/L Alanine Aminotransferase (ALT/SGPT) 15 0-55 U/L Alkaline Phosphatase 73 40-136 U/L Troponin I < 0.028 < 0.028 <0.028 NG/ML Total Protein 7.3 6.4-8.2 GM/DL Albumin 4.4 3.2-4.5 GM/DL Urine Color YELLOW Urine Clarity CLEAR Urine pH 5.5 5-9 Urine Specific [place] >=1.030 1.016-1.022 Urine Protein TRACE H NEGATIVE Urine Glucose (UA) NEGATIVE NEGATIVE Urine Ketones NEGATIVE NEGATIVE Urine Nitrite NEGATIVE NEGATIVE Urine Bilirubin NEGATIVE NEGATIVE Urine Urobilinogen 0.2 < = 1.0 MG/DL Urine Leukocyte Esterase NEGATIVE NEGATIVE Urine RBC (Auto) NEGATIVE NEGATIVE Urine RBC NONE /HPF Urine WBC RARE /HPF Urine Squamous Epithelial Cells NONE /HPF Urine Crystals NONE /LPF Urine Bacteria TRACE /HPF Urine Casts PRESENT /LPF Urine Hyaline Casts 2-5 H /LPF Urine Mucus SMALL H /LPF Urine Culture Indicated NO My Orders Orders - ROSIE DIAZ MD Cbc With Automated Diff (10/31/21 19:30) Protime With Inr (10/31/21 19:30) Partial Thromboplastin Time (10/31/21 19:30) Comprehensive Metabolic Panel (10/31/21 19:30) Fibrin Degradation Products (10/31/21 19:30) Troponin I [place] (10/31/21:30) Ua Culture If Indicated (10/31/21:30) Chest 1 View, Ap/Pa Only (10/31/21 19:30) Ekg Tracing (10/31/21:30) Nothing By Mouth (10/31/21 Dinner) Ed Iv/Invasive Line Start (10/31/21 19:30) Vital Signs Stroke Patient Q15M (10/31/21 19:30) Ct Head Wo-R/O Stroke (10/31/21 19:30) O2 (10/31/21:30) Intake & Output 06,14,22 (10/31/21 19:30) Monitor-Rhythm Ecg Trace Only (10/31/21:30) Dysphagia Screening Tool Q10MX1 (10/31/21 19:30) Ct Cervical Spine Wo (10/31/21 19:30) Ct Angio Chest W (10/31/21 23:30) Troponin I [place] (10/31/21 23:31) Iohexol Injection (Omnipaque 350 Mg/Ml 1 (10/31/21 23:45) Sodium Chloride Flush (Catheter Flush Sy (10/31/21 23:45) Ns (Ivpb) (Sodium Chloride 0.9% Ivpb Bag (10/31/21 23:45) Medications Given in ED Current Medications Medications Dose Ordered Sig/Filipe Route Start Time Stop Time Status Last Admin Dose Admin Iohexol 100 ml ONCE ONCE IV 10/31/21 23:45 10/31/21 23:46 DC 10/31/21 23:53 90 ML Sodium Chloride 10 ml NEEDED PRN IV 10/31/21 23:45 11/01/21 01:26 DC 10/31/21 23:53 10 ML Sodium Chloride 100 ml ONCE ONCE IV 10/31/21 23:45 10/31/21 23:46 DC 10/31/21 23:53 80 ML Vital Signs/I&O 10/31/21 11/01/21 19:10 01:22 Temp 36.0 36.0 Pulse 67 67 Resp 18 16 B/P (MAP) 170/103 (125) 180/104 Pulse Ox 97 O2 Delivery Room Air Blood Pressure Mean: 125 Progress Progress Note : Progress Note 1. TIA vs PERIPHERAL NEUROPATHY OF HAND: HI RULED OUT - Hand tingling and numbness which resolved - CT HEAD: chronic stable old left frontal lobe infarct - Labs unremarkable, trop x2 normal - EKG no acute findings -Follow-up with PCP within the next 3 days -Follow-up with cardiology. Patient already has an appointment -The patient was seen in the ED, and treated appropriately to presentation at a specific point in time. Patient is informed that there is a possibility that dis ease and illness can evolve and change in acuity rapidly or slowly after patient is discharged from the ER. Precautionary advice given to the patient for immediate return to ER if symptoms worsen or do not resolve, and to seek emergency care sooner rather than later. Pt also advised on the importance of PCP follow up and compliance with management and follow up plan with PCP and/or specialist, as this is part of the management plan. Pt verbally expressed understanding. - Pt will need carotid artery u/s doppler in the next couple of days Initial ECG Impression Date: October 31, 2021 Initial ECG Impression Time: 19:42 Initial ECG Rate: 65 Initial ECG Rhythm: Normal Sinus (paced) Initial ECG Intervals: Normal Departure Impression Primary Impression: TIA (transient ischemic attack) Additional Impressions: Peripheral neuropathy Qualified Codes: G62.9 - Polyneuropathy, unspecified Ruled out for myocardial infarction Disposition: 01 HOME, SELF-CARE Condition: Improved Departure-Patient Inst. Referrals: DENY PECK MD (PCP/Family) Primary Care Physician Patient Instructions: Transient Ischemic Attack (DC), Peripheral Neuropathy (DC), Lowering the Risk of Having Another Stroke Add. Discharge Instructions: -Follow-up with PCP within the next 3 days -Follow-up with cardiology. Patient already has an appointment -The patient was seen in the ED, and treated appropriately to presentation at a specific point in time. Patient is informed that there is a possibility that disease and illness can evolve and change in acuity rapidly or slowly after patient is discharged from the ER. Precautionary advice given to the patient for immediate return to ER if symptoms worsen or do not resolve, and to seek emergency care sooner rather than later. Pt also advised on the importance of PCP follow up and compliance with management and follow up plan with PCP and/or specialist, as this is part of the management plan. Pt verbally expressed understanding. All discharge instructions reviewed with patient and/or family. Voiced understanding. ROSIE DIAZ MD November 01, 2021 01:18
[2021-11-01 01:22] VITALS: BP 180/104
--- NOTE | 2021-11-01 06:23 | Diagnostic Imaging Report ---
PROCEDURE: CT angiography of the chest with contrast. TECHNIQUE: Multiple contiguous axial images were obtained through the chest after uneventful bolus administration of intravenous contrast. 3D reconstructed CTA MIP acquisitions were also performed. Auto Exposure Controls were utilized during the CT exam to meet ALARA standards for radiation dose reduction. INDICATION: 71-year-old male chest pain, shortness of breath, right hand numbness. FINDINGS: There is no axillary adenopathy. There is also no hilar or mediastinal adenopathy. Cardiac contour is borderline enlarged. The contrast study was optimized by the pulmonary arteries. No significant contrast is seen in the aorta. Nonaneurysmal aortic calcifications are seen. The pulmonary outflow tract as well as the right and left pulmonary arteries, segmental and subsegmental branches are patent with no evidence of intraluminal thrombus to suggest a pulmonary embolism. Lungs are clear with no consolidation, effusion or pneumothorax. Limited assessment of the abdomen shows nonobstructing bilateral renal calculi. IMPRESSION: 1. Borderline cardiomegaly. 2. No CT angiographic evidence of aortic aneurysm or pulmonary embolism. There is no consolidation, effusion or pneumothorax. 3. Senescent chest and abdomen. There is nonobstructing bilateral renal calculi. 4. Bone windows show degenerative changes in the axial skeleton. There is diffuse idiopathic skeletal hyperostosis. Agree with [facility] report. Dictated by: Dictated on workstation # [id number]
== END 2021-11-01 01:26 | disposition home or self-care (01) ==
LOC: EDUNIT# 18:55 → ER 18:59
DX: G45.9 Transient cerebral ischemic attack, unspecified (principal); G62.9 Polyneuropathy, unspecified
CPT/HCPCS: 36415; 70450; 71045; 71275; 72125; 80053; 81000; 84484; 85025; 85379; 85610; 85730; 93005; 93041

== ENCOUNTER 2022-08-19 18:49 | Emergency (ER) | payer MEDICARE, OTHER ==
[2022-08-19] MEDS ORDERED: IOHEXOL 350 MG/ML 100 ML (OMNIPAQUE 350) VIAL IV ONE ×2 (19:00→19:15)
[2022-08-19] MEDS ORDERED: LIDOCAINE UROJET 2% GEL 10 ML PKG TOP ONE (19:00)
[2022-08-19] MEDS ORDERED: NS 100 ML (IVPB) BAG IV ONE ×2 (19:00→19:15)
--- NOTE | 2022-08-19 19:09 | Diagnostic Imaging Report ---
PROCEDURE: CT head w/o r/o stroke. TECHNIQUE: Multiple contiguous axial images were obtained through the brain without the use of intravenous contrast. Auto Exposure Controls were utilized during the CT exam to meet ALARA standards for radiation dose reduction. INDICATION: Stroke. Neurologic deficit. Right-sided facial weakness. Difficulty speaking. COMPARISON: CT head without contrast 09/25/2021. FINDINGS: Mild generalized parenchymal volume loss. Advanced leukoaraiosis. Chronic infarct in the left frontal lobe. Chronic infarct in the left caudate head. No intracranial hemorrhage, mass effect, hydrocephalus or extra-axial fluid collection. No CT evidence of an acute territorial infarction. Osseous structures are intact. Mild mucosal thickening in the right maxillary sinus. The mastoids are clear. IMPRESSION: 1. No acute intracranial CT finding. 2. Chronic infarct in the left frontal lobe and left caudate head. Findings discussed with Dr. Alex Liu at 7:03 PM on 08/19/2022. Dictated by: Dictated on workstation # [id number]
[2022-08-19] MEDS ORDERED: HOLD METFORMIN - RECEIVED CONTRAST 20 ML VIAL IV SCH (19:15)
--- NOTE | 2022-08-19 19:35 | Diagnostic Imaging Report ---
PROCEDURE: CT angiography of the head and CT angiography of the neck with and without contrast. TECHNIQUE: Contiguous noncontrast images were obtained from the skull base through the vertex. After intravenous contrast administration, helical CT angiography of the neck was performed. Source data was reformatted into 3D MIP projections. Delayed post contrast acquisition was also obtained. Auto Exposure Controls were utilized during the CT exam to meet ALARA standards for radiation dose reduction. INDICATION: Stroke. COMPARISON: CT head without contrast 08/19/2022 and 10/31/2021. FINDINGS: Postcontrast head CT continues to demonstrate chronic infarct in the left frontal lobe and left caudate head. There remains no evidence of a large territorial acute infarct or hemorrhage. No hydrocephalus or extra-axial fluid collection. No abnormal intracranial enhancement on the arterial phase images provided. CTA demonstrates a conventional aortic arch. Calcified atherosclerotic disease results in 90-99% narrowing of the right internal carotid artery origin. There is 50-69% narrowing of the left internal carotid artery origin. The basilar, bilateral vertebral, common carotid, anterior cerebral, middle cerebral and posterior cerebral arteries demonstrate no high-grade narrowing, aneurysm or dissection. The dural venous sinuses are normally opacified. Mild to moderate spondylotic changes in the cervical spine. No acute osseous finding. Partially visualized sternotomy. No acute finding in the visualized paravertebral soft tissue. Partially visualized cardiac pacer. Lung apices are clear. IMPRESSION: 1. No large vessel occlusion. 2. Atherosclerotic disease results in high-grade stenosis of the right internal carotid artery origin of 90-99%. 3. Narrowing of the left internal carotid artery origin of 50-69%. 4. No other high-grade narrowing, aneurysm or dissection involving major arteries in the head and neck. Findings discussed with Dr. Alex Liu at 7:27 PM on 08/19/2022. Dictated by: Dictated on workstation # [id number]
--- NOTE | 2022-08-19 19:36 | Diagnostic Imaging Report ---
EXAM: CT head perfusion w/contrast INDICATION: Stroke. COMPARISON: CTA head and neck and CT head without contrast 08/19/2022. CT head without contrast 10/31/2021. FINDINGS: CT perfusion demonstrates adequate arterial inflow peaks and no significant motion. Registered abnormal CBF and T-Max in the left frontal lobe corresponds to a chronic infarct. No other abnormal finding on the CT perfusion. IMPRESSION: No CT perfusion evidence of acute infarct or decreased perfusion. Findings discussed with Dr. Alex Liu at 7:27 PM on 08/19/2022. Dictated by: Dictated on workstation # [id number]
[2022-08-19 19:40] LABS: BASOPHILS # (AUTO) 0.1 10^3/uL (0.0-0.1); BASOPHILS % (AUTO) 1 % (0-10); EOSINOPHILS # (AUTO) 0.1 10^3/uL (0.0-0.3); EOSINOPHILS % (AUTO) 1 % (0-10); HEMATOCRIT 49 % (40-54); HEMOGLOBIN 16.9 g/dL (13.3-17.7); LYMPHOCYTES # (AUTO) 2.1 10^3/uL (1.0-4.0); LYMPHOCYTES % (AUTO) 20 % (12-44); MEAN CORPUSCULAR HEMOGLOBIN 34 pg (25-34); MEAN CORPUSCULAR HGB CONC 35 g/dL (32-36); MEAN CORPUSCULAR VOLUME 97 fL (80-99); MEAN PLATELET VOLUME 10.5 fL (9.0-12.2); MONOCYTES # (AUTO) 0.7 10^3/uL (0.0-1.0); MONOCYTES % (AUTO) 7 % (0-12); NEUTROPHILS # (AUTO) 7.2 10^3/uL (1.8-7.8); NEUTROPHILS % (AUTO) 70 % (42-75); PLATELET COUNT 176 10^3/uL (130-400); WHITE BLOOD COUNT 10.2 10^3/uL (4.3-11.0)
[2022-08-19 19:45] LABS: SMEAR SCAN COMMENT YES
[2022-08-19 19:51] LABS: ALBUMIN 3.8 GM/DL (3.2-4.5); POTASSIUM 3.6 MMOL/L (3.6-5.0)
[2022-08-19 19:53] LABS: CALCIUM 8.6 MG/DL (8.5-10.1); FIBRIN DEGRADATION PRODUCTS 0.65 UG/ML (0.00-0.49); PROTHROMBIN TIME PATIENT 13.8 SEC (12.2-14.7)
[2022-08-19 19:54] LABS: TOTAL PROTEIN 6.4 GM/DL (6.4-8.2)
[2022-08-19 19:57] LABS: CREATININE SERUM 1.01 MG/DL (0.60-1.30)
[2022-08-19 19:57] LABS: BILIRUBIN,URINE NEGATIVE (NEGATIVE); CLARITY,URINE CLEAR; COLOR,URINE YELLOW; GLUCOSE, URINE (UA) NEGATIVE (NEGATIVE); KETONES,URINE NEGATIVE (NEGATIVE); LEUKOCYTE ESTERASE ,URINE NEGATIVE (NEGATIVE); NITRITE,URINE NEGATIVE (NEGATIVE); PROTEIN,URINE NEGATIVE (NEGATIVE)
--- NOTE | 2022-08-19 20:03 | Diagnostic Imaging Report ---
EXAM: Chest 1 view, AP/PA only. INDICATION: Stroke. COMPARISON: Chest radiograph 10/31/2021. FINDINGS: Sternotomy. AICD. Cardiomegaly. Normal central pulmonary vascularity. No focal pulmonary opacity. No pleural effusion or pneumothorax. No significant change. IMPRESSION: 1. No acute cardiopulmonary finding. 2. Stable cardiomegaly. Dictated by: Dictated on workstation # [id number]
--- NOTE | 2022-08-19 20:23 | ED Neurological Problem ---
General Chief Complaint: Neuro-Stroke Like Symptoms Stated Complaint: POSS STROKE Nursing Triage Note: PT TO ER BY [facility] WITH C/O POSS STROKE. PT HAS R ARM WEAKNESS, R FACIAL DROOP ON ARRIVAL TO ER. PT TAKEN TO CT Source: patient, family, EMS, old records Exam Limitations: no limitations History of Present Illness Date Seen by Provider: Aug 19, 2022 Time Seen by Provider: 18:50 Initial Comments This 71-year-old gentleman presents to the emergency room via EMS with acute stroke symptoms with last known well time at 1730. He had been working on a trailer at home, and his had been checking on him periodically throughout the day. She last saw him and interacted with him in a normal state at 1730. At about 1815 she found him in the restroom unable to speak appropriately and with a right facial droop. He appeared pale. She presumed him to be having an acute stroke and activated EMS. Patient has history of cardiovascular disease with stroke in the past. He reports a remote stroke or TIA many years ago as well as another event in October 2021. Review of his chart reveals a CT in October 2021 that demonstrated left frontal lobe encephalomalacia consistent with old stroke. He also has history of carotid artery disease and has had a remote left CEA in [place] 10 or more years ago. Stroke activation was paged when report was received from EMS in the field. Patient was taken promptly to CT scan on arrival. Patient takes aspirin and Plavix but is not anticoagulated. He was markedly hypertensive on arrival. His primary care provider is Dr. Gomez and his clinical administrative coordinator is Dr. Hernandez. He reports recent carotid ultrasound performed in the clinic within the last 6 months showed no critical stenosis. He does not routinely follow with a vascular surgeon. He has a pacemaker. Should be noted after patient returned to the exam room after CT scan, symptoms had resolved and NIH was 0 at that time. He reports no altered mental status or receptive aphasia. His perceived confusion and speech deficit was described as expressive only as he understood everything that was being spoken to him. 21:53 - After further discussion with patient and review of his chart, it appears he had an ablation for atrial flutter in [address] Mccollum at this facility. Patient reports having multiple devices implanted in the past including a defibrillator and pacemaker. He does not recall which device was placed at which location and in which year. 1 device was placed at [facility] in [place], [place], and the other device was placed at [facility] in [place]. He believes one of the devices was MRI incompatible. Allergies and Home Medications Allergies Coded Allergies: No Known Drug Allergies (Unverified , 07/24/18) Patient Home Medication List Home Medication List Reviewed: Yes Allopurinol (Allopurinol) 300 Mg Tablet, 300 MG PO DAILY, (Reported) Entered as Reported by: GILDARDO LIRA on 01/12/19 105 Aspirin (Aspir 81) 81 Mg Tablet.dr, 81 MG PO DAILY, (Reported) Entered as Reported by: PHILIPPE CABAN on 05/24/16 0746 Carvedilol (Carvedilol) 6.25 Mg Tablet, 6.25 MG PO BID, (Reported) Entered as Reported by: GILDARDO LIRA on 01/12/19 105 Clopidogrel Bisulfate (Clopidogrel) 75 Mg Tablet, 75 MG PO DAILY, (Reported) Entered as Reported by: PHILIPPE CABAN on 05/24/1646 Digoxin (Digox) 125 Mcg Tablet, (Reported) Entered as Reported by: ARSH MCCORMICK on 03/11/172015 Furosemide (Furosemide) 40 Mg Tablet, 40 MG PO DAILY, (Reported) Entered as Reported by: GILDARDO LIRA on 01/12/19 105 Naproxen (Naproxen) 500 Mg Tablet, 500 MG PO BID PRN for PAIN-MODERATE TO SEVERE Prescribed by: SHIVA DECKER on 11/27/17 1726 Tadalafil (Cialis) 5 Mg Tablet, (Reported) Entered as Reported by: ARSH MCCORMICK on 03/11/172015 Valsartan (Valsartan) 80 Mg Tablet, 80 MG PO DAILY, (Reported) Entered as Reported by: GILDARDO LIRA on 01/12/19 105 Review of Systems Review of Systems Constitutional: no symptoms reported Eyes: No Symptoms Reported Ears, Nose, Mouth, Throat: no symptoms reported Respiratory: no symptoms reported Cardiovascular: see HPI Gastrointestinal: no symptoms reported Genitourinary: no symptoms reported Musculoskeletal: no symptoms reported Skin: no symptoms reported Psychiatric/Neurological: See HPI Endocrine: No Symptoms Reported Hematologic/Lymphatic: No Symptoms Reported Past Srsfvtf-Tvulhj-Twtimj Hx Patient Social History Tobacco Use?: No Use of E-Cig and/or Vaping dev: No Substance use?: No Alcohol Use?: No Pt feels they are or have been: No Immunizations Up To Date Tetanus Booster (TDap): Less than 5yrs Influenza Vaccine Up-to-Date: No; Not Current Seasonal Allergies Seasonal Allergies: No Past Medical History Surgery/Hospitalization HX: cardiac cath, cabg x4, ortho, egd, ppm/aicd, cad, high cholesterol, htn, pvd, renal stones, gerd, ch back pain, gout Surgeries: Yes Cardiac (Ablation 2019), CABG, Defibrillator, Orthopedic, Pacemaker, Vascular Surgery (Left CEA) Respiratory: Yes COPD Currently Using CPAP: No Cardiac: Yes (SVT, ATRIAL FLUTTER HX) Atrial Fibrillation (Attrial flutter post ablation 2018), Cardiomyopathy, Coronary Artery Disease, High Cholesterol, Hypertension, Peripheral Vascular (Carotid stenosis) Neurological: Yes TIA Reproductive Disorders: No Sexually Transmitted Disease: No HIV/AIDS: No Genitourinary: Yes Kidney Stones Gastrointestinal: Yes Gastroesophageal Reflux Musculoskeletal: Yes Chronic Back Pain, Fractures, Gout Endocrine: No HEENT: Yes (GLASSES) Loss of Vision: Bilateral Hearing Impairment: Deaf Cancer: No Psychosocial: No Anxiety Integumentary: No Blood Disorders: No Adverse Reaction/Blood Tranf: No Family Medical History Cancer 03 FATHER (lung ca passed at 65) History of - disorder 03 MOTHER ( from complication of surgery with staph infection) Kidney disease 09 SISTER ( from severe uti at age 54) Physical Exam Vital Signs Vital Signs - First Documented 08/19/22 08/19/22 18:53 22:20 Temp 36.8 Pulse 83 Resp 18 B/P (MAP) 183/101 (128) Pulse Ox 96 O2 Delivery Room Air Capillary Refill : Height, Weight, BMI Height: 5'10.00" Weight: 222lbs. 0.0oz. 100.220025vq; 34.00 BMI Method:Stated General Appearance: WD/WN, no apparent distress HEENT: PERRL/EOMI, normal ENT inspection Neck: normal inspection Respiratory: lungs clear, normal breath sounds, no respiratory distress, no accessory muscle use Cardiovascular: regular rate, rhythm, no edema, no murmur; No JVD Gastrointestinal: non tender, soft; No distended Extremities: non-tender, normal inspection, no pedal edema Neurologic/Psychiatric: alert, normal mood/affect, abnormal welder first class II-XII (Right- sided facial droop, improving with time, minimal at discharge), motor weakness (Initial right arm paralysis resolved with time) Crainal Nerves: normal hearing, PERRL, abnormal speech (Initial expressive aphasia resolved with time) Coordination/Gait: normal finger to nose, normal gait Skin: normal color, warm/dry Stroke NIH Stroke Scale Assessment Level of Consciousness: 0=Alert (0), Level of Consciousness-Questions: 0=Answers both month/age (0), LOC Commands: 0=Performs both tasks (0), Visual Redd: 0=No visual loss (0), Facial Movement (Facial Paresis): 0=Normal symmetrical mnt (0), Motor Function-Arms Right: 0=No drift (0), Motor Function-Arms Left: 0=No drift (0), Motor Function-Legs Right: 0=No drift (0), Motor Function-Legs Left: 0=No drift (0), Limb Ataxia: 0=Absent (0), Sensory: 0=Normal:no loss (0), Best Language: 0=No aphasia (0), Dysarthria: 0=Normal (0), Extinction & Inattention: 0=No abnormality (0), Total: 0 Progress/Results/Core Measures Results/Orders Lab Results Laboratory Tests Test 08/19/22 19:22 08/19/22 19:30 08/19/22 19:41 Range/Units Glucometer 128 H 70-110 MG/DL White Blood Count 10.2 4.3-11.0 10^3/uL Red Blood Count 5.02 4.30-5.52 10^6/uL Hemoglobin 16.9 13.3-17.7 g/dL Hematocrit 49 40-54 % Mean Corpuscular Volume 97 80-99 fL Mean Corpuscular Hemoglobin 34 25-34 pg Mean Corpuscular Hemoglobin Concent 35 32-36 g/dL Red Cell Distribution Width 14.0 10.0-14.5 % Platelet Count 176 130-400 10^3/uL Mean Platelet Volume 10.5 9.0-12.2 fL Immature Granulocyte % (Auto) 1 % Neutrophils (%) (Auto) 70 42-75 % Lymphocytes (%) (Auto) 20 12-44 % Monocytes (%) (Auto) 7 0-12 % Eosinophils (%) (Auto) 1 0-10 % Basophils (%) (Auto) 1 0-10 % Neutrophils # (Auto) 7.2 1.8-7.8 10^3/uL Lymphocytes # (Auto) 2.1 1.0-4.0 10^3/uL Monocytes # (Auto) 0.7 0.0-1.0 10^3/uL Eosinophils # (Auto) 0.1 0.0-0.3 10^3/uL Basophils # (Auto) 0.1 0.0-0.1 10^3/uL Immature Granulocyte # (Auto) 0.1 0.0-0.1 10^3/uL Percent Immature Platelet Fraction 2.1 0.0-7.6 % Prothrombin Time 13.8 12.2-14.7 SEC INR Comment 1.0 0.8-1.4 Activated Partial Thromboplast Time 24 24-35 SEC D-Dimer 0.65 H 0.00-0.49 UG/ML Sodium Level 139 135-145 MMOL/L Potassium Level 3.6 3.6-5.0 MMOL/L Chloride Level 108 H 98-107 MMOL/L Carbon Dioxide Level 18 L 21-32 MMOL/L Anion Gap 13 5-14 MMOL/L Blood Urea Nitrogen 17 7-18 MG/DL Creatinine 1.01 0.60-1.30 MG/DL Estimat Glomerular Filtration Rate 81 BUN/Creatinine Ratio 17 Glucose Level 121 H 70-105 MG/DL Calcium Level 8.6 8.5-10.1 MG/DL Corrected Calcium 8.8 8.5-10.1 MG/DL Total Bilirubin 1.0 0.1-1.0 MG/DL Aspartate Amino Transf (AST/SGOT) 19 5-34 U/L Alanine Aminotransferase (ALT/SGPT) 15 0-55 U/L Alkaline Phosphatase 64 40-136 U/L Troponin I 0.028 <0.028 NG/ML Total Protein 6.4 6.4-8.2 GM/DL Albumin 3.8 3.2-4.5 GM/DL Smear Scan YES Urine Color YELLOW Urine Clarity CLEAR Urine pH 6.0 5-9 Urine Specific [place] <=1.005 1.016-1.022 Urine Protein NEGATIVE NEGATIVE Urine Glucose (UA) NEGATIVE NEGATIVE Urine Ketones NEGATIVE NEGATIVE Urine Nitrite NEGATIVE NEGATIVE Urine Bilirubin NEGATIVE NEGATIVE Urine Urobilinogen 0.2 < = 1.0 MG/DL Urine Leukocyte Esterase NEGATIVE NEGATIVE Urine RBC (Auto) NEGATIVE NEGATIVE Urine RBC NONE /HPF Urine WBC 0-2 /HPF Urine Squamous Epithelial Cells NONE /HPF Urine Crystals NONE /LPF Urine Bacteria NEGATIVE /HPF Urine Casts PRESENT /LPF Urine Hyaline Casts RARE /LPF Urine Mucus SMALL H /LPF Urine Culture Indicated NO My Orders Orders - ALEX YOUNG MD Cbc With Automated Diff (08/19/22 18:50) Protime With Inr (08/19/22 18:50) Partial Thromboplastin Time (08/19/22 18:50) Comprehensive Metabolic Panel (08/19/22 18:50) Fibrin Degradation Products (08/19/22 18:50) Troponin I Brent (08/19/22 18:50) Ua Culture If Indicated (08/19/22 18:50) Chest 1 View, Ap/Pa Only (08/19/22 18:50) Catheter(Urinary) Insert & Ass 03,15 (08/19/22 18:50) Ekg Tracing (08/19/22 18:50) Nothing By Mouth (08/19/22 Dinner) Accucheck Stat ONCE (08/19/22 18:50) Ed Iv/Invasive Line Start (08/19/22 18:50) Vital Signs Stroke Patient Q15M (08/19/22 18:50) Ct Head Wo-R/O Stroke (08/19/22 18:50) O2 (08/19/22 18:50) Intake & Output 06,14,22 (08/19/22 18:50) Monitor-Rhythm Ecg Trace Only (08/19/22 18:50) Dysphagia Screening Tool Q10MX1 (08/19/22 18:50) Post Thrombolytic Adminstratio (08/19/22 18:50) Lidocaine 2% (Urojet) (Xylocaine Urojet) (08/19/22 19:00) Ct Angio Head/Neck (08/19/22 18:57) Ct Head Perfusion W/ Contrast (08/19/22 18:58) Iohexol Injection (Omnipaque 350 Mg/Ml 1 (08/19/22 19:00) Ns (Ivpb) (Sodium Chloride 0.9% Ivpb Bag (08/19/22 19:00) Iohexol Injection (Omnipaque 350 Mg/Ml 1 (08/19/22 19:15) Received Contrast (Hold Metformin- Contr (08/19/22 19:15) Ns (Ivpb) (Sodium Chloride 0.9% Ivpb Bag (08/19/22 19:15) Ns Iv 500 Ml (Sodium Chloride 0.9%) (08/19/22 21:45) Medications Given in ED Current Medications Medications Dose Ordered Sig/Filipe Route Start Time Stop Time Status Last Admin Dose Admin Iohexol 100 ml ONCE ONCE IV 08/19/22 19:00 08/19/22 19:01 DC 08/19/22 19:13 45 ML Iohexol 100 ml ONCE ONCE IV 08/19/22 19:15 08/19/22 19:16 DC 08/19/22 19:14 75 ML Sodium Chloride 100 ml ONCE ONCE IV 08/19/22 19:00 08/19/22 19:01 DC 08/19/22 19:13 40 ML Sodium Chloride 100 ml ONCE ONCE IV 08/19/22 19:15 08/19/22 19:16 DC 08/19/22 19:14 80 ML Sodium Chloride 500 ml @ 0 mls/hr Q0M ONCE IV 08/19/22 21:45 08/19/22 21:46 DC 08/19/22 21:44 500 MLS/HR Vital Signs/I&O 08/19/22 08/19/22 18:53 22:20 Temp 36.8 Pulse 83 68 Resp 18 B/P (MAP) 183/101 (128) 139/76 Pulse Ox 96 O2 Delivery Room Air Blood Pressure Mean: 128 FSBG Bedside Testing Finger Stick Blood Glucose: 126 Blood Glucose Action Taken: Dr and RN notified Initial ECG Impression Date: Aug 19, 2022 Initial ECG Impression Time: 19:16 Initial ECG Rate: 72 Comment Atrial sensed, ventricular paced rhythm. Diagnostic Imaging Diagonstic Imaging: CT Plain Films/CT/US/NM/MRI: head Comments Noncontrast CT head was viewed by me immediately after it was obtained. Encephalomalacia in the left frontal lobe was noted with no acute hemorrhage or mass. I discussed the report and reviewed the report with the radiologist later as noted below: NAME: ANTONINO MASONASHIA Angel [facility] REC#: [id number] PT STATUS: REG ER : 1950 PHYSICIAN: ALEX YOUNG MD ADMIT DATE: 08/19/22/ER Draft Date of Exam:08/19/22 CT HEAD WO-R/O STROKE PROCEDURE: CT head w/o r/o stroke. TECHNIQUE: Multiple contiguous axial images were obtained through the brain without the use of intravenous contrast. Auto Exposure Controls were utilized during the CT exam to meet ALARA standards for radiation dose reduction. INDICATION: Stroke. Neurologic deficit. Right-sided facial weakness. Difficulty speaking. COMPARISON: CT head without contrast 09/25/2021. FINDINGS: Mild generalized parenchymal volume loss. Advanced leukoaraiosis. Chronic infarct in the left frontal lobe. Chronic infarct in the left caudate head. No intracranial hemorrhage, mass effect, hydrocephalus or extra-axial fluid collection. No CT evidence of an acute territorial infarction. Osseous structures are intact. Mild mucosal thickening in the right maxillary sinus. The mastoids are clear. IMPRESSION: 1. No acute intracranial CT finding. 2. Chronic infarct in the left frontal lobe and left caudate head. Findings discussed with Dr. Alex Young at 7:03 PM on 08/19/2022. Dictated on workstation # [id number] Dict: 08/19/221900 Trans: 08/19/221907 [facility] [id number] Interpreted by: PAYTON HANSEN MD Diagonstic Imaging: Xray Plain Films/CT/US/NM/MRI: chest Comments NAME: JEFFREY MASON [facility] REC#: [id number] PT STATUS: REG ER : 1950 PHYSICIAN: ALEX YOUNG MD ADMIT DATE: 08/19/22/ER Draft Date of Exam:08/19/22 CHEST 1 VIEW, AP/PA ONLY EXAM: Chest 1 view, AP/PA only. INDICATION: Stroke. COMPARISON: Chest radiograph 10/31/2021. FINDINGS: Sternotomy. AICD. Cardiomegaly. Normal central pulmonary vascularity. No focal pulmonary opacity. No pleural effusion or pneumothorax. No significant change. IMPRESSION: 1. No acute cardiopulmonary finding. 2. Stable cardiomegaly. Dictated on workstation # [id number] Dict: 08/19/221956 Trans: 08/19/222002 [id number] Interpreted by: PAYTON HANSEN MD Diagonstic Imaging: CT Plain Films/CT/US/NM/MRI: other (Angiogram head and neck) Comments CT angiogram head and neck discussed with radiologist and report reviewed as below: NAME: JEFFREY MASON [facility] REC#: [id number] PT STATUS: REG ER : 1950 PHYSICIAN: ALEX YOUNG MD ADMIT DATE: 08/19/22/ER Signed Date of Exam:08/19/22 CT ANGIO HEAD/NECK PROCEDURE: CT angiography of the head and CT angiography of the neck with and without contrast. TECHNIQUE: Contiguous noncontrast images were obtained from the skull base through the vertex. After intravenous contrast administration, helical CT angiography of the neck was performed. Source data was reformatted into 3D MIP projections. Delayed post contrast acquisition was also obtained. Auto Exposure Controls were utilized during the CT exam to meet ALARA standards for radiation dose reduction. INDICATION: Stroke. COMPARISON: CT head without contrast 08/19/2022 and 10/31/2021. FINDINGS: Postcontrast head CT continues to demonstrate chronic infarct in the left frontal lobe and left caudate head. There remains no evidence of a large territorial acute infarct or hemorrhage. No hydrocephalus or extra-axial fluid collection. No abnormal intracranial enhancement on the arterial phase images provided. CTA demonstrates a conventional aortic arch. Calcified atherosclerotic disease results in 90-99% narrowing of the right internal carotid artery origin. There is 50-69% narrowing of the left internal carotid artery origin. The basilar, bilateral vertebral, common carotid, anterior cerebral, middle cerebral and posterior cerebral arteries demonstrate no high-grade narrowing, aneurysm or dissection. The dural venous sinuses are normally opacified. Mild to moderate spondylotic changes in the cervical spine. No acute osseous finding. Partially visualized sternotomy. No acute finding in the visualized paravertebral soft tissue. Partially visualized cardiac pacer. Lung apices are clear. IMPRESSION: 1. No large vessel occlusion. 2. Atherosclerotic disease results in high-grade stenosis of the right internal carotid artery origin of 90-99%. 3. Narrowing of the left internal carotid artery origin of 50-69%. 4. No other high-grade narrowing, aneurysm or dissection involving major arteries in the head and neck. Findings discussed with Dr. Alex Young at 7:27 PM on 08/19/2022. Dictated by: Dictated on workstation # [id number] Dict: 08/19/221920 Trans: 08/19/222132 PJE [id number] Interpreted by: PAYTON HANSEN MD Electronically signed by: PAYTON HANSEN MD 08/19/222132 Diagonstic Imaging: CT Plain Films/CT/US/NM/MRI: head (Perfusion study) Comments CT perfusion study discussed with the radiologist and report reviewed as below: NAME: JEFFREY MASON [facility] REC#: [id number] PT STATUS: REG ER : 1950 PHYSICIAN: ALEX YOUNG MD ADMIT DATE: 08/19/22/ER Signed Date of Exam:08/19/22 CT HEAD PERFUSION W/ CONTRAST EXAM: CT head perfusion w/contrast INDICATION: Stroke. COMPARISON: CTA head and neck and CT head without contrast 08/19/2022. CT head without contrast 10/31/2021. FINDINGS: CT perfusion demonstrates adequate arterial inflow peaks and no significant motion. Registered abnormal CBF and T-Max in the left frontal lobe corresponds to a chronic infarct. No other abnormal finding on the CT perfusion. IMPRESSION: No CT perfusion evidence of acute infarct or decreased perfusion. Findings discussed with Dr. Alex Young at 7:27 PM on 08/19/2022. Dictated by: Dictated on workstation # [id number] Dict: 08/19/221930 Trans: 08/19/222132 PJE [id number] Interpreted by: PAYTON HANSEN MD Electronically signed by: PAYTON HANSEN MD 08/19/222132 Critical Care Note Critical Care Start Time: 18:50 Stop Time: 22:20 Total Time (minutes) 60 Progress 18:59 - Patient was received in the emergency room by EMS and was taken directly to CT. Vital signs were stable. Stroke activation was paged. At that time he was exhibiting right arm paralysis, right-sided facial droop, and expressive aphasia. CT imaging was not delayed to obtain an NIH score. I accompanied him to CT scan and viewed the images directly off of the scanner. No intracranial hemorrhage or mass was appreciated by my interpretation. We are proceeding with CT angiogram and CT perfusion study. 20:00 - NIH score was 0 by the time patient arrived back to the exam room. He had no measurable deficits. Due to resolution of symptoms and no measurable deficits, thrombolytics were contraindicated. Case was discussed with Dr. Calderon, stroke neurologist at [facility], at 1934. CT angiogram noted significant carotid stenosis of 50 to 69% stenosis of the left ICA and 90 to 99% stenosis of the right ICA. Transfer to a facility capable of vascular surgery was recommended. Transfer to [facility] in [place] was discussed with Dr. Lowery, vascular surgeon on-call. He recommended that this patient have an MRI in the morning to determine if a completed stroke occurred as this will dictate whether he is a candidate for prompt vascular surgery or if he needs to wait. He recommended heparinization while awaiting MRI. MRI is not available at this facility until morning and patient does not definitively know the MRI compatibility of his chest devices. Ultimately, Dr. Lowery declined transfer until MRI results are known. 21:10 - Transfer was excepted by Dr. Calderon at [facility]. In the interim, patient has redeveloped some very subtle right facial droop with an NIH score of 1. I discussed the situation with patient and his family. Patient requested that we try a transfer to [facility] in [place] as he would like to stay closer to home. I contacted [facility] at 20:37. I spoke with hospitalist Dr. Cheema at 21:10. [facility] is not a comprehensive stroke center. They lack in-house neurology services and there was question about availability of vascular surgery this week. Ultimately, transfer to [facility] was declined. Admission to this facility was declined by Dr. Wright, hospitalist, and Dr. GOMEZ, primary care provider, due to the complexity and high risk nature of his situation and lack of comprehensive stroke services at this facility. 21:15 - Case was again reviewed with Dr. Calderon who accepted transfer. She did not recommend heparinization until patient could be assessed at their facility. Patient remained stable with only a very subtle right-sided facial droop. NIH remains 1. Patient is agreeable to transfer to [facility]. Transfer will be by [facility] ground. Flight is not possible due to weather. 22:20 - Patient has remained stable and is departing now with [facility] for transfer to [facility]. All imaging reports, EKG, and labs including CBC, CMP, troponin, D-dimer, urinalysis, and magnesium were reviewed by me. No significant lab abnormalities were appreciated. CT of the head was viewed by me and no acute abnormalities were appreciated. Reports of CT head, CT angiogram head and neck, and CT perfusion study were reviewed and discussed with the radiologist. EKG showed a paced rhythm and was interpreted by me. 60 minutes of critical care time was dedicated to this patient including bedside care, interpretation of studies, d iscussion with consultants and specialists, review of medical record, and shared decision making of high risk situation with patient and his family. Departure Impression Primary Impression: TIA (transient ischemic attack) Additional Impressions: Bilateral stenosis of carotid arteries greater than 50% Acute right-sided weakness Disposition: 02 XFER SHT-TRM HOSP Condition: Improved Transfer Transfer Reason: Exceeds level of care Time Spoke to Accepting Phy: 21:15 Transfer Progress Notes Transfer accepted by Dr. Calderon, stroke neurologist at [facility]. Transfer will be by ground EMS as patient is stable and flight crews are grounded due to weather. Transfer Time: 22:20 Transfer Facility: [facility] ([facility]) Method of Transfer: EMS Departure-Patient Inst. Referrals: DENY GOMEZ MD (PCP/Family) Primary Care Physician Copy Copies To 1: DENY GOMEZ MD Copies To 2: ABRAHAM HERNANDEZ MD [facility] ALEX YOUNG MD Aug 19, 2022 20:23
[2022-08-19 20:24] LABS: BACTERIA,URINE NEGATIVE /HPF; HYALINE CASTS, URINE RARE /LPF; WBC,URINE 0-2 /HPF
[2022-08-19] MEDS ORDERED: NS IV 500 ML 500 ML IV ONE (21:45)
[2022-08-19 22:20] VITALS: BP 139/76
== END 2022-08-19 22:20 | disposition short-term general hospital (02) ==
LOC: EDUNIT# 18:49 → ER 18:50
DX: I65.23 Occlusion and stenosis of bilateral carotid arteries (principal); I10 Essential (primary) hypertension; R29.701 NIHSS score 1; Z95.1 Presence of aortocoronary bypass graft; Z95.0 Presence of cardiac pacemaker
CPT/HCPCS: 0042T; 70450; 70496; 70498; 71045; 80053; 81000; 82947; 84484; 85025; 85379; 85610; 85730; 93005; 93041; 99285; 36415

== ENCOUNTER → 2023-01-18 | Outpatient (CLI) | payer MEDICARE, OTHER ==
[~2023-01-18] MED LIST changes: +CATHETER FLUSH 10 ML SYR IV PRN; +HOLD METFORMIN - RECEIVED CONTRAST 20 ML VIAL IV SCH; +IOHEXOL 350 MG/ML 100 ML (OMNIPAQUE 350) VIAL IV ONE; -LOSA100T57 PO; +LOSA100T58 PO; +NS 100 ML (IVPB) BAG IV ONE
[2023-01-18 08:08] LABS: CREATININE SERUM 1.22 MG/DL (0.60-1.30)
--- NOTE | 2023-01-18 09:40 | Diagnostic Imaging Report ---
PROCEDURE: CT angiography of the head with and without contrast. TECHNIQUE: Noncontrast CT of the head was obtained. Subsequently, after intravenous administration of contrast, thin section axial CT angiography of the head was performed. Source data was reformatted into multiple MIP reformats. Delayed postcontrast acquisition of the head was also acquired. Auto Exposure Controls were utilized during the CT exam to meet ALARA standards for radiation dose reduction. INDICATION: History of carotid stenosis. Follow-up. History of prior stroke. COMPARISON: 08/19/2022. FINDINGS: CT HEAD: No large acute territorial ischemia. No acute hemorrhage or mass. Chronic infarct is seen in the left frontal lobe. The ventricles are prominent. The basilar cisterns are clear. No abnormal enhancement is seen. The paranasal sinuses and mastoid air cells are clear. The globes and orbits are unremarkable. The scalp and calvarium are intact. CTA HEAD: Atherosclerotic plaque is seen within the [place] of the intracranial portion of the bilateral ICAs without significant stenosis or aneurysm. No stenosis is seen in the bilateral anterior, middle, and posterior cerebral arteries. No evidence of aneurysm the [place]. In the posterior circulation, both of the vertebral arteries demonstrate normal opacification. Both the right and left PICA arteries are identified. The basilar artery is normal in course and caliber. The terminal branch vessels including the superior cerebellar arteries unremarkable. IMPRESSION: 1. No stenosis or aneurysm in the [place]. 2. No large acute territorial ischemia. No acute hemorrhage or mass. 3. Chronic infarct in the left frontal lobe. Dictated by: Dictated on workstation # [id number]
== END ==
LOC: RAD 07:00
PROVIDERS: ATTEND Psychiatry & Neurology Neurology
DX: I63.412 Cerebral infarction due to embolism of left middle cerebral artery (principal); I63.9 Cerebral infarction, unspecified; Z86.79 Personal history of other diseases of the circulatory system
CPT/HCPCS: 36415; 70496; 82565; 84520

== ENCOUNTER 2023-02-10 02:27 | Emergency (ER) | payer MEDICARE, OTHER ==
[~2023-02-10] VITALS: Ht 177.8 cm; Wt 94.4 kg
[~2023-02-10 02:27] MED LIST changes: -CATHETER FLUSH 10 ML SYR IV PRN; -HOLD METFORMIN - RECEIVED CONTRAST 20 ML VIAL IV SCH; -IOHEXOL 350 MG/ML 100 ML (OMNIPAQUE 350) VIAL IV ONE; -NS 100 ML (IVPB) BAG IV ONE
--- NOTE | 2023-02-10 03:03 | ED Abdominal Pain ---
General Chief Complaint: Abdominal/GI Problems Stated Complaint: RT LOWER SIDE PX Nursing Triage Note: Patient c/o RLQ pain that started at midnight. Patient denies any fevers, nausea, vomiting, or diarrhea. Patient states he has a Hx. of kidney stones. Patient states it was a sudden onset of pain. Patient states this pain is similar to his previous kidney stone pain. Patient c/o urinary frequency. Source of Information: Patient Exam Limitations: No Limitations History of Present Illness Date Seen by Provider: Feb 10, 2023 Time Seen by Provider: 02:49 Initial Comments This 72-year-old gentleman presents to the emergency room with complaints of right lower quadrant pain that hit him fairly suddenly around midnight. He denies any associated nausea, vomiting, fever, hematuria, constipation, or diarrhea. He does have a history of ureteral stones in the past, and this pain is reminiscent of those episodes. He has required lithotripsy by Dr. Rutledge in the past. He presently rates his pain as 7/10. He has had some urinary frequency with small volume voids. Allergies and Home Medications Allergies Coded Allergies: No Known Drug Allergies (Unverified , 07/24/18) Patient Home Medication List Home Medication List Reviewed: Yes Allopurinol (Allopurinol) 300 Mg Tablet, 300 MG PO DAILY, (Reported) Entered as Reported by: GILDARDO LIRA on 01/12/19 1054 Aspirin (Aspir 81) 81 Mg Tablet.dr, 81 MG PO DAILY, (Reported) Entered as Reported by: PHILIPPE CABAN on 05/24/16 0746 Carvedilol (Carvedilol) 6.25 Mg Tablet, 6.25 MG PO BID, (Reported) Entered as Reported by: GILDARDO LIRA on 01/12/19 1054 Cephalexin (Cephalexin) 500 Mg Tablet, 500 MG PO TID Prescribed by: JAYSHREE DORAN on 02/10/23 0451 Clopidogrel Bisulfate (Clopidogrel) 75 Mg Tablet, 75 MG PO DAILY, (Reported) Entered as Reported by: PHILIPPE CABAN on 05/24/16 0746 Digoxin (Digox) 125 Mcg Tablet, (Reported) Entered as Reported by: ARSH MCCORMICK on 03/11/172015 Furosemide (Furosemide) 40 Mg Tablet, 40 MG PO DAILY, (Reported) Entered as Reported by: GILDARDO LIRA on 01/12/19 1054 Naproxen (Naproxen) 500 Mg Tablet, 500 MG PO BID PRN for PAIN-MODERATE TO SEVERE Prescribed by: SHIVA DECKER on 11/27/17 1726 Ondansetron (Ondansetron Odt) 4 Mg Tab.rapdis, 4 MG SL Q4H PRN for NAUSEA/VOMITING Prescribed by: JAYSHREE DOARN on 02/10/23 0451 Oxycodone HCl/Acetaminophen (Percocet 5-325 mg Tablet) 1 Each Tablet, 1 TAB PO Q4H PRN for PAIN-MODERATE (5-7) Prescribed by: JAYSHREE DORAN on 02/10/23 045 Tadalafil (Cialis) 5 Mg Tablet, (Reported) Entered as Reported by: ARSH MCCORMICK on 03/11/172015 Tamsulosin HCl (Flomax) 0.4 Mg Cap, 0.4 MG PO DAILY Prescribed by: JAYSHREE DORAN on 02/10/23 045 Valsartan (Valsartan) 80 Mg Tablet, 80 MG PO DAILY, (Reported) Entered as Reported by: GILDARDO LIRA on 01/12/19 1054 Review of Systems Review of Systems Constitutional: no symptoms reported EENTM: No Symptoms Reported Respiratory: No Symptoms Reported Cardiovascular: No Symptoms Reported Gastrointestinal: See HPI Genitourinary: See HPI Musculoskeletal: no symptoms reported Skin: no symptoms reported Psychiatric/Neurological: No Symptoms Reported Endocrine: No Symptoms Reported Hematologic/Lymphatic: No Symptoms Reported Past Virbcsy-[id number]-[id number] Hx Patient Social History Tobacco Use?: No Use of E-Cig and/or Vaping dev: No Substance use?: No Alcohol Use?: No Immunizations Up To Date Tetanus Booster (TDap): Less than 5yrs Influenza Vaccine Up-to-Date: No; Not Current Seasonal Allergies Seasonal Allergies: No Past Medical History Surgery/Hospitalization HX: HTN, elevated cholesterol, CHF, A-fib Surgeries: Yes Cardiac, CABG, Defibrillator, Orthopedic, Pacemaker, Renal (Ureteral stone), Vascular Surgery (Left CEA) Respiratory: Yes COPD Currently Using CPAP: No Cardiac: Yes (SVT, ATRIAL FLUTTER HX) Atrial Fibrillation, Cardiomyopathy, Coronary Artery Disease, High Cholesterol, Hypertension, Peripheral Vascular Neurological: Yes TIA Reproductive Disorders: No Sexually Transmitted Disease: No HIV/AIDS: No Genitourinary: Yes Kidney Stones Gastrointestinal: Yes Gastroesophageal Reflux Musculoskeletal: Yes Chronic Back Pain, Fractures, Gout Endocrine: No HEENT: Yes (GLASSES) Loss of Vision: Bilateral Hearing Impairment: Deaf Cancer: No Psychosocial: No Anxiety Integumentary: No Blood Disorders: No Adverse Reaction/Blood Tranf: No Family Medical History Cancer 03 FATHER (lung ca passed at 65) History of - disorder 03 MOTHER ( from complication of surgery with staph infection) Kidney disease 09 SISTER ( from severe uti at age 54) Physical Exam Vital Signs Vital Signs - First Documented 02/10/23 02/10/23 02:36 05:01 Temp 36.8 Pulse 70 Resp 14 B/P (MAP) 163/93 (116) Pulse Ox 97 O2 Delivery Room Air Capillary Refill : Height/Weight/BMI Height: 5'10.00" Weight: 222lbs. 0.0oz. 100.765094hw; 29.00 BMI Method:Stated General Appearance: WD/WN, no apparent distress HEENT: normal ENT inspection Neck: normal inspection Respiratory: lungs clear, normal breath sounds, no respiratory distress Cardiovascular: regular rate, rhythm, no edema, no murmur Gastrointestinal: normal bowel sounds, soft, tenderness (Right lower quadrant) Extremities: normal inspection Neurologic/Psychiatric: no motor/sensory deficits, alert, normal mood/affect Skin: normal color, warm/dry Progress/Results/Core Measures Results/Orders Lab Results Laboratory Tests Test 02/10/23 02:40 02/10/23 02:55 Range/Units Urine Color YELLOW Urine Clarity CLEAR Urine pH 6.5 5-9 Urine Specific [place] 1.020 1.016-1.022 Urine Protein NEGATIVE NEGATIVE Urine Glucose (UA) NEGATIVE NEGATIVE Urine Ketones NEGATIVE NEGATIVE Urine Nitrite NEGATIVE NEGATIVE Urine Bilirubin NEGATIVE NEGATIVE Urine Urobilinogen 0.2 < = 1.0 MG/DL Urine Leukocyte Esterase NEGATIVE NEGATIVE Urine RBC (Auto) 3+ H NEGATIVE Urine RBC 10-25 H /HPF Urine WBC NONE /HPF Urine Crystals NONE /LPF Urine Bacteria NEGATIVE /HPF Urine Casts NONE /LPF Urine Mucus NEGATIVE /LPF Urine Culture Indicated NO White Blood Count 13.8 H 4.3-11.0 10^3/uL Red Blood Count 5.31 4.30-5.52 10^6/uL Hemoglobin 17.9 H 13.3-17.7 g/dL Hematocrit 51 40-54 % Mean Corpuscular Volume 95 80-99 fL Mean Corpuscular Hemoglobin 34 25-34 pg Mean Corpuscular Hemoglobin Concent 35 32-36 g/dL Red Cell Distribution Width 13.3 10.0-14.5 % Platelet Count 183 130-400 10^3/uL Mean Platelet Volume 10.0 9.0-12.2 fL Immature Granulocyte % (Auto) 1 % Neutrophils (%) (Auto) 79 H 42-75 % Lymphocytes (%) (Auto) 12 12-44 % Monocytes (%) (Auto) 7 0-12 % Eosinophils (%) (Auto) 1 0-10 % Basophils (%) (Auto) 1 0-10 % Neutrophils # (Auto) 10.9 H 1.8-7.8 10^3/uL Lymphocytes # (Auto) 1.7 1.0-4.0 10^3/uL Monocytes # (Auto) 1.0 0.0-1.0 10^3/uL Eosinophils # (Auto) 0.1 0.0-0.3 10^3/uL Basophils # (Auto) 0.1 0.0-0.1 10^3/uL Immature Granulocyte # (Auto) 0.1 0.0-0.1 10^3/uL Sodium Level 141 135-145 MMOL/L Potassium Level 3.8 3.6-5.0 MMOL/L Chloride Level 103 98-107 MMOL/L Carbon Dioxide Level 26 21-32 MMOL/L Anion Gap 12 5-14 MMOL/L Blood Urea Nitrogen 20 H 7-18 MG/DL Creatinine 1.59 H 0.60-1.30 MG/DL Estimat Glomerular Filtration Rate 46 BUN/Creatinine Ratio 13 Glucose Level 119 H 70-105 MG/DL Calcium Level 10.0 8.5-10.1 MG/DL Corrected Calcium 8.5-10.1 MG/DL Total Bilirubin 1.1 H 0.1-1.0 MG/DL Aspartate Amino Transf (AST/SGOT) 18 5-34 U/L Alanine Aminotransferase (ALT/SGPT) 16 0-55 U/L Alkaline Phosphatase 82 40-136 U/L C-Reactive Protein High Sensitivity 0.13 0.00-0.50 MG/DL Total Protein 8.0 6.4-8.2 GM/DL Albumin 4.7 H 3.2-4.5 GM/DL My Orders Orders - JAYSHREE YOUNG MD Ua Culture If Indicated (02/10/23 02:49) Cbc With Automated Diff (02/10/23 03:02) Comprehensive Metabolic Panel (02/10/23 03:02) Hs C Reactive Protein (02/10/23 03:02) Ed Iv/Invasive Line Start (02/10/23 03:02) Ct Abd/Pelvis Wo(Kidney Stone) (02/10/23 03:47) Lactated Ringers (Lr 1000 Ml Iv Solution (02/10/23 04:00) Fentanyl Injection (Fentanyl Injection (02/10/23 04:00) Cephalexin Capsule (Cephalexin Capsule) (02/10/23 04:45) Oxycodone/Apap 5/325mg Tablet (Oxycodon (02/10/23 04:45) Medications Given in ED Vital Signs/I&O 02/10/23 02/10/23 02:36 05:01 Temp 36.8 Pulse 70 79 Resp 14 14 B/P (MAP) 163/93 (116) 195/110 Pulse Ox 97 O2 Delivery Room Air Room Air Blood Pressure Mean: 116 Progress Progress Note : Progress Note Patient was interviewed and examined at 0249. Advised to take morning blood pressure medications upon returning home. Labs were obtained and interpreted by me. CBC was notable for leukocytosis of 13.8 and an elevated hemoglobin of 17.9. Creatinine was elevated at 1.59. This is elevated above his baseline which is near 1.0. Urinalysis demonstrated microscopic hematuria with 10-25 RBCs. No pyuria was noted. Noncontrast CT was obtained. This was reviewed and interpreted by me. There was a 6 to 7 mm ureteral stone in the proximal right ureter causing hydronephrosis and perinephric stranding. Appendix was not appreciated by me but there were no inflammatory changes in the right lower quadrant to suggest appendicitis. Patient was treated with fentanyl followed by Percocet. A liter of IV fluid was infused. Keflex was given for infection prophylaxis. Patient was advised to seek referral to a urologist as soon as possible. Official radiologist's interpretation was not yet available at the time of discharge. This will be reviewed later and communicated to the patient if any additional findings are noted. Diagnostic Imaging Diagonstic Imaging: CT Plain Films/CT/US/NM/MRI: abdomen, pelvis Comments NAME: JEFFREY MASON [facility] REC#: [id number] PT STATUS: DEP ER : 1950 PHYSICIAN: JAYSHREE YOUNG MD ADMIT DATE: 02/10/23/ER Signed Date of Exam:02/10/23 CT ABD/PELVIS WO(KIDNEY STONE) PROCEDURE: CT urinary tract, rule out kidney stone. TECHNIQUE: Multiple contiguous axial images were obtained through the abdomen and pelvis without the use of intravenous contrast. Auto Exposure Controls were utilized during the CT exam to meet ALARA standards for radiation dose reduction. INDICATION: Right flank pain. COMPARISON: 02/11/2015. DISCUSSION: Mild cardiomegaly is noted. No pleural or pericardial fluid. The lung bases are well-aerated. The gallbladder is mostly contracted. The liver, pancreas, stomach, spleen, and adrenal glands are unremarkable. Nonobstructing bilateral renal calculi are noted measuring up to 5 mm. There is moderate to severe right hydronephrosis secondary to a 5 mm stone within the proximal right ureter just past the ureteropelvic junction. The remainder of the ureters are decompressed. Inflammatory changes noted along the right kidney which could be due to hydronephrosis or superimposed infection. Mild diverticulosis with no secondary evidence for diverticulitis. No constipation or obstruction. The bladder is mostly decompressed. Prostate is mildly enlarged. No acute osseous abnormality identified. No ascites or adenopathy. Fat-containing bilateral inguinal hernias are noted. IMPRESSION: 1. 5 mm stone just into the proximal right ureter with moderate to severe upstream hydronephrosis. Additional right perinephric stranding could be seen with superimposed infection. 2. Additional nonobstructing bilateral renal calculi are present bilaterally. Dictated by: Dictated on workstation # [id number] Dict: 02/10/23619 Trans: 02/10/23 1449 [id number] Interpreted by: MAREK MENDES MD Electronically signed by: MAREK MENDES MD 02/10/23 1449 Departure Impression Primary Impression: Ureteral calculus, right Additional Impressions: Hydronephrosis Qualified Codes: N13.2 - Hydronephrosis with renal and ureteral calculous obstruction Acute kidney injury Disposition: 01 HOME, SELF-CARE Condition: Stable Departure-Patient Inst. Decision time for Depature: 04:41 Referrals: DENY GOMEZ MD (PCP/Family) Primary Care Physician Lester SHEN MD Patient Instructions: Kidney Stone Diet, Kidney Stone, Adult ED Add. Discharge Instructions: Drink plenty of clear liquids to stay well-hydrated. Use Percocet as prescribed for pain. Percocet may cause drowsiness, so use with caution. Avoid driving, operating machinery, or making important decisions while on Percocet. Percocet may also cause constipation, see may wish to use a stool softener such as Colace while taking Percocet. Use Zofran as prescribed for nausea or vomiting. Continue taking prophylactic antibiotics (Keflex) until otherwise instructed. Use Flomax to help open up the urinary tract to hopefully pass the stone. Strain your urine and bring any stones or fragments collected with you to your follow-up appointment. You need to see a urologist as soon as possible. Below are some contact numbers for urology clinics in our region. If you are having trouble arranging prompt follow-up, please contact Dr. Gomez's office for assistance. You will likely need help passing this stone, so prompt follow-up with a urologist is necessary. Dr. Shai Michele ([place]) [phone] [facility] [phone] [facility] [phone] Return to care if you have worsening symptoms despite following these instructions. All discharge instructions reviewed with patient and/or family. Voiced understanding. Scripts Tamsulosin HCl (Flomax) 0.4 Mg Cap 0.4 MG PO DAILY, #30 CAP Prov: JAYSHREE YOUNG MD 02/10/23 Cephalexin (Cephalexin) 500 Mg Tablet 500 MG PO TID, #30 TAB Prov: JAYSHREE YOUNG MD 02/10/23 Ondansetron (Ondansetron Odt) 4 Mg Tab.rapdis 4 MG SL Q4H PRN for NAUSEA/VOMITING, #10 TAB 1 Refill Prov: JAYSHREE YOUNG MD 02/10/23 Oxycodone HCl/Acetaminophen (Percocet 5-325 mg Tablet) 1 Each Tablet 1 TAB PO Q4H PRN for PAIN-MODERATE (5-7) MDD 6 TABS, #20 TAB Prov: JAYSHREE YOUNG MD 02/10/23 Copy Copies To 1: DENY GOMEZ MD, JOSHUA T MD Feb 10, 2023 03:03
[2023-02-10 03:13] LABS: CLARITY,URINE CLEAR; COLOR,URINE YELLOW
[2023-02-10 03:13] LABS: BASOPHILS # (AUTO) 0.1 10^3/uL (0.0-0.1); BASOPHILS % (AUTO) 1 % (0-10); EOSINOPHILS # (AUTO) 0.1 10^3/uL (0.0-0.3); EOSINOPHILS % (AUTO) 1 % (0-10); HEMATOCRIT 51 % (40-54); HEMOGLOBIN 17.9 g/dL (13.3-17.7); LYMPHOCYTES # (AUTO) 1.7 10^3/uL (1.0-4.0); LYMPHOCYTES % (AUTO) 12 % (12-44); MEAN CORPUSCULAR HEMOGLOBIN 34 pg (25-34); MEAN CORPUSCULAR HGB CONC 35 g/dL (32-36); MEAN CORPUSCULAR VOLUME 95 fL (80-99); MONOCYTES % (AUTO) 7 % (0-12); NEUTROPHILS # (AUTO) 10.9 10^3/uL (1.8-7.8); NEUTROPHILS % (AUTO) 79 % (42-75); PLATELET COUNT 183 10^3/uL (130-400); WHITE BLOOD COUNT 13.8 10^3/uL (4.3-11.0)
[2023-02-10 03:14] LABS: BACTERIA,URINE NEGATIVE /HPF; BILIRUBIN,URINE NEGATIVE (NEGATIVE); GLUCOSE, URINE (UA) NEGATIVE (NEGATIVE); KETONES,URINE NEGATIVE (NEGATIVE); LEUKOCYTE ESTERASE ,URINE NEGATIVE (NEGATIVE); NITRITE,URINE NEGATIVE (NEGATIVE); PH,URINE 6.5 (5-9); PROTEIN,URINE NEGATIVE (NEGATIVE)
[2023-02-10 03:17] LABS: ALBUMIN 4.7 GM/DL (3.2-4.5); CHLORIDE 103 MMOL/L (98-107); POTASSIUM 3.8 MMOL/L (3.6-5.0); SODIUM 141 MMOL/L (135-145)
[2023-02-10 03:19] LABS: GLUCOSE 119 MG/DL (70-105)
[2023-02-10 03:20] LABS: CARBON DIOXIDE 26 MMOL/L (21-32)
[2023-02-10 03:21] LABS: BILIRUBIN,TOTAL 1.1 MG/DL (0.1-1.0)
[2023-02-10 03:23] LABS: ALKALINE PHOSPHATASE 82 U/L (40-136); CREATININE SERUM 1.59 MG/DL (0.60-1.30); GFR ESTIMATED 46
[2023-02-10 03:24] LABS: BUN/CREATININE RATIO 13
[2023-02-10 03:26] LABS: ALANINE AMINOTRANSFERASE 16 U/L (0-55)
[2023-02-10] MEDS ORDERED: LACTATED RINGERS 1,000 ML IV ONE (04:00)
[2023-02-10] MEDS ORDERED: fentaNYL INJECTION 100 MCG/2 ML VIAL IVP ONE (04:00)
[2023-02-10] MEDS ORDERED: oxyCODONE/ACETAMINOPHEN 5/325MG TABLET PO ONE (04:45)
[2023-02-10] MEDS ORDERED: CEPHALEXIN 250 MG CAPSULE PO ONE (04:45)
[2023-02-10] MEDS ORDERED: TMSL.4C PO (04:51)
[2023-02-10] MEDS ORDERED: CEPH500T PO (04:51)
[2023-02-10] MEDS ORDERED: OXYC1TAB87 PO (04:51)
[2023-02-10] MEDS ORDERED: ONDA4TAB11 SL (04:51)
[2023-02-10 05:01] VITALS: BP 195/110
--- NOTE | 2023-02-10 06:25 | Diagnostic Imaging Report ---
PROCEDURE: CT urinary tract, rule out kidney stone. TECHNIQUE: Multiple contiguous axial images were obtained through the abdomen and pelvis without the use of intravenous contrast. Auto Exposure Controls were utilized during the CT exam to meet ALARA standards for radiation dose reduction. INDICATION: Right flank pain. COMPARISON: 02/11/2015. DISCUSSION: Mild cardiomegaly is noted. No pleural or pericardial fluid. The lung bases are well-aerated. The gallbladder is mostly contracted. The liver, pancreas, stomach, spleen, and adrenal glands are unremarkable. Nonobstructing bilateral renal calculi are noted measuring up to 5 mm. There is moderate to severe right hydronephrosis secondary to a 5 mm stone within the proximal right ureter just past the ureteropelvic junction. The remainder of the ureters are decompressed. Inflammatory changes noted along the right kidney which could be due to hydronephrosis or superimposed infection. Mild diverticulosis with no secondary evidence for diverticulitis. No constipation or obstruction. The bladder is mostly decompressed. Prostate is mildly enlarged. No acute osseous abnormality identified. No ascites or adenopathy. Fat-containing bilateral inguinal hernias are noted. IMPRESSION: 1. 5 mm stone just into the proximal right ureter with moderate to severe upstream hydronephrosis. Additional right perinephric stranding could be seen with superimposed infection. 2. Additional nonobstructing bilateral renal calculi are present bilaterally. Dictated by: Dictated on workstation # [id number]
== END 2023-02-10 05:01 | disposition home or self-care (01) ==
LOC: EDUNIT# 02:27 → ER 02:29
DX: N13.2 Hydronephrosis with renal and ureteral calculous obstruction (principal); D72.829 Elevated white blood cell count, unspecified; Z28.310 Unvaccinated for COVID-19
CPT/HCPCS: 36415; 74176; 80053; 81000; 85025; 86141